=== PATIENT | female | born 1975 | race Two or more races ===

== ENCOUNTER 2024-05-14 11:03 | Emergency (ER) | payer MEDICARE, OTHER, SELFPAY ==
--- NOTE | ~2024-05-14 | XR_ITS ---
EXAMINATION: XR ABDOMEN 1 VIEW (KUB) HISTORY: constipation COMPARISON: Comparison is made with the prior examination dated 08/20/2019. FINDINGS: Two supine views of the abdomen are submitted. The bowel gas pattern is unremarkable, without evidence of mechanical obstruction. There is minimal stool in the colon. No abnormal calcifications are identified. There are numerous surgical clips in the upper abdomen.. There are no abnormal soft tissue masses. The patient is status post fusion of the lumbar spine. XR/XR KUB IMPRESSION: Minimal stool throughout the colon. Electronically signed by: Regino Bonilla MD 05/14/2024 12:08 PM CARY
[2024-05-14 11:36] VITALS: BP 144/81; PULSE 99; RESP 20; TEMP 36.2; O2SAT 100; BMI 17.8
--- NOTE | 2024-05-14 11:36 | ED_ITS ---
HPI - Abdominal Pain General Chief Complaint: Abdominal Pain Stated Complaint: constipated, nausea Time Seen by Provider: 05/14/24 20:47 Source: patient Limitations: no limitations History of Present Illness ED Provider: Tere Waller PA-C HPI narrative: 49-year-old female with a history of iron deficiency anemia, known gastric ulcer, status post gastric bypass, chronic constipation who presents with abdominal pain x5 days. Patient states she thinks she is constipated. Patient states she is having a burning sensation in her epigastric region. Denies coffee-ground hematemesis or melena. Patient is here visiting family, she has pending follow up with her healthcare providers back home. Pt sts she takes several medications to amnage her chronic gastritis. Denies abdominal distention, inability to pass flatus, patient had a bowel movement yesterday. Related Data Previous Rx's ?Medication ?Instructions ?Recorded aluminum-mag hydroxide-simethicone 10 ml PO TID PRN indigestion #300 05/15/24 400 mg-400 mg-40 mg/5 mL oral susp mL (Maalox Maximum Strength) lidocaine HCl 2 % mucosal solution 1 appl mucous membrane TID PRN 05/15/24 (Lidocaine Viscous) indigestion #300 mL Allergies Allergy/AdvReac Type Severity Reaction Status Date / Time Penicillins [PENICILLINS] Allergy Mild RASH Verified 05/14/24 11:39 penicillin V Allergy Unknown rash, Verified 05/14/24 11:39 redness and itching trazodone Allergy Unknown inadequate Verified 05/14/24 11:39 response ibuprofen [From Motrin] Allergy Anaphylaxis Verified 05/14/24 11:39 Lamotrigine Allergy Unknown stomach Uncoded 07/23/19 00:00 upset Pt states no food allergies Allergy Unknown Unknown Uncoded 05/14/24 11:39 seasonal allergies Allergy Unknown Unknown Uncoded 05/14/24 11:39 Review of Systems Review of Systems Yes all other systems are reviewed and are negative Constitutional: Denies fatigue and Denies fever(s) Cardiovascular: Denies chest pain and Denies dyspnea Respiratory: Denies dyspnea Gastrointestinal: Reports abdominal pain, Reports constipation, Reports dyspepsia, Reports heartburn, Reports nausea, Reports vomiting and Denies hematemesis Endocrine: Denies fatigue PMFSH Past Medical History Attestation statement: The following information was validated with the patient. Social History Social History Smoked in Last 30 Days: No Use of substances other than those prescribed or required for medical reasons: No Advance Directives: No Advance Directives Information Provided: Yes Do you have a plan to hurt others: No Plan Physical Exam ED Vital Signs: Vital Signs - 24 hr 05/14/24 11:36 05/14/24 16:41 05/14/24 20:54 Temperature 97.2 F 98.1 F 98.1 F Pulse Rate 99 76 80 Respiratory Rate 20 20 16 Blood Pressure 144/81 H 144/82 H 136/84 Pulse Oximetry 100 100 100 Oxygen Delivery Method Room Air Room Air Room Air 05/15/24 00:38 Temperature 99.1 F Pulse Rate 83 Respiratory Rate 20 Blood Pressure 113/78 Pulse Oximetry 100 Oxygen Delivery Method Room Air BMI result Body Mass Index 17.8 Const Other: Alert Orientation/consciousness: patient oriented x3 Resp Effort & Inspection: normal respiratory effort Cardio Other: Normal peripheral perfusion GI Other: Abdomen is soft, nondistended nontender no guarding Skin Other: Warm dry no rash Neuro General: patient oriented x3, gait normal, no focal motor deficits and CN's II- XI intact bilaterally Psych Other: Cooperative Course Course Course Narrative: This is a Rapid Medical Exam performed in triage by Maryan Pinzon PA-C. Full HPI, ROS and PE to be performed by primary ED provider. 49yo F w/pmhx chronic constipation presenting to the ED c/o constipation x5 days now with nausea & abdominal pain. Admits is passing small stools. Denies vomiting. Admits she had a CT scan in [place] 5 days ago for similar sx & showed constipation. tried multiple OTC meds & enema w/o relief PE: abdomen soft & nontender, no rebound or guarding Plan: Labs, KUB Reevaluation(s) Reevaluation #1: Symptoms improved with Maalox lidocaine we will send her with a this medication while she is here visiting Medical Decision Making Medical Decision Making MDM Narrative: 49-year-old female with a history of known iron deficiency anemia, gastric ulcer, status post gastric bypass, chronic constipation who presents with abdominal pain x5 days. Patient states she thinks she is constipated. Patient states she is having a burning sensation in her epigastric region. Denies coffee-ground hematemesis or melena. Patient is here visiting family, she has pending follow up with her healthcare providers back home. Pt sts she takes several medications to manage her chronic gastritis. Denies abdominal distention, inability to pass flatus, patient had a bowel movement yesterday. Problem: Known gastritis, chronic constipation, gastric bypass patient History: Per patient I have considered the following differential diagnoses: Acute gastritis, chronic epigastric pain, biliary colic, cholecystitis, pancreatitis, poorly controlled GERD, perforated ulcer, active GI bleed Plan: Screening labs and a KUB were obtained from triage. The patient is not currently constipated. Her labs were overall stable, she is anemic. The patient is aware that she is anemic, she is pending follow up this week with her equine pharmacology technician. She is not having symptoms of active GI bleed, upper or lower. Her discomfort is chronic, it is not new. I do not feel she requires advanced imaging. Her abdominal exam was benign, she has no peritoneal signs to suggest a perforated ulcer. And there was no free air noted on KUB. We will give Maalox with lidocaine to see if this helps her symptoms. I have independently reviewed the following tests: Labs: Stable anemia, no leukocytosis, no electrolyte abnormality, creatinine and BUN normal KUB: XR/XR KUB IMPRESSION: Minimal stool throughout the colon. Electronically signed by: Regino Bonilla MD 05/14/2024 12:08 PM [facility] Lab Data 05/14/24 11:49 05/14/24 11:49 Labs: Lab Results 05/14/24 Range/Units 11:49 WBC 5.4 (4.8-10.8) X10*3/uL RBC 4.56 (4.20-5.50) X10*6/uL Hgb 9.5 L (12.0-16.0) g/dl Hct 32.3 L (37.0-47.0) % MCV 70.8 L (80.0-98.0) fL MCH 20.8 L (27.0-33.0) pg MCHC 29.4 L (31.0-35.0) g/dl RDW 21.7 H (11.0-16.0) % Plt Count 347 (160-400) X10*3/uL MPV 8.5 L (9.4-12.3) fL Immature Gran % (Auto) 0.4 (0.0-0.4) % Neut % (Auto) 58.3 (45-73) % Lymph % (Auto) 28.9 (20-40) % [place]cho % (Auto) 8.5 (2-11) % Eos % (Auto) 2.8 (0-4) % Baso % (Auto) 1.1 (0-2) % Lymph # (Auto) 1.6 (1.2-4.9) X10*3/uL [place] # (Auto) 0.5 (0.1-1.2) X10*3/uL Eos # (Auto) 0.2 (0.0-0.4) X10*3/uL Baso # (Auto) 0.1 (0.0-0.2) X10*3/uL Abs Immat Gran (auto) 0.02 (0.00-0.03) X10*3/uL Absolute Neuts (auto) 3.2 (2.0-8.3) x10*3/uL Absolute Nucleated RBC 0.000 (0.0-0.012) X10*3/uL Nucleated RBC % (auto) 0.0 (0.0-0.2) /100WBC Sodium 142 (135-145) mmol/L Potassium 3.4 (3.3-5.1) mmol/L Chloride 110 H (96-108) mmol/L Carbon Dioxide 24 (22-29) mmol/L Anion Gap 11 L (12-20) BUN 8 L (9-16) mg/dL Creatinine 0.74 (0.5-1.4) mg/dL Estim Creat Clear Calc 64.7 Estimated GFR > 60 Random Glucose 100 (60-115) mg/dL Calcium 9.2 (8.4-10.2) mg/dL Magnesium 2.0 (1.6-2.6) mg/dL Total Bilirubin 0.3 (0.0-1.0) mg/dL Direct Bilirubin 0.2 (0.0-0.5) mg/dL AST 24 (5-31) U/L ALT 11 (0-31) U/L Alkaline Phosphatase 92 (39-117) U/L Total Protein 7.8 (6.5-8.0) g/dL Albumin 4.0 (3.5-5.0) g/dL Lipase 20 (8-78) U/L Medications Administered Discontinued Medications Generic Name Dose Route Start Last Admin Trade Name José Miguel PRN Reason Stop Dose Admin Acetaminophen 650 mg 05/14/24 16:41 05/14/24 16:44 Acetaminophen 325 Mg Tablet PO 05/14/24 16:42 650 mg ONCE ONE Administration Al Hydroxide/Mg Hydroxide 30 ml 05/14/24 23:48 05/14/24 23:55 Magnesium Hydrox/Alum Hydrox 30 Ml Oral.Susp PO 05/14/24 23:49 30 ml ONCE ONE Administration Lidocaine HCl 15 ml 05/14/24 23:48 05/14/24 23:55 Lidocaine Hcl Viscous 2 % 15 Ml Solution MUCOUS MEM 05/14/24 23:49 15 ml ONCE ONE Administration Discharge Plan Discharge Clinical Impression: Gastritis Patient Disposition: Home, Self-Care Instructions: Gastritis (ED), Diet for Stomach Ulcers and Gastritis (ED) Additional Instructions: All of your labs were normal, you were noted to be anemic, which you were aware of. Keep your pending appointment with a equine pharmacology technician. In regard for your upper abdominal discomfort, it appears your gastritis is exacerbated. See home care instructions. Use the Maalox lidocaine combination to help alleviate your discomfort. You need to follow up for a repeat endoscopy. Call your healthcare providers when you return home. Prescriptions: New alum-mag hydroxide-simeth [Maalox Maximum Strength] 400-400-40 mg/5 mL suspension 10 ml PO TID PRN (Reason: indigestion) Qty: 300 0RF lidocaine HCl [Lidocaine Viscous] 2 % solution 1 appl mucous membrane TID PRN (Reason: indigestion) Qty: 300 0RF Rx Instructions: use an equal amount with the maalox Print Language: [place]
[2024-05-14 11:56] LABS: MANUAL DIFF FLAG NO
[2024-05-14 12:01] LABS: Basophils Absolute Auto 0.1 X10*3/uL (0.0-0.2); Basophils Percent Auto 1.1 % (0-2); Eosinophils Absolute Auto 0.2 X10*3/uL (0.0-0.4); Eosinophils Percent Auto 2.8 % (0-4); Hematocrit 32.3 % (37.0-47.0); Hemoglobin 9.5 g/dl (12.0-16.0); Imm Gran Abs Auto 0.02 X10*3/uL (0.00-0.03); Imm Gran Pct Auto 0.4 % (0.0-0.4); Lymphocytes Absolute Auto 1.6 X10*3/uL (1.2-4.9); Lymphocytes Percent Auto 28.9 % (20-40); Mean Corpuscular HGB Conc 29.4 g/dl (31.0-35.0); Mean Corpuscular Hemoglobin 20.8 pg (27.0-33.0); Mean Corpuscular Volume 70.8 fL (80.0-98.0); Mean Platelet Volume 8.5 fL (9.4-12.3); Monocytes Absolute Auto 0.5 X10*3/uL (0.1-1.2); Monocytes Percent Auto 8.5 % (2-11); Neutrophils Absolute Auto 3.2 x10*3/uL (2.0-8.3); Neutrophils Percent Auto 58.3 % (45-73); Platelet Count 347 X10*3/uL (160-400); Red Blood Count 4.56 X10*6/uL (4.20-5.50); Red Cell Distribution Width 21.7 % (11.0-16.0); White Blood Count 5.4 X10*3/uL (4.8-10.8)
[2024-05-14 12:15] LABS: Alanine Aminotransferase 11 U/L (0-31); Alkaline Phosphatase 92 U/L (39-117); Anion Gap 11 (12-20); Aspartate Amino Transferase 24 U/L (5-31); Bilirubin Direct 0.2 mg/dL (0.0-0.5); Bilirubin Total 0.3 mg/dL (0.0-1.0); Blood Urea Nitrogen 8 mg/dL (9-16); Calcium 9.2 mg/dL (8.4-10.2); Carbon Dioxide 24 mmol/L (22-29); Chloride 110 mmol/L (96-108); Creatinine Clr Calc Pharmacy 64.7; Estimated Glomerular Filt Rate > 60; Glucose Random 100 mg/dL (60-115); Lipase 20 U/L (8-78); Potassium 3.4 mmol/L (3.3-5.1); Sodium 142 mmol/L (135-145); Total Protein 7.8 g/dL (6.5-8.0)
--- OUTSIDE RECORDS SUMMARY | 2024-05-14 13:42 | XMS_ITS | Encounter Summary ---
Author Organization [facility] Address [address] [place] [id number] Care Team Providers Care Human Resources Coordinator Name Role Phone José Antonio Villaseñor MD Primary Care Provider [phone] Rodríguez Saxena MD Unavailable Eldon Fitch MD Unavailable Reason for Referral * Consultation (Routine) - Authorized Specialty Diagnoses / Procedures Referred By Contac t Referred To Contact Hematology and Oncology Diagnoses Iron deficiency anemia, unspecified iron deficiency anemia type Procedures [place] OFFICE/OUTPATIENT [facility] 60 [place] [address] [place] [address] Phone: tel: fax: Jian Ramírez MD [address] [facility] [address] [place] [id number] Phone: tel: fax: Referral ID Status Reason Start Date Expiration Date Visits Requested Visits Authorized [id number] Authorized Specialty Services Required 05/01/2024 05/01/2025 1 1 Reason for Visit * Reason Comments ER Follow-up Encounter Details Date Type Department Care Team (Late Contact Info) Description 05/01/2024 9:00 AM EST Office Visit [facility] Family Medicine - [facility] [address] [facility], [address] [place] [id number] [place] [address] [place] [address] Constipation, unspecified constipation type (Primary Dx); Iron deficiency anemia, unspecified iron deficiency anemia type; Acute left-sided low back pain without sciatica; History of gastric bypass Social History Tobacco Use Types Packs/Day Years Used Date Smoking Tobacco: Former Cigarettes Smokeless Tobacco: Never PHQ-2 Answer Date Recorded Patient Health Questionnaire-2 Score 2 09/15/2021 Comments No Sex and Gender Information Value Date Recorded Sex Assigned at Female 10/09/2022 1:12 PM EDT Legal Sex Female 12:18 AM EDT Gender Identity Female 10/09/2022 1:12 PM EDT Sexual Orientation Straight 10/09/2022 1: 12 PM EDT documented as of this encounter Last Filed Vital Signs Vital Sign Reading Time Taken Comments Blood Pressure 106/74 05/01/2024 9:09 AM EST Pulse 73 05/01/2024 9:09 AM EST Temperature - - Respiratory Rate - - Oxygen Saturation 97% 05/01/2024 9:09 AM EST Inhaled Oxygen Concentration - - Weight 49.7 kg (109 lb 9.6 oz) 05/01/2024 9:09 A M EST Height 160 cm (5' 2.99 ) 05/01/2024 9:09 AM EST Body Mass Index 19.42 05/01/2024 9:09 AM EST documented in this encounter Progress Notes * José Antonio Villaseñor MD - 05/01/2024 9:00 AM EST Subjective Patient ID: Shayla Brandon is a 49 y.o. female who presents for ER Follow-up. Presents for follow-up after ER visit on 04/30/2024. Reports feeling less pain today. Objective Physical Exam Vitals and nursing note reviewed. Constitutional: Appearance: Normal appearance. Pulmonary: Effort: Pulmonary effort is normal. Abdominal: General: There is no distension. Palpations: Abdomen is soft. Tenderness: There is no abdominal tenderness. Skin: General: Skin is warm and dry. Neurological: General: No focal deficit present. Mental Status: She is alert. Psychiatric: Mood and Affect: Mood normal. Behavior: Behavior normal. Assessment/Plan Diagnoses and all orders for this visit: Plan: Reviewed ER note from 04/30/24. Independently reviewed CT results. Discussed findings of constipation. Reviewed supportive care. Discussed increased fiber. Reviewed CBC results in ER, consistentwith her chronic anemia. Suspect poor iron absorption due to hx fo gastric bypass surgery. Refer to hematology for further evaluation. Constipation, unspecified constipation type Iron deficiency anemia, unspecified iron deficiency anemia type - Ambulatory referral to Hematology / Oncology; Future History of gastric bypass documented in this encounter Plan of Treatment Scheduled Referrals Name Type Priority Associated Diagnoses Orde r Schedule Ambulatory referral to Hematology / Oncology Outpatient Referral Routine Iron deficiency anemia, unspecified iron deficiency anemia type Expected: 05/01/2024 (Approximate), Expires: 05/01/2025 documented as of this encounter Visit Diagnoses Diagnosis Constipation, unspecified constipation type- Primary Iron deficiency anemia, unspecified iron deficiency anemia type Acute left-sided low back pain without sciatica History of gastric bypass documented in this encounter Care Teams Human Resources Coordinator Relationship Specialty Start [place] [address] [place] [address] PCP - General 07/19/21 Rodríguez Saxena MD [address] [facility] [address] [place] [address] Consulting Physician Neurology 01/09/23 Eldon Fitch MD [address] [facility] [address] [place] [id number] Consulting Physician Neurosurgery 05/08/23 documented as of this encounter
--- OUTSIDE RECORDS SUMMARY | 2024-05-14 13:42 | XMS_ITS ---
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 Name Role Phone Ramon Woods Unavailable [phone] Patient, patient Unavailable Unavailable Allergies Allergen (clinical drug ingredient) Drug/Non Drug Allergy documented on EMR Reaction Allergy Type Onset Date Status Penicillins penicillins (uncoded) rash Allergy Active Results Component Value Reference Range Notes Ultrasound guided injection right Reviewed date:08/28/2023 08:02:49 PM Interpretation: Performing Lab: Notes/Report: Ultrasound:DX Capsulitis/Soo nt Pain Rt Ankle Reviewed date:08/28/2023 08:37:08 PM Interpretation: Performing Lab: Notes/Report: REASON FOR VISIT Burning, Tingling and Numbness Bilateral feet, Right foot leg pain Medications Medication SIG (Take, Route, Fr equency, Duration) Notes Start Date End Date Status cyclobenzaprine 5 mg 1 tab(s) orally 3 times a day Active amitriptyline 10 mg 1 tab(s) orally once a day (at bedtime) Active Linzess 145 mcg 1 cap(s) orally once a day Active SUMAtriptan 100 mg 1 tab(s) orally once Active Simponi Active omeprazole 20 mg as directed orally once a day Active DULoxetine 30 mg 1 cap(s) orally 2 times a day Active levocetirizine 5 mg 1 tab(s) orally once a day (in the evening) Active Social History Tobacco Use: Social History Observation Description Date Details (start date - stop date) Current Smoker NA - NA Smoking Question Answer Notes Additional Findings: Tobacco User Light cigarett e smoker ((1-9 cigs/day) Are you a: current smoker How often do you smoke cigarettes? some days, bu t not every day How many cigarettes a day do you smoke? 5 or les s Alcohol Question Answer Notes Did you have a drink contain ing alcohol in the past year? Yes How often did you have six o r more drinks on one occasion in the past year? Never (0 points) How many drinks did you have on a typical day when you were drinking in the past year? 1 or 2 (0 points) How often did you have a dri nk containing alcohol in the past year? 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) Active confirmed Vital Signs Blood pressure systolic 110 mm Hg 08/28/19 24 Blood pressure diastolic 56 mm Hg 024 Heart Rate 54 /min 08/28/2023 Height 63 in 08/28/2023 Weight 106 lbs 08/28/2023 BMI 18.78 08/28/2023 Procedures Procedure Date Ordered Date Performed Result Body Sit e INJ TENDON SHEATH/LIGAMENT 08/28/2023 08/28/2023 RT Encounters Encounter Location Date Provider Diagnosis Ramon Peggy [facility] [address] [id number] 08/28/2023 Ramonlisbet Woods Pain in right ankle and joints of right foot M25.571 ; 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 ; Other specified acquired deformities of right lower leg M21.861 ; Other synovitis and tenosynovitis, right ankle and foot M65.871 and Other instability, right ankle M25.371 Assessments Encounter Date Diagnosis (ICD Code) Assessment Notes Treatment Notes Treatment Clinical Notes Section Notes 08/28/2023 Pain in right ankle and joints of right foot (ICD-10 - M25.571) Discussed with patient to rest the extremity and reduce activity, apply ice for 10 minutes every two hours, maintain the strapping and apply compression dressing over the area and lastly, keep the extremity elevated above heart level with pillows 08/28/2023 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 Use strapping. Follow up 1 week Discussed in detail with the patient the benefit of strapping to support and stabilize strained structures as well as immobilization to facilitate healing, decrease of inflammation and swelling Plan Of Treatment Treatment Notes Assessment Notes Pain in right ankle and join ts of right foot Discussed with patient to rest the extremity and reduce activity, apply ice for 10 minutes every two hours, maintain the strapping and apply compression dressing over the area and lastly, keep the extremity elevated above heart level with pillows Other Therapeutic injectio n given to relief nerve pain and inflammation. Use strapping. Follow up 1 week Next Appt Details Follow Up: 2 Weeks, Reason: Procedure Notes * Category Sub-Category Detail Notes (24364)Foot/Ankle Purpose Strapping of t he foot and ankle consisting of application of non-medicated, adhesive gauze dressings, applied by overlapping wraps of gauze to exert pressure and hold a structure in place for the purpose of providing structural support and to offload bony prominence, support, stabilize and immobilize strained and stressed tissues and help compress additional edema from the area. The strapping is medically reasonable and necessary. Indication Foot Deformity/Insta bility Location Right foot and ankle Type of Strapping Modified Hurt Compr vane, to knee, Surgigrip size: E Patient Instructions Patient instructed to leave strapping intact for 24 hours, then may remove. Patient was advised to remove strapping sooner should become uncomfortable., Upon removal of strapping, patient to continue use of Surgi-stretcher helper Materials Used Tubigrip/Coban Tendon Sheath/Plantar Fascia Injection Right Peroneal Tendon 1cc 0.5% Marcaine Plain 1cc Dexamethasone 4 mg/ml Procedure in detail: A #25 gauge 1.5 needle filled with the solution noted was introduced into the site using a guided ultrasound throughout the procedure to avoid vascular trauma. The painful site was fully infiltrated. Following the injection, pressure was maintained at the site. The patient tolerated the procedure well. Right Extensor Digital Tendon Trigger Point Injection Right Location : Sural.5cc Lidocaine 2%, .5cc Vitamin B12 (14751) Needle Guided Ultrasound Location Right Foot, Area prepped with Alcohol Indications Significant edema ov erlying the tendonous structures Possible obstruction to painful area To more accurately inject the structure with significant pathology Technique After clinical evalu ation and examination and review of focused history directed at the site of chief complaint, it was discussed with patient that in order to properly visualize the area to be infiltrated, needle guided ultrasound was indicated. The area of chief complaint was scanned using a 8.0 mhz probe. Views were taken in both the longitudinal and transverse planes. Impression Use of Needle Guided Ultrasound Demonstrates: Inflammation Soft Tissue Edema surrounding the structure Tendonitis of the structure (91084) Limited Extremity Ultrasound Location , Right Area prepped with Alcohol Indications Pain or dysfunction Technique After clinical evalu ation and examination and review of focused history directed at the site of chief complaint, it was discussed with patient that in order to properly visualize the area, ultrasound was indicated. The area of chief complaint was scanned using a 8.0 mhz probe. Views were taken in both the longitudinal and transverse planes., Permanently recorded images saved and available upon request Progress Notes * Shayla TILLEYDOB:[birth year] (48 yo F)Acc No.[id number]:08/28/2023 Patient:?Shayla TILLEY Provider:?Ramon Woods DPM :1975???Age:48 Y???Sex:Female D ate:08/28/2023 Address:[address] [place], [place] [id number] Subjective: * Chief Complaints: * ???Burning, Tingling and Num bness Bilateral feetRight foot leg pain * HPI: ???Left foot:?Duration?3 years.?Symptoms?for?more than 6 months?numbness, burning sensation, tingling sensation, sharp pain, shooting pain,?that radiates to the toes,?instability, Aggravated by: any physical activity.?ConservativeTreatment?Denies prior treatment.?weakness?throughout the foot, noticed when walking.?pain?for?more than 6 months?dorsal forefoot, plantar forefoot, Onset: gradual with acute worsening, Severity: that is worsening, Nature:?numbness,?burning sensation,?tingling sensation, sharp pain, shooting pain,?that radiates to the toes,?instability,?, Aggravated: walking, prolonged standing, any physical activity?, Relieved: nothing at this time.?numbness?on the top of the foot, on the bottom of the foot.?pain scale?.07/10.?parasthesia scale?,08/09.?Patient comes to office for continuation of b12 injections.Patient states she still is having constant pain as in burning/numbness and notes that tingling sensation comes and goes.Patient states she has seen little improvement but still has major pain. ???Right foot:?Duration?3 years.?Symptoms?for?more than 6 months?numbness, burning sensation, tingling sensation, sharp pain, shooting pain,?that radiates to the toes, aches, instability, Onset: gradual with acute worsening, Nature: pressure sensation, Nature: gnawing, Nature: shooting, Aggravated by: any physical activity.?Conservative Treatment?Denies prior treatment.?weakness?throughout the foot, noticed when walking.?numbness?for?more than 6 months?throughout the foot.?pain?for?less than 6 months?dorsal forefoot, plantar forefoot, dorsal midfoot, plantar midfoot,??Onset: gradual with acute worsening, Severity: that is worsening, Nature:?numbness,?burning sensation,?tingling sensation, sharp pain, shooting pain,?that radiates to the toes,?instability,?Aggravated: walking, prolonged standing, any physical activity?, Relieved: nothing at this time?.?pain scale?.09/09.?parasthesia scale?08/09.?Bilateral feet:?pain?at rest, on both sides, on the bottom, on the top, Onset: gradual with acute worsening, Nature: shooting.?swelling?for?less than 6 months that is constant, that worsens in the evening, Onset: gradual with acute worsening, Nature: cramping, pressure sensation, Aggravated by: any physical activity.?weakness?with walking, with climbing stairs, with getting up from sitting.?Symptoms?numbness, tingling sensation, burning sensation, sharp pain, shooting pain, instability,?that radiates to the toes, Onset: gradual with acute worsening, , cramping, coolness, aches, that radiates to the toes, that radiates up the leg.?instability?feeling of giving way when walking, feeling of giving way with side to side movement.?cramps?during ambulation , during ambulation, at night time.?Prior Treatment?Denies prior treatment.?Bilateral Leg:?pain?during ambulation, at rest, Onset: gradual with acute worsening, Nature: shooting.?swelling?that is constant, that worsens in the evening, Onset: insidious, Nature: cramping, pressure sensation, Aggravated by: any physical activity, Relieved by: lying down.?weakness?with walking, with climbing stairs, with getting up from sitting. Symptoms?tingling sensation, numbness, that radiates up the leg, Onset: gradual with acute worsening , cramping, aches, coolness, that radiates to the toes.?instability?feeling of giving way when walking, feeling of giving way with side to side movement.?cramps?during ambulation , during ambulation, at night time.? * ROS:?Neurology:?Headache?yes.?Tingling/numbness/burning?yes.? * Medical History:? * Surgical History:?Lower back fusion 2021Upper neck fusion 2020 * Family History:?Mother: alexa dove 72 yrs, diagnosed with Hypertension.?Father: alive 76 yrs.?Siblings: alive.?Child: alive.?1 sister(s) . 3 son(s) , 1 daughter(s) - healthy. .? * Social History:?General:?Alcohol?Did you have a drink containing alcohol in the past year??Yes,?How often did you have six or more drinks on one occasion in the past year??Never (0 points),?How many drinks did you have on a typical day when you were drinking in the past year??1 or 2 (0 points),?How often did you have a drink containing alcohol in the past year??Two to three times per week (3 points),?Points?3,?Interpretation?Positive.?Caffeine: 9 cups a day. Smoking?Additional Findings: Tobacco User?Light cigarette smoker ((1-9 cigs/day),?Are you a:?current smoker,?Packs per day:?.25,?# of years has been smoking?9,?How often do you smoke cigarettes??some days, but not every day,?How many cigarettes a day do you smoke??5 or less.?Exercise: NONE. Recreational drug use: NONE. HIV/AIDS: NEGATIVE. * Medications:?TakingLinzess 1 45 mcg capsule 1 cap(s) orally once a day SUMAtriptan 100 mg tablet 1 tab(s) orally once cyclobenzaprine 5 mg tablet 1 tab(s) orally 3 times a day amitriptyline 10 mg tablet 1 tab(s) orally once a day (at bedtime) DULoxetine 30 mg delayed release capsule 1 cap(s) orally 2 times a day levocetirizine 5 mg tablet 1 tab(s) orally once a day (in the evening) omeprazole 20 mg tablet, disintegrating, delayed release as directed orally once a day Simponi Medication List reviewed and reconciled with the patientTaking Linzess 145 mcg capsule 1 cap(s) orally once a day Taking SUMAtriptan 100 mg tablet 1 tab(s) orally once Taking cyclobenzaprine 5 mg tablet 1 tab(s) orally 3 times a day Taking amitriptyline 10 mg tablet 1 tab(s) orally once a day (at bedtime) Taking DULoxetine 30 mg delayed release capsule 1 cap(s) orally 2 times a day Taking levocetirizine 5 mg tablet 1 tab(s) orally once a day (in the evening) Taking omeprazole 20 mg tablet, disintegrating, delayed release as directed orally once a day Taking Simponi Medication List reviewed and reconciled with the patient * Allergies:?penicillins: rash - Criticality Unknownno[Allergies Verified] Objective: * Vitals:?Height:63, Weight:10 6, BMI:18.78, Blood Pressure:110/56, Heart Rate:54, Pain Scale:6, Shoe Size: 7.5-8. * Examination: ???Vascular: ?Posterior Tibial Pulse?Bilateral Posterior Tibial palpable 1/4.?Dorsalis Pedis Pulse?Bilateral Dorsalis Pedis palpable 1/4.?Capillary Refill?Bilateral Delayed < 3 seconds digits 1-5.?Temperature Gradient?Bilateral Foot/Ankle Cool to warm distal to proximal.?Edema?Bilateral Foot pitting mild.?Inspection?Bilateral Foot Ankle negative cyanosis palor on elevation rubor upon dependency ecchymosis positive telangectasias- hair growth absent.?Cramping?Bilateral Patient complains of cramping in foot during ambulation Intermittant.?Neurologic: ?General?Bilateral gross epicritic sensations diminished Lesser toes(S1 nerve root) Great toe(L5 nerve root) Medial and lateral aspect calves(L4,L5 nerve roots) .?Sharp sensation?Bilateral diminished dorsal medial and lateral midfootL4, L5 nerve roots) plantar medial and lateral midfoot(L5,S1 nerve roots) digits(L5,S1 nerve roots).?Vibratory?Bilateral great toe lesser digits.?Proprioception?Bilateral: diminished.?[place] 5.07 Monofilament?Bilateral hallux lesser digits medial arch lateral arch negative.?Tinel's Sign?Bilateral positive common peroneal nerve medial dorsal cutaneous nerve posterior tibial nerve.?Parasthesia?Bilateral foot numbness foot ankle leg tingling.?Dermatologic: ?Skin?Bilateral Foot Ankle poor turgor thin shiny dry diffuse hyperpigmentary changes No breakdown or ulceration noted , Bilateral ankle lateral 5mm area diffuse hyperpigmentary changes atrophic skin shiny mottled and splotchy appearance indurated.?Interdigital Maceration?Bilateral: absent interspace 1-4.?Erythema?Bilateral: foot absent.?Orthopedic: ?Foot Type?Bilateral neutral.?Ankle Joint ROM?Bilateral equinus.?STJ ROM?Bilateral normal.?Calcaneal Stance Position?Bilateral, Neutral.?Lisfranc's Joint ROM?Bilateral, Normal.?Forefoot Position? Bilateral Valgus.?Hammertoes?Bilateral contracted digital syndrome hammertoe digits 2-5.?Pain on Palpation MPJ's/Digits?Bilateral 2nd 3rd 4th 5th mtpj dorsal plantar Painful interspace 1st intermetatarsal space 2nd intermetatarsal space 3rd intermetatarsal space 4th intermetatarsal space.?Pain on Palpation Foot?Bilateral pain along the course of the posterior tibial tendon , EDL tendon , Lisfranc joint and medial subtalar joint.?Pain on Palpation Ankle?Right pain on palpation to tib fib joint syndesmosis peroneals.?Gait?Bilateral: Antalgic.? Therapeutic Interventions: Assessment: * Assessment: 1.?Idiopathic progressive ne uropathy - G60.3 (Primary)?2.?Pain in right ankle and joints of right foot - M25.571?3.?Other specified acquired deformities of right lower leg - M21.861?4.?Other synovitis and tenosynovitis, right ankle and foot - M65.871?5.?Other instability, right ankle - M25.371? Plan: * Treatment: Notes: Discussed with patient to rest the extremity and reduce activity, apply ice for 10 minutes every two hours, maintain the strapping and apply compression dressing over the area and lastly, keepthe extremity elevated above heart level with pillows??2.?Other synovitis and tenosynovitis, right ankle and foot?Imaging: Ultrasound guided injection right (Performed Date - 08/28/2023) ?Procedure: INJ TENDON SHEATH/LIGAMENT (Performed Date 08/28/2023)?RT 3.?Others? Notes: Therapeutic injection given to relief nerve pain and inflammation. Use strapping. Follow up 1 week?? Clinical Notes:Discussed in detail with the patient the benefit of strapping to support and stabilize strained structures as well as immobilization to facilitate healing, decrease of inflammation andswelling?? * Procedures:?(34061) Needle Guided Ultrasound:?Location?Right Foot, .?Area prepped with?Alcohol.?Indications?Significant edema overlying the tendonous structures Possible obstruction to painful area To more accurately inject the structure with significant pathology.?Technique After clinical evaluation and examination and review of focused history directed at the site of chief complaint, it was discussed with patient that in order to properly visualize the area to be infiltrated, needle guided ultrasound was indicated. The area of chief complaint was scanned using a 8.0 mhz probe. Views were taken in both the longitudinal and transverse planes. .?Impression?Use of Needle Guided Ultrasound Demonstrates: Inflammation Soft Tissue Edema surrounding the structure Tendonitis of the structure.?(89187) Limited Extremity Ultrasound:?Location?, Right.?Area prepped with?Alcohol.?Indications?Pain or dysfunction.?Technique?After clinical evaluation and examination and review of focused history directed at the site of chief complaint, it was discussed with patient that in order to properly visualize the area, ultrasound was indicated. The area of chief complaint was scanned using a 8.0 mhz probe. Views were taken in both the longitudinal and transverse planes.,Permanently recorded images saved and available upon request.?Trigger Point Injection:?Right?Location:?Sural.5cc Lidocaine 2%, .5cc Vitamin B12.?Tendon Sheath/Plantar Fascia Injection:?Right Peroneal Tendon?1cc 0.5% Marcaine Plain?1cc Dexamethasone 4 mg/ml?Procedure in detail: A #25 gauge 1.5 needle filled with the solution noted was introduced into the site using a guided ultrasound throughout the procedure to avoid vascular trauma. The painful site was fully infiltrated. Following the injection, pressure was maintained at the site. The patient tolerated the procedure well..?Right Extensor Digital Tendon?.?(70900)Foot/Ankle:?Purpose?Strapping of the foot and ankle consisting of application of non-medicated, adhesive gauze dressings, applied by overlapping wraps of gauze to exert pressure and hold a structure in place for the purpose of providing structural support and to offload bony prominence, support, stabilize and immobilize strained and stressed tissues and help compress additional edema from the area. The strapping is medically reasonable and necessary..?Materials Used?Tubigrip/Coban.?Indication?Foot Deformity/Instability .?Location?Right foot and ankle.?Type of Strapping???Modified Hurt Compression, to knee, Surgigrip size: E.?Patient Instructions?Patient instructed to leave strapping intact for 24 hours, then may remove. Patient was advised to remove strapping sooner should become uncomfortable., Upon removal of strapping, patient to continue use of Surgi-stretcher helper .? * Procedure Codes:?61690 US XT R NON-VASC LMTD, Modifiers: 59 38519 STRAPPING OF ANKLE AND/OR FT, [place]: [place] 81909 INJ TENDON SHEATH/LIGAMENT, Mod[place]: [place] 58565 ULTRASOUND GUIDANCE FOR NEEDLE PLACEMENT, Modifiers: 59 J1100 INJ DEXAMETHOSONE SODIM PHOSHATE 1 MG * Preventive Medicine:? ??Counseling:?Smoking cessation recommended?Patient counselled on the dangers of tobacco use and urged to quit.?05/29/2023,?Counseled the Patient on tobacco use, cessation provided?05/29/2023.?Alcohol Screening?MODERATION OF ETOH CONSUMPTION RECOMMENDATION:?Alcohol abuse prevention education.? Injury prevention: Trip and fall precautions reviewed?Screening:?No falls in the past year.?Proper footwear?Advise Athletic shoe.? ??PQRS:?PAIN ASSESSMENT WAS PERFORMED UTILIZED THE NUMERIC RATING SCALE ?Follow- up Plan documented:?Yes.?The patient was advised to call the office as needed with any questions or concerns prior to next appointment. * Follow Up:?2 Weeks * * Sign off status: Completed true * Provider:?Ramon Woods DPM Date:?08/28/2023 Generated for Vj lindsay/Nickolas/eTransmitting on:?05/14/2024 01:42 PM EST History and Physical Notes * HPI (History of Present Illness) Category Sub-Category Detail Notes Category Not es Bilateral feet swelling that is constant , that worsens in the evening, Onset: gradual with acute worsening, Nature: cramping, pressure sensation, Aggravated by: any physical activity Symptoms numbness, tingling s ensation, burning sensation, sharp pain, shooting pain, instability, that radiates to the toes, Onset: gradual with acute worsening, , cramping, coolness, aches, that radiates to the toes, that radiates up the leg instability feeling of giving wa y when walking, feeling of giving way with side to side movement pain at rest, on both rolando es, on the bottom, on the top, Onset: gradual with acute worsening, Nature: shooting weakness with walking, with c limbing stairs, with getting up from sitting cramps during ambulation , during ambulation, at night time Prior Treatment Denies prior treatme nt Left foot Symptoms numbness, burnin g sensation, tingling sensation, sharp pain, shooting pain, that radiates to the toes, instability, Aggravated by: any physical activity Patient comes to office for continuation of b12 injections.Patient states she still is having constant pain as in burning/numbness and notes that tingling sensation comes and goes.Patient states she has seen little improvement but still has major pain. weakness throughout the foot, noticed when walking numbness on the top of the fo ot, on the bottom of the foot pain dorsal forefoot, armando ntar forefoot, Onset: gradual with acute worsening, Severity: that is worsening, Nature: numbness, burning sensation, tingling sensation, sharp pain, shooting pain, that radiates to the toes, instability, , Aggravated: walking, prolonged standing, any physical activity , Relieved: nothing at this time pain scale . 4/10 parasthesia scale , 5/10 ConservativeTreatment Denies prior treat ment Duration 3 years Bilateral Leg swelling that is constant , that worsens in the evening, Onset: insidious, Nature: cramping, pressure sensation, Aggravated by: any physical activity, Relieved by: lying down Symptoms tingling sensation, numbness, that radiates up the leg, Onset: gradual with acute worsening , cramping, aches, coolness, that radiates to the toes instability feeling of giving wa y when walking, feeling of giving way with side to side movement pain during ambulation, a t rest, Onset: gradual with acute worsening, Nature: shooting weakness with walking, with c limbing stairs, with getting up from sitting cramps during ambulation , during ambulation, at night time Right foot Symptoms numbness, burnin g sensation, tingling sensation, sharp pain, shooting pain, that radiates to the toes, aches, instability, Onset: gradual with acute worsening, Nature: pressure sensation, Nature: gnawing, Nature: shooting, Aggravated by: any physical activity weakness throughout the foot, noticed when walking numbness throughout the foot pain dorsal forefoot, armando ntar forefoot, dorsal midfoot, plantar midfoot, Onset: gradual with acute worsening, Severity: that is worsening, Nature: numbness, burning sensation, tingling sensation, sharp pain, shooting pain, that radiates to the toes, instability, Aggravated: walking, prolonged standing, any physical activity , Relieved: nothing at this time pain scale . 6/10 parasthesia scale 5/10 Conservative Treatment Denies prior alvaro tment Duration 3 years Examination Category Sub-Category Detail Notes Category Not es Vascular Dorsalis Pedis Pulse Bilateral Dorsalis P dickson palpable 1/4 Posterior Tibial Pulse Bilateral Posteri or Tibial palpable 1/4 Capillary Refill Bilateral Delayed < 3 seconds digits 1-5 Temperature Gradient Bilateral Foot/Ankl e Cool to warm distal to proximal Inspection Bilateral Foot Ankle negative cyanosis palor on elevation rubor upon dependency ecchymosis positive telangectasias- hair growth absent Edema Bilateral Foot pitti ng mild Cramping Bilateral Patient co mplains of cramping in foot during ambulation Intermittant Neurologic Deep Tendon Reflex Muscle Power Babinski Reflex Tinel's Sign Bilateral positive c ommon peroneal nerve medial dorsal cutaneous nerve posterior tibial nerve Vibratory Bilateral great toe lesser digits [place] 5.07 Monofilament Bilat eral hallux lesser digits medial arch lateral arch negative Sharp sensation Bilateral diminished dorsal medial and lateral midfootL4, L5 nerve roots) plantar medial and lateral midfoot(L5,S1 nerve roots) digits(L5,S1 nerve roots) Parasthesia Bilateral foot numbn ess foot ankle leg tingling General Bilateral gross epic ritic sensations diminished Lesser toes(S1 nerve root) Great toe(L5 nerve root) Medial and lateral aspect calves(L4,L5 nerve roots) Proprioception Bilateral: diminishe d NCV/EMG Indications Dermatologic Skin Bilateral Foot A nkle poor turgor thin shiny dry diffuse hyperpigmentary changes No breakdown or ulceration noted , Bilateral ankle lateral 5mm area diffuse hyperpigmentary changes atrophic skin shiny mottled and splotchy appearance indurated Interdigital Maceration Bilateral: absen t interspace 1-4 Erythema Bilateral: foot abse nt Orthopedic Foot Type Bilateral neutral Ankle Joint ROM Bilateral equinus STJ ROM Bilateral normal Lisfranc's Joint ROM Bilateral, Normal Calcaneal Stance Position Bilateral, Opal tral Forefoot Position Bilateral Valgus Hammertoes Bilateral contracted digital syndrome hammertoe digits 2-5 Gait Bilateral: Antalgic Pain on Palpation MPJ's/Digits Bilateral 2nd 3rd 4th 5th mtpj dorsal plantar Painful interspace 1st intermetatarsal space 2nd intermetatarsal space 3rd intermetatarsal space 4th intermetatarsal space Pain on Palpation Foot Bilateral pain al lisette the course of the posterior tibial tendon , EDL tendon , Lisfranc joint and medial subtalar joint Pain on Palpation Ankle Right pain on pa lpation to tib fib joint syndesmosis peroneals
--- OUTSIDE RECORDS SUMMARY | 2024-05-14 13:42 | XMS_ITS | Encounter Summary ---
Author Organization [facility] Syste Address [address] [place] [address] Care Team Providers Care Computer Systems Technology Instructor Name Role Phone José Antonio Villaseñor MD Primary Care Provider [phone] Rodríguez Saxena MD Unavailable Eldon Fitch MD Unavailable Encounter Details Date Type Department Care Team (Latest Contact Info) Description 04/30/2024 Travel Social History Tobacco Use Types Packs/Day Years [...] PM EDT documented as of this encounter Plan of Treatment Not on file documented as of this encounter Visit Diagnoses Not on filedocumented in this encounter Care Teams Computer Systems Technology Instructor Relationship Specialty Start Date [place] [address] [place] [address] PCP - General 07/19/21 Rodríguez Saxena MD [address] [id number] Consulting Physician Neurology 01/09/23 Eldon Fitch MD [address] [facility] [address] [place] [address] Consulting Physician Neurosurgery 05/08/23 documented as of this encounter
--- OUTSIDE RECORDS SUMMARY | 2024-05-14 13:42 | XMS_ITS | Encounter Summary ---
Author Organization [facility] Syste m Address [address] [place] [address] Care Team Providers Care Aquarium Specialist Name Role Phone José Antonio Villaseñor MD Primary Care Provider [phone] Rodríguez Saxena MD Unavailable [phone] Eldon Fitch MD Unavailable Encounter Details Date Type Department Care Team (Late st Contact Info) Description 05/01/2024 Telephone [facility] Family Medicine - [facility] [address] [facility], 2nd [address] [place], [place] [phone] [place] [address] [place], [place] [id number] Social History Tobacco Use Types Packs/Day Years [...] on filedocumented in this encounter Care Teams Aquarium Specialist Relationship Specialty Start Date [place] [address] [place], [place] [id number] PCP - General 07/19/21 Rodríguez Saxena MD [address] [facility] [address] [place] [address] Consulting Physician Neurology 01/09/23 Eldon Fitch MD [address] [facility] [address] [place] [address] Consulting Physician Neurosurgery 05/08/23 documented as of this encounter
--- OUTSIDE RECORDS SUMMARY | 2024-05-14 13:42 | XMS_ITS | Encounter Summary ---
Author Organization [facility] Syste m Address [address] [place] [address] Care Team Providers Care Group Director Name Role Phone José Antonio Villaseñor MD Primary Care Provider [phone] Rodríguez Saxena MD Unavailable Eldon Fitch MD Unavailable Reason for Visit * Reason Onset Date Comments Referral 05/01/2024 Encounter Details Date Type Department Care Team (Late st Contact Info) Description 05/01/2024 Telephone [facility] Family Medicine - [facility] [address] [facility], [address] [place] [address] [place] [address] [place] [address] Referral Social History Tobacco Use Types Packs/Day Years Used Date Smoking Tobacco: Former Cigarettes Smokeless Tobacco: Never PHQ-2 Answer Date Recorded Patient Health Questionnaire-2 Score 2 09/15/2021 Comments No Sex and Gender Information Value Date Recorded Sex Assigned at Female 10/09/2022 1:12 PM EDT Legal Sex Female 12:18 AM EDT Gender Identity Female 10/09/2022 1:12 PM EDT Sexual Orientation Straight 10/09/2022 1 :12 PM EDT documented as of this encounter Miscellaneous Notes * Telephone Encounter - Silvana Perez MA - 05/01/2024 12:10 PM EST Order placed * Telephone Encounter - Rosario Estevez - 05/01/2024 11:03 AM EST Who is calling: (first, last name) MYLA FLOWERS What is the reason for the call: asking for a referral for oncology Does the pt. need a call back & why?no Best Contact Number:[phone] Details to clarify the request: requesting referral for oncology Live Transfer (Y/N) no documented in this encounter Plan of Treatment Not on file documented as of this encounter Visit Diagnoses Not on filedocumented in this encounter Care Teams Group Director Relationship Specialty Start [place] [address] [place] [address] PCP - General 07/19/21 Rodríguez Saxena MD [address] [facility] [address] [place] [address] Consulting Physician Neurology 01/09/23 Eldon Fitch MD [address] [facility] [address] [place] [address] Consulting Physician Neurosurgery 05/08/23 documented as of this encounter
--- OUTSIDE RECORDS SUMMARY | 2024-05-14 13:42 | XMS_ITS | Patient Health Record ---
Author Organization [facility] Address [address] [place] [address] Care Team Providers Care Drywaller Name Role Phone José Antonio Villaseñor M.D. Primary Care Provider Bo Werner Unavailable ALLERGIES Allergen (clinical drug ingredient) Drug/Non Drug Allergy documented on EMR Reaction Allergy Type Onset Date Status Penicillin Unknown Drug Allergy Active REASON FOR REFERRAL No Information MEDICATIONS Medication SIG (Take, Route, Frequency, Duration) Notes Start Date End Date Status Famotidine 40 MG 1 tablet Orally ever y 12 hour for 90 days 03/22/2022 Unknown Omeprazole 20 MG 1 capsule Orally kacie ry 12 hours for 90 days 03/22/2022 Unknown Flovent HFA 110 MCG/ACT 2 puffs Inhalati on Twice a day Unknown Albuterol Sulfate HFA 108 (90 Base) MCG/ACT 1 puff as needed Inhalation every 4 hrs Unknown Ondansetron HCl 4 MG 1 tablet Orally Onc e a day for 30 days 12/16/2021 Unknown Simponi 50 MG/0.5ML as directed Subcutaneous Unknown Sucralfate 1 GM/10ML TAKE 10 MLS ON AN E MPTY STOMACH EVERY 6 HOURS Unknown Cyclobenzaprine HCl 5 MG 1 tablet at bed time as needed Orally Once a day Unknown SOCIAL HISTORY Tobacco Use: Social History Observation Description Date Details (start date - stop date) Never Smoker NA - NA Sex Assigned At : Social History Observation Description Sex Assigned At Female Tobacco Use/Smoking Question Answer Notes Tobacco use: nonsmoker Alcohol Screen (Audit-C) Question Answer Notes Did you have a drink contain ing alcohol in the past year? Yes How often did you have a dri nk containing alcohol in the past year? Monthly or less (1 point) Points 1 Interpretation Negative PROBLEMS Problem Type ICD Code Onset Dates Problem Status W/U Status Risk SNOMED Code Notes Problem Nausea (R11.0) Active confirmed Nausea (160474850) 12/16/2021 Will start on antiemetics. She will need an EGD in the near future. Will do the same day as the colonoscopy 01/31/2022 She is off PPi No nausea or dyspepsia at this time 06/19/2022 Improving slowly Will follow up clinically 08/22/2022 Resolve at this point Problem SCREENING FOR COLON CANCER (Z12.11) Active confirmed Screening for colon cancer (030854303) 01/31/2022 Patient will brin in results of her last colonoscopy to asses when does she need to repeat one Problem REFLUX (K21.9) Active confirmed Gastroe sophageal reflux disease (106749906) Problem CONSTIPATION (K59.09) Active confirmed Constipation (91784555) 12/16/2021 Stop Amitiza Start Linzess 72mcg samples given Will follow up clinically 01/31/2022 Will increase Linzess to 145mcg daily Samples given Will follow up clinically in 1 month to asses response 03/03/2022 Continue on Linzess 145mcg daily in AM 06/19/2022 Continue on Linzess 145mcg. This is working for her Problem GASTRIC ULCER (K25.9) Active confirmed Gastric ulcer (309907928) 03/22/2022 This ulcer seems to be chronic in nature as per patient DC pantoprazole and start on omeprazole Will follow up clinically in 3 month Hubert consider repeating EGD to asses for healing 06/19/2022 Will schedule her for EGD on the next appointment 08/22/2022 Will move forward with EGD to asses for healing of the PUD Continue on PPi bid and sucralfate. Problem CHANGE IN BOWEL HABIT (R19.8) Active confirmed Change in bowel habit (85493297) 12/16/2021 She will need a colonoscopy in the near future. She recently had a back Sx. Will wait several weeks for her to recuperate from this prior to scheduling for the colonoscopy Problem DYSPEPSIA (K30) Active confirmed Dyspepsia (520659869) 12/16/2021 Will increase PPI to bid. Results of recent CAT scan and ER visit revise and discuss with patient 03/03/2022 Continue on PPi bid Will add sucralfate qid Will do EGD to asses for PUD gastritis 03/22/2022 Will add H2 blockers Continue on sucralfate tid as well as PPi Will DC pantoprazole and start on omeprazole 06/19/2022 Continue on current anti relfux protocol. She seems to be improving slowly Will follow up clinically 08/22/2022 Symptoms resolve. Continue on PPi bid and sucralfate She has had to use H2 blockers sparingly Problem MILD CHRONIC GASTRITIS (K29.50) Active confirmed Atrophic gastritis (94313537) PLAN OF TREATMENT Pending Test Test Name Order Date *Upper GI Endoscopy/EDG 08/22/2022 Future Test Test Name Order Date ESOPHAGUS ENDOSCOPY 03/03/2022 Insurance Providers Payer Name Payer Address Payer Phone Subscriber Number Group Number Insured Name Patient Relationship to Insured Coverage Start Date Coverage End Date Medicare [address] [address] [place] [address] [phone] [id number] Shayla Sumner Self - patient is the insured [employer] [address] [place] [address] [phone] [id number] Shayla Sumner Self - patient is the insured MEDICAL (GENERAL) HISTORY Medical History History ICD Code Asthma Nephrolithiasis Rheumatoid Arthritis Surgical History Surgery Date(Month/Year) Back Sx CT scan abd/pelvis: 2 CONCLUSION: 1. No acute intra-abdominal findings 2. No bowel obstruction, perforation or intra-abdominal inflammatory change 3. Bilateral 3 mm nonobstructing renal calculi Gastric bypass Lap band Lap band removal Tubal ligation CT scan: Gastric bypass neph rolithiasis no acute abnormalities Fluid-filled loops of large and small bowel without wall thickening or obstruction. changes in the cervical spine 12/12/2021 Gastric bypass Colonoscopy:Diverticuulosis colon polyp-TA colo call back3 years random colon biopsies negative 09/16/2019 Back Sx egd:gastic by pass gastritis duodenitis irregular z line gastric ulcer 03/15/2022
--- OUTSIDE RECORDS SUMMARY | 2024-05-14 13:42 | XMS_ITS | Data Portability ---
Author Organization [facility] , [employer] Address [address] [place] [address] Care Team Providers Care Group Burner Machine Name Role Phone CALEB ROSARIO Neurosurgeon TONY GARCES Primary Care Provider Assessment Encounter Date Assessment Date Assessment LastModified by Organization Details LastModified Time 05/30/2022 05/30/2022 The patient is a very pleasant 47-year-old female with a history of chronic right shoulder pain and intermittent arm pain. MRI lumbar spine with and without contrast 09/27/2020? p ostop changes at L4-L5. No canal or foraminal narrowing. Edema throughout in addition to a thin fluid collection extending from L4 and L5 interspinous soft tissues and superficially extending into the subcutaneous soft tissues. May represent a postoperative seroma, however infectious process cannot be excluded confidently. No well-circumscribe d measurable abscess. L3-L4 mild concentric disc bulge coupled with ligamentous hypertrophy resulting in mild canal and bilateral foraminal narrowing. At L5-S1 mild concentric disc bulge with mild facet arthropathy and ligamentous hypertrophy resulting in mild bilateral foraminal narrowing without canal stenosis. CT abdomen and pelvis with contrast 08/15/2021? n o acute intra-abdominal findings. No bowel obstruction, perforation or inflammatory change. Bilateral 3 mm nonobstructing renal calculi. X-ray lumbosacral spine 01/12/2022? p ostop changes with no acute findings. Dorsal right fusion from L2-S1 and iliac bones. X-ray cervical spine 09/08/2021? s tatus post anterior fusion C3-C7. As a result of surgery cervical vertebra well aligned. X-ray cervical spine 08/10/2021? f ixation hardware from C3-C7 unchanged in appearance. X-ray cervical spine 05/16/2021? r evision of posterior fusion and discectomy, now including C3-C4 with good overall anatomic alignment. [email or web address] Not available 05/30/2022 16:30:13 06/27/2022 06/27/2022 The patient is a very pleasant 47-year-old female with a history of chronic right shoulder pain and intermittent arm pain. MRI lumbar spine with and without contrast 09/27/2020? p ostop changes at L4-L5. No canal or foraminal narrowing. Edema throughout in addition to a thin fluid collection extending from L4 and L5 interspinous soft tissues and superficially extending into the subcutaneous soft tissues. May represent a postoperative seroma, however infectious process cannot be excluded confidently. No well-circumscribe d measurable abscess. L3-L4 mild concentric disc bulge coupled with ligamentous hypertrophy resulting in mild canal and bilateral foraminal narrowing. At L5-S1 mild concentric disc bulge with mild facet arthropathy and ligamentous hypertrophy resulting in mild bilateral foraminal narrowing without canal stenosis. CT abdomen and pelvis with contrast 08/15/2021? n o acute intra-abdominal findings. No bowel obstruction, perforation or inflammatory change. Bilateral 3 mm nonobstructing renal calculi. X-ray lumbosacral spine 01/12/2022? p ostop changes with no acute findings. Dorsal right fusion from L2-S1 and iliac bones. X-ray cervical spine 09/08/2021? s tatus post anterior fusion C3-C7. As a result of surgery cervical vertebra well aligned. X-ray cervical spine 08/10/2021? f ixation hardware from C3-C7 unchanged in appearance. X-ray cervical spine 05/16/2021? r evision of posterior fusion and discectomy, now including C3-C4 with good overall anatomic alignment. MRI right shoulder joint without contrast 06/23/2022? c uff tendinopathy and peritendinitis. Interstitial and articular surface partial-thickness tearing involves the distal 1.5 cm of supraspinatus. Region of tearing measures 1.5 x 1 cm and occupies 25% of the depth. No labral tear or biceps tear. No fracture, AVN or mass. Prominent red marrow is a variant. This can be seen with smoking, obesity and anemias. Patient is aware to address with PCP. [email or web address] Not available 06/27/2022 08:45:01 07/14/2022 07/14/2022 The patient is a very pleasant 47-year-old female with a history of chronic right shoulder pain and intermittent arm pain. MRI lumbar spine with and without contrast 09/27/2020? p ostop changes at L4-L5. No canal or foraminal narrowing. Edema throughout in addition to a thin fluid collection extending from L4 and L5 interspinous soft tissues and superficially extending into the subcutaneous soft tissues. May represent a postoperative seroma, however infectious process cannot be excluded confidently. No well-circumscribe d measurable abscess. L3-L4 mild concentric disc bulge coupled with ligamentous hypertrophy resulting in mild canal and bilateral foraminal narrowing. At L5-S1 mild concentric disc bulge with mild facet arthropathy and ligamentous hypertrophy resulting in mild bilateral foraminal narrowing without canal stenosis. CT abdomen and pelvis with contrast 08/15/2021? n o acute intra-abdominal findings. No bowel obstruction, perforation or inflammatory change. Bilateral 3 mm nonobstructing renal calculi. X-ray lumbosacral spine 01/12/2022? p ostop changes with no acute findings. Dorsal right fusion from L2-S1 and iliac bones. X-ray cervical spine 09/08/2021? s tatus post anterior fusion C3-C7. As a result of surgery cervical vertebra well aligned. X-ray cervical spine 08/10/2021? f ixation hardware from C3-C7 unchanged in appearance. X-ray cervical spine 05/16/2021? r evision of posterior fusion and discectomy, now including C3-C4 with good overall anatomic alignment. MRI right shoulder joint without contrast 06/23/2022? c uff tendinopathy and peritendinitis. Interstitial and articular surface partial-thickness tearing involves the distal 1.5 cm of supraspinatus. Region of tearing measures 1.5 x 1 cm and occupies 25% of the depth. No labral tear or biceps tear. No fracture, AVN or mass. Prominent red marrow is a variant. This can be seen with smoking, obesity and anemias. Patient is aware to address with PCP. MRI cervical spine w/wo contrast 07/08/22 - status post anterior fusion from C3-C7 with no extrinsic compression of the thecal sac at these levels. Cervical spondylosis without evidence of cervical disc herniation or cervical spinal stenosis or cervical cord compression. Normal cervical cord and craniocervical junction. MRI lumbar spine w/wo contrast 07/08/22 - interval surgical revision now with bilateral pedicle screws at L2, L3, L4, L5 and S1 and interbody fusions from L4-S1. There are shallow broad based disc bulges and facet hypertrophy at L3-4, L4-5 and L5-S1 levels with abutment of bilateral exiting L3, L4 and L5 nerves. [email or web address] Not available 07/16/2022 16:47:43 Plan of Treatment Reminders Order Date Submit Date Provider Last Modified By Organization Details Last Modified Time Details Appointments None recorded. Lab None recorded. Referral None recorded. Procedures None recorded. Surgeries None recorded. Imaging MRI, shoulder, w/o contrast 2022 023 [place] [facility], [address], [place], [address], 3 16:01:13 MRI, lumbar spine, w/wo contrast 2022 023 [place] [facility], [address], [place], [address], 3 13:53:56 MRI, cervical spine, w/wo contrast 2022 023 [email or web address] [facility], [address] , [address], [place], [address], 3 11:00:47 Medication Orders duloxetin e 20 mg capsule,d elayed release 2022 023 [email or web address] [facility] #[id number], [address], [id number], 3 10:09:51 duloxetin e 30 mg capsule,d elayed release 2022 023 [facility] #[id number], [address] [place], [place], [id number], 3 17:23:43 duloxetin e 30 mg capsule,d elayed release 2022 023 [place] [email or web address], [address] [place], [address], 3 10:11:03 compounde d medicatio n 2022 023 [place] [facility], [address] [place] [address], [address], 3 10:22:32 Patient TargetsNo targets recorded. Patient InstructionsNo instructions recorded. Reason for Referral None Reported. Results Created Date Observation Date Name Description Value Unit Range Abnormal Flag Note LastModifiedBy Organization Detail LastModifiedTime 05/10/1909/24/2020 CT, abdom en + pelvi s, w/o contr ast No observ ation record ed. [email or web address] [facility] [place] [address] [place], [address], 05/10/2022 13:23:18 05/11/19 23 01/12/2022 XR, lumbo sacra l spine , 2 or 3 view No observ ation record ed. [email or web address] [facility] (Admin) [address], [place], [address], 05/12/2022 09:57:39 06/03/1901/26/2022 MRI, cervi robel spine , w/o contr ast No observ ation record ed. [email or web address] [facility] - Medical Records [address], [place], [address], 06/02/2022 12:03:31 06/03/19 23 09/02/2021 MRI, cervi robel spine , w/o contr ast No observ ation record ed. [email or web address] [facility] - Medical Records [address], [place], [address], 06/02/2022 12:04:12 06/03/19 23 09/03/2021 MRI, thora cic spine , w/o contr ast No observ ation record ed. [email or web address] [facility] - Medical Records [address], [place], [address], 06/02/2022 12:05:00 06/03/19 23 06/05/2021 MRI, lumba r spine , w/o contr ast No observ ation record ed. [email or web address] [facility] - Medical Records [address], [place], [address], 06/02/2022 12:05:27 06/25/19 23 06/24/2022 MRI, shoul patrick, w/o contr ast null null [place] [id number] Patien t Name: SHAYLA TURCIOS 48 Exam Date: 2022 Patien t : 1974 Referr ing Physic benito: Alfredo becerra MD HISTOR Y: Right should er pain TECHNI ROBEL FACTOR S: Long- and short- axis fat- and water- weight ed images were perfor med. COMPAR RONALD: None. FINDIN GS: Long head biceps is intact . No fractu re. No mass. Cuff tendin opathy and perite ndinit is. Inters titial and articu lar surfac e partia l-thic kness tearin g distal supras pinatu s involv es the distal 1.5 cm. Region tearin g measur es approx imatel y 1.5 x 1 cm occupi es up to 25% of the depth. No fractu re. No mass. Promin ent red marrow within the annette l diamet aphysi s, glenoi d, clavic le and acromi on. No mass or fractu re. No AVN. No muscle strain . No muscle atroph y. No labral tear. CONCLU HEIDI: 1. Cuff tendin opathy and perite ndinit is. Inters titial and articu lar surfac e partia l-thic kness tearin g involv es the distal 1.5 cm of the supras pinatu s. Region of tearin g measur es 1.5 x 1 cm and occupi es up to 25% of the depth. 2. No labral tear or biceps tear. 3. No fractu re, AVN or mass. Promin ent red marrow as a varian t. This can be seen with smokin g, obesit y, and anemia s. Thank you for the opport unity to provid e your interp retati on. Mihir Greene MD A: 2022 4:01 PM [email or web address] [facility] [address], [place], [address], 06/27/2022 14:15:03 07/09/19 23 07/08/2022 MR cervi robel spine w/wo contr ast null null Momence , [facility] a [id number] Patien t Name: SHAYLA TURCIOS 10 Exam Date: 2022 Patien t : 1974 Referr ing Physic benito: Alfredo becerra MD HISTOR Y: Neck pain TECHNI ROBEL FACTOR S: Long- and short- axis fat- and water- weight ed images were obtain ed before and after contra st admini strati on. Contra st Type: Dotare m 10mL Vial [facility] #[id number] Amt: 8 COMPAR RONALD: None. FINDIN GS: Right mastoi d effusi on. C2-3 level shows degene rative disc diseas e withou t focal disc hernia tion. The neural forami na patent . C3-4, C4-5, C5-6 and C6-7 levels show prior anteri or fusion . No extrin sic compre ssion of thecal sac. The neural forami na patent . C7-T1, T1-2 and T2-3 levels show no eviden ce of disc hernia tion or spinal stenos is. The neural forami na patent . Cervic al cord and cranio cervic al juncti on are normal . Parave rtebra l soft tissue s are normal No fractu re disloc ation identi fied. CONCLU HEIDI: 1. Status post anteri or fusion at the C3-4, C4-5, C5-6 and C6-7 levels with no extrin sic compre ssion of thecal sac at these levels . 2. Cervic al spondy losis withou t eviden ce of cervic al disc hernia tion or cervic al spinal stenos is or cervic al cord compre ssion. 3. Normal cervic al cord and cranio cervic al juncti on. Thank you for the opport unity to provid e your interp retati on. Harmony smith MD A: GD 2022 5:27 PM [email or web address] [facility] [address], [place], [address], 07/14/2022 12:07:32 07/12/19 23 07/11/2022 MRI, lumba r spine , w/wo contr ast null null [place] [id number] Patien t Name: SHAYLA TURCIOS 19 Exam Date: 2022 Patien t : 1974 Referr ing Physic benito: Alfredo becerra MD HISTOR Y: Lumbar pain over the last 2 years with a histor y of 3 prior surger ies. TECHNI ROBEL FACTOR S: Long- and short- axis fat- and water- weight ed images were obtain ed before and after contra st admini strati on. Contra st Type: Dotare m 10mL Vial [facility] #[id number] Amt: 0.8. COMPAR RONALD: Direct compar ronald is made with the most recent radiog raphs of the lumbar spine from 2020 as well as a prior MRI of the lumbar spine from 2020. FINDIN GS: There has been interv al surgic al revisi on now with museum exhibit designer ior hardwa re includ ing bilate ral pedicl es at L2, L3, L4, L5 and S1 with interb savanna fusion s at the L3-4, L4-5, and L5-S1 levels . The verteb ral body height s are well mainta ined withou t domina nt anteri or wedgin g or compre ssion. Conus medull ceci is normal in appear ance termin ates behind the L1 level. T11-12 : Retrol isthes is, shallo w broad- based disc bulge withou t nerve root compre ssion. T12-L1 , L1-2, L2-3: No disc protru heidi or hernia tion is identi fied. L3-4, L4-5: Retrol isthes is, shallo w broad- based disc bulge and facet hypert rophy with abutme nt of bilate ral exitin g L3 and L4 nerves . L5-S1: Arnaud listhe sis, shallo w broad- based disc bulge and facet hypert rophy with abutme nt of bilate ral exitin g L5 nerves . CONCLU HEIDI: Interv al surgic al revisi on now with bilate ral pedicl e screws at L2, L3, L4, L5, and S1 and interb savanna fusion s at the L3-4, L4-5, and L5-S1 levels . There are shallo w broad- based disc bulges and facet hypert rophy at the L3-4, L4-5, and L5-S1 levels with abutme nt of bilate ral exitin g L3, L4, and L5 nerves . Thank you for the opport unity to provid e your interp retati on. Varun rawls MD A: ZITA/love 2022 1:53 PM T: LOVE 2022 12:55 PM [email or web address] [facility] [address], [place], [address], 07/14/2022 12:08:23 Result Notes None recorded. Procedures Surgical History Date Name Laterality Status Provider Name and Address Organization Details Recorded Time 11/01/19 22 lumbar spinal fusion completed Yuridia Munoz [facility] 05/23/2022 11:37:23 04/13/19 22 primary anterior decompression of cervical spinal cord and fusion completed Yuridia Munoz [place] - [facility] 05/23/2022 11:36:44 04/02/19 21 primary posterior interbody fusion of joint of lumbar spine completed Yuridia Munoz [facility] 05/23/2022 11:37:33 04/02/19 20 primary anterior decompression of cervical spinal cord and fusion completed Yuridia Munoz [facility] 05/23/2022 11:37:09 04/02/19 20 hemilaminectomy completed Yuridiahenrietta Munoz [facility] 05/23/2022 11:37:54 ligation of fallopian tube completed Yuridia Munoz [facility] 05/23/2022 11:38:01 Imaging Results Imaging Date Name Status LastModified by Organiz ation Details LastModified Time 09/24/2020 CT, abdomen + pelvis, w/o contrast completed [email or web address] [facility] [address] [place], [address], 05/10/2022 13:23:18 01/12/2022 XR, lumbosacral spine, 2 or 3 view completed [email or web address] [facility] (Admin) [address] [place] [address], [address], 05/12/2022 09:57:39 01/26/2022 MRI, cervical spine, w/o contrast completed [email or web address] [facility] - Medical Records [facility] [address] [place] [address], [address], 06/02/2022 12:03:31 09/02/2021 MRI, cervical spine, w/o contrast completed [email or web address] [facility] - Medical Records [facility] [address] [place] [address], [address], 06/02/2022 12:04:12 09/03/2021 MRI, thoracic spine, w/o contrast completed [email or web address] [facility] - Medical Records [facility] [address], [place], [address], 06/02/2022 12:05:00 06/05/2021 MRI, lumbar spine, w/o contrast completed [email or web address] [facility] - Medical Records [address], [place], [address], 06/02/2022 12:05:27 06/24/2022 MRI, shoulder, w/o contrast completed [email or web address] [facility] [address], [place], [address], 06/27/2022 14:15:03 07/08/2022 MR cervical spine w/wo contrast completed [email or web address] [facility] [address], [place], [address], 07/14/2022 12:07:32 07/11/2022 MRI, lumbar spine, w/wo contrast completed [email or web address] [facility] [address], [place], [address], 07/14/2022 12:08:23 Procedure Notes None recorded. Medical Equipment None Reported. Allergies Allergen ID Allergen Name Allergen Category Reaction Reaction Severity Criticality Documentation Date Start Date Code Code System Note Provider Name and Address Organization Details Recorded Time 7235 Product containin g penicilli n and antibioti c (product) medicatio n rash Not available Not available 05/23/2022 [id number] [place] [facility] 3 11:34:55 Medications Name Sig Start Date Stop Date Status Note LastModified by Organization Details LastModified Time compounded medication Apply 1-2gm to affected areas BID 2022 active Not Available Not Available Not Avai lable Carafate 1 gram tablet Take 1 tablet 6 times a day by oral route. active Not Available Not Available No t Available famotidine 40 mg tablet Take 1 tablet every day by oral route. active Not Available Not Available No t Available omeprazole 20 mg capsule,del ayed release Take 1 capsule every day by oral route. active Not Available Not Available No t Available methylpredn isolone 4 mg tablets in a dose pack FOLLOW PACKAGE DIRECTION S 05/30 completed Not Available Not Available Not Available cyclobenzap rine 5 mg tablet TAKE 1 TABLET BY MOUTH THREE TIMES DAILY active Not Available Not Available No t Available duloxetine 20 mg capsule,del ayed release TAKE 1 CAPSULE BY MOUTH ONCE DAILY FOR 2 WEEKS, THEN TAKE 1 CAPSULE TWICE DAILY 07/14 completed Not Available Not Available Not Available duloxetine 30 mg capsule,del ayed release TAKE 1 CAPSULE BY MOUTH TWICE DAILY active Not Available Not Available No t Available Simponi 50 mg/0.5 mL subcutaneou s pen injector Inject 0.5 mL every month by subcutane ous route. active Not Available Not Available No t Available Linzess 145 mcg capsule Take 1 capsule every day by oral route. active Not Available Not Available No t Available Vitals Date Recorded Respiratory rate Body temperature Body height Body mass index (BMI) Body weight Oxygen saturation Oxygen saturation in Arterial blood by Pulse oximetry Heart rate Systolic blood pressure Diastolic blood pressure Provider Name and Address Organization Details Last Updated DateTime 3 16 /min 97.7 [degF] 160.02 cm 19 kg/m2 81302.3 8 g 99 % 99 % 80 /min 100 mm[Hg] 65 mm[Hg] Tish Muir [place] - [facility] 3 07:44:33 Date Recorded Body height Body mass index (BMI) Body weight Heart rate Respiratory rate Systolic blood pressure Diastolic blood pressure Provider Name and Address Organization Details Last Updated DateTime 3 160.02 cm 19 kg/m2 19652.3 8 g 105 /min 16 /min 130 mm[Hg] 82 mm[Hg] Catalina Breyfogle [place] - [facility] 3 08:06:35 Date Recorded Body height Body mass index (BMI) Body weight Provider Name and Address Organization Details Last Updated DateTime 07/14/2022 160.02 cm 19 kg/m2 73929.38 g Catalina Breyfogle [place] - [facility] 07/14/2022 09:55:00 Social History Question Answer Notes LastModified by Organizat ion Details LastModified Time Tobacco Smoking Status Current Some Day Smoker DEV Carnes [facility] 05/30/2022 07:53:56 Do You Have An Advance Directive? No [email or web address] Information not available 05/30/2022 What Is Your Level Of Alcohol Consumption? Moderate [email or web address] Information not available 05/23/2022 Are You Blind Or Do You Have Difficulty Seeing? Yes [email or web address] Information not available 05/30/2022 What Is Your Level Of Caffeine Consumption? Heavy [email or web address] Information not available 05/30/2022 In The 14 Days Before Symptom Onset, Have You Had Close Contact With A Laboratory-confir med COVID-19 While That Case Was Ill? No [email or web address] Information not available 05/30/2022 In The 14 Days Before Symptom Onset, Have You Had Close Contact With A Person Who Is Under Investigation For COVID-19 While That Person Was Ill? No [email or web address] Information not available 05/30/2022 Have You Been To An Area Known To Be High Risk For COVID-19? No [email or web address] Information not available 05/30/2022 Are You Currently Employed? No Retired [email or web address] Information not available 05/23/2022 Are You Deaf Or Do You Have Serious Difficulty Hearing? No Information not available 05/30/2022 What Type Of Diet Are You Following? REGULAR [email or web address] Information not available 05/30/2022 Have You Processed Blood Or Body Fluids From An Ebola Virus Disease Patient Without Appropriate PPE? No [email or web address] Information not available 05/30/2022 Do You Reside In Or Have You Traveled To An Area Where Ebola Virus Transmission Is Active? No [email or web address] Information not available 05/30/2022 Are There Any Guns Present In Your Home? No [email or web address] Information not available 05/30/2022 Which Of Your Hands Is Dominant? Right Information not available 05/30/2022 What Was The Date Of Your Most Recent Tobacco Screening? 05/30/2022 [email or web address] Information not available 05/30/2022 Do You Use Your Seat Belt Or Car Seat Routinely? Yes [email or web address] Information not available 05/30/2022 Do You Have Smoke And Carbon Monoxide Detectors In Your Home? Yes [email or web address] Information not available 05/30/2022 At What Age Did You Start Smoking Tobacco? 38 [email or web address] Information not available 05/30/2022 How Much Tobacco Do You Smoke? No [email or web address] Information not available 05/30/2022 Do You Feel Stressed (tense, Restless, Nervous, Or Anxious, Or Unable To Sleep At Night)? [id number] [email or web address] Information not available 05/30/2022 Do You Use Any Illicit Or Recreational Drugs? No [email or web address] Information not available 05/23/2022 Do You Use Sunscreen Routinely? No [email or web address] Information not available 05/30/2022 Has Tobacco Cessation Counseling Been Provided? Yes [email or web address] Information not available 05/30/2022 On What Date Was Tobacco Cessation Counseling Provided? 05/30/2022 [email or web address] Information not available 05/30/2022 How Many Years Have You Smoked Tobacco? 8 [email or web address] Information not available 05/30/2022 Do You Or Have You Ever Used Any Other Forms Of Tobacco Or Nicotine? No [email or web address] Information not available 05/30/2022 Sex: Unknown Functional Status Question Answer Note LastModified by Organizat ion Details LastModified Time Do you have difficulty walking or climbing stairs? Yes [email or web address] Information not available 05/30/2022 Are you able to walk? YESWOREST [email or web address] Information not available 05/30/2022 Do you have difficulty doing errands alone? Yes [email or web address] Information not available 05/30/2022 Do you have difficulty dressing or bathing? Yes [email or web address] Information not available 05/30/2022 What is your exercise level? Occasional [email or web address] Information not available 05/30/2022 Mental Status Question Answer Note LastModified by Organization D etails LastModified Time Do you have difficulty concentrating, remembering or making decisions? No [email or web address] Information no t available 05/30/2022 Family History Relationship Description Onset Age of this Age Resolved Age Notes LastModified by Organization Details LastModified Time Mother Hypertensive disorder [email or web address] Not available 11:39:30 Unspecified Relation Diabetes mellitus [email or web address] Not available 11:39:27 Medical History Condition Response Coronary Artery Disease N Gout N Hernia N Head Trauma/Injury N Thyroid Problems Y Depression Y COPD N Anemia N Heart Attack (AK) N Ulcers N Diabetes N Anxiety Disorder Y Bleeding Disorder N Arthritis Y Tuberculosis N AIDS/HIV N Acid Reflux (GERD) Y Cancer N Stroke N Asthma Y Substance Abuse N Back Injury N High Cholesterol N Hepatitis N Liver Disease N Heart Disease N Headaches N Fibromyalgia N Hypertension N Osteoporosis N Kidney Disease Y Gynecological HistoryNo gynecological history recorded. Obstetrics History GPAL:G 0 P 0 0 0 0 Past Encounters Encounter ID Performer Location Encounter Start Date Encounter Closed Date Diagnosis/Indication Diagnosis SNOMED-CT Code Diagnosis ICD10 Code Diagnosis Note [id number] Alfredo Lopez MD Main Office [address] [facility] [address] [place] [address] 05/30/2022 07:30:35 05/30/2022 08:17:45 Pain of right shoulder joint [id number] M25.511 MRI Right Shoulder without contrast ordered. Patient has a history of right shoulder pathology. No recent imaging work-up of her right shoulder pain complaints . She has no limited range of motion of the right shoulder. Cervical radiculopathy 85521606 M54.12 Recommend duloxetine 20 mg p.o. daily. If well-kennedy ated may uptitrate to twice daily after 2 weeks. Patient notes recent MRI of the cervical spine was performed. Unclear if this was performed with and without contrast. Medical record request for MRI. If imaging was performed without contrast, would consider scan with and without contrast given her surgical history. The patient was counseled on the alarm signs that should prompt escalation of care to the ER setting. Patient verbalized clear understand ing. I recommend the patient continue to optimize conservati ve measures, home exercise regimen, stretching , heat/ice, and physical therapy as tolerated. Lumbar radiculopathy 128 758640 M54.16 Patient notes her lumbar symptoms have alleviated . Unclear if there has been any subsequent work-up of her low back pain since her previous MRI of the lumbar spine with and without contrast with evidence of a fluid collection . Abscess could not be ruled out. Recommend MRI of the lumbar spine with and without contrast if not performed to rule out any residual fluid collection . Medical record request submitted for prior pain management records and imaging from [facility]. [id number] Alfredo Lopez MD Main Office [facility] [facility] [address] [place] [address] 06/27/2022 08:02:50 06/27/2022 08:15:37 Pain of right shoulder joint [id number] M25.511 MRI Right Shoulder without contrast Reviewed with patient. We discussed considerat ion for orthopedic consultati on verus injection therapies. Patient wishes to hold off and continue home PT. She accepts associated risks. Patient has a history of right shoulder pathology. No recent imaging work-up of her right shoulder pain complaints . She has no limited range of motion of the right shoulder. Cervical radiculopathy [id number] M54.12 Patient notes she has confirmed she has not previously had an MRI of the cervical spine with and without contrast. She has minimal to MRI of the cervical spine with and without contrast. Medical record requests have been submitted, patient notes no prior records available. Given importance of pursuing imaging and potential prior infectious concerns, recommend MRI of the cervical spine with and without contrast.. If imaging was performed without contrast, would consider scan with and without contrast given her surgical history. The patient was counseled on the alarm signs that should prompt escalation of care to the ER setting. Patient verbalized clear understand ing. I recommend the patient continue to optimize conservati ve measures, home exercise regimen, stretching , heat/ice, and physical therapy as tolerated. Lumbar radiculopathy 128 031263 M54.16 MRI Lumbar W & WO contrast ordered, Evaluate fluid collection , rule out infectious process. Increase to Duloxetine 30mg BID daily. Patient notes her lumbar symptoms have alleviated . Unclear if there has been any subsequent work-up of her low back pain since her previous MRI of the lumbar spine with and without contrast with evidence of a fluid collection . Abscess could not be ruled out. Recommend MRI of the lumbar spine with and without contrast if not performed to rule out any residual fluid collection . Medical record request submitted for prior pain management records and imaging from [facility]. [id number] Alfredo Lopez MD Main Office [address] [facility] [address] [place] [address] 07/14/2022 09:33:28 07/14/2022 10:20:16 Pain of right shoulder joint [id number] M25.511 MRI Right Shoulder without contrast Reviewed with patient. We discussed considerat ion for orthopedic consultati on versus injection therapies. Patient wishes to hold off and continue home PT. She accepts associated risks. Patient has a history of right shoulder pathology. No recent imaging work-up of her right shoulder pain complaints . She has no limited range of motion of the right shoulder. Cervical radiculopathy [id number] M54.12 Reviewed and discussed with patient her MRI cervical spine w/wo contrast in detail using 3D model. Medical record requests have been submitted, patient notes no prior records available. Given importance of pursuing imaging and potential prior infectious concerns, recommend MRI of the cervical spine with and without contrast.. The patient was counseled on the alarm signs that should prompt escalation of care to the ER setting. Patient verbalized clear understand ing. I recommend the patient continue to optimize conservati ve measures, home exercise regimen, stretching , heat/ice, and physical therapy as tolerated. Lumbar radiculopathy 128 255412 M54.16 Reviewed and discussed with patient her MRI lumbar spine w/wo contrast in detail using 3D model. Continue duloxetine 30mg BID daily. May consider future uptitratio n if needed. She will trial topical compound cream. May consider future addition of ketamine. Patient notes her lumbar symptoms have alleviated . Unclear if there has been any subsequent work-up of her low back pain since her previous MRI of the lumbar spine with and without contrast with evidence of a fluid collection . Abscess could not be ruled out. Recommend MRI of the lumbar spine with and without contrast if not performed to rule out any residual fluid collection . Medical record request submitted for prior pain management records and imaging from [facility]. Health Concerns Section Related Observation LastModified by Organization Detai ls LastModified Time None Recorded Concern Status LastModified by Organization Details LastModified Time None Recorded Advance Directives Directive N: Payers Encounter Date Sequence Insurance Name Policy Number Policy Ngo Covered Member ID Ngo Member ID Guarantor Name 05/30/2022 1 [place] Shaylashannan Turcios [id number] Shayla Turcios 05/30/2022 2 [employer] - [employer] (MEDICARE SUPPLEMENT) Cameron Boyer [id number] Shayla Turcios 06/27/2022 1 [place] Shaylashannan Turcios [id number] Shayla Turcios 06/27/2022 2 [employer] - FOR LIFE (MEDICARE SUPPLEMENT) Cameron Boyer [id number] Shayla Turcios 07/14/2022 1 [place] Shayla Turcios [id number] Shayla Turcios 07/14/2022 2 [employer] - FOR LIFE (MEDICARE SUPPLEMENT) Cameron Boyer [id number] Shayla Turcios Notes Date Note Type Note Provider Name and Address Organization Details Recorded Time 05/30/2022 text/html ShoulderReported bypatient.Hand Dominance:right Location:right Quality:throbbing; sharp; constant Severity:pain level 3/10; worst pain /10 Duration:date of onset: (October 2021 (after injection in lumbar, felt right arm go numb)) Timing:recurrent Context:cannot identify Alleviating Factors:heat; ice; rest; stretching Aggravating Factors:sitting; lying down; lifting Associated Symptoms:no weakness; no tingling; no swelling;numbness Previous Surgery:none Prior Imaging:x ray Previous Injections:none Previous PT:none Work Related:no Working:no 05/30/22The patient is a very pleasant 47-year-old female with a history of chronic right shoulder pain. She notes that she has a long history of chronic neck and low back pain. She notes that she was being treated with an epidural steroid injection when she noted sudden onset pain down her right arm. She notes that she underwent work-up, which ruled out any acute pathologies. She notes that she recently had an MRI of the cervical spine completed, but is not available for review at this time. Medical records will be requested. Patient notes she would like to hold off from injection therapies given her shoulder and arm pain beginning after previous pain management injection. She does note that the injection completely alleviated her back and leg symptoms. No neuro changes. She has reported feeling of subjective numbness, involving the right arm, but denies any berta sensorimotor deficits. No weakness, numbness, bowel or bladder changes or saddle anesthesia. Alfredo Lopez MD [address] [facility] [address], [place], [address], [facility] 05/30/2022 16:37:28 06/27/2022 text/html ShoulderReported bypatient.Hand Dominance:right Location:right Quality:throbbing; sharp; constant Severity:pain level 3/10; worst pain 6-7/10 Duration:date of onset: (October 2021 (after injection in lumbar, felt right arm go numb)) Timing:recurrent Context:cannot identify Alleviating Factors:heat; ice; rest; stretching Aggravating Factors:sitting; lying down; lifting Associated Symptoms:no weakness; no tingling; no swelling;numbness Previous Surgery:none Prior Imaging:x ray Previous Injections:none Previous PT:none Work Related:no Working:no 05/30/22The patient is a very pleasant 47-year-old female with a history of chronic right shoulder pain. She notes that she has a long history of chronic neck and low back pain. She notes that she was being treated with an epidural steroid injection when she noted sudden onset pain down her right arm. She notes that she underwent work-up, which ruled out any acute pathologies. She notes that she recently had an MRI of the cervical spine completed, but is not available for review at this time. Medical records will be requested. Patient notes she would like to hold off from injection therapies given her shoulder and arm pain beginning after previous pain management injection. She does note that the injection completely alleviated her back and leg symptoms. No neuro changes. She has reported feeling of subjective numbness, involving the right arm, but denies any berta sensorimotor deficits. No weakness, numbness, bowel or bladder changes or saddle anesthesia. 06/27/22Patient presents for follow-up visit. She notes duloxetine has been effective and well-tolerated. She would like to pursue up titration. She notes that her symptoms are improving and she does not feel the need for consideration for further injection therapies at this time. She notes that upon further investigation an MRI of the lumbar spine with and without contrast has not been previously performed. Alfredo Lopez MD [address] [facility] [address], [place], [address], [facility] 06/27/2022 08:45:14 07/14/2022 text/html ShoulderReported bypatient.Hand Dominance:right Location:right Quality:throbbing; sharp; constant Severity:pain level 4/10; worst pain 6-7/10 Duration:date of onset: (October 2021 (after injection in lumbar, felt right arm go numb)) Timing:recurrent Context:cannot identify Alleviating Factors:heat; ice; rest; stretching Aggravating Factors:sitting; lying down; lifting Associated Symptoms:no weakness; no tingling; no swelling;numbness Previous Surgery:none Prior Imaging:x ray Previous Injections:none Previous PT:none Work Related:no Working:no 05/30/22The patient is a very pleasant 47-year-old female with a history of chronic right shoulder pain. She notes that she has a long history of chronic neck and low back pain. She notes that she was being treated with an epidural steroid injection when she noted sudden onset pain down her right arm. She notes that she underwent work-up, which ruled out any acute pathologies. She notes that she recently had an MRI of the cervical spine completed, but is not available for review at this time. Medical records will be requested. Patient notes she would like to hold off from injection therapies given her shoulder and arm pain beginning after previous pain management injection. She does note that the injection completely alleviated her back and leg symptoms. No neuro changes. She has reported feeling of subjective numbness, involving the right arm, but denies any berta sensorimotor deficits. No weakness, numbness, bowel or bladder changes or saddle anesthesia. 06/27/22Patient presents for follow-up visit. She notes duloxetine has been effective and well-tolerated. She would like to pursue up titration. She notes that her symptoms are improving and she does not feel the need for consideration for further injection therapies at this time. She notes that upon further investigation an MRI of the lumbar spine with and without contrast has not been previously performed. 07/14/2022The patient presents in follow up for imaging review. She describes persistent neck pain with radiation of pain and numbness to her right UE, as well as pain across her low back with radiation of pain and numbness to her right LE. She recently increased duloxetine to 60mg QD which she says has been helpful and is well tolerated. Alfredo Lopez MD [address] [facility] [address], [place], [address], [facility] 07/17/2022 22:13:04 OBGyn Episode No OBEpisode recorded.
--- OUTSIDE RECORDS SUMMARY | 2024-05-14 13:42 | XMS_ITS | Encounter Summary ---
Author Organization [facility] Address [address] [place] [address] Care Team Providers Care Negative Developer Name Role Phone José Antonio Villaseñor MD Primary Care Provider [phone] Rodríguez Saxena MD Unavailable Eldon Fitch MD Unavailable Encounter Details Date Type Department Care Team (Late st Contact Info) Description 10/23/2022 Orders Only [facility] Family [facility] - [facility] [address] [facility] [place] [address] [place] [address] [place], [place] [id number] Social History Tobacco Use Types Packs/Day Years [...] on filedocumented in this encounter Care Teams Negative Developer Relationship Specialty Start Date [place] [address] [place], [place] [id number] PCP - General 07/19/21 Rodríguez Saxena MD [address] [facility] [address] [place] [address] Consulting Physician Neurology 01/09/23 Eldon Fitch MD [address] [facility] [address] [place] [address] Consulting Physician Neurosurgery 05/08/23 documented as of this encounter
--- OUTSIDE RECORDS SUMMARY | 2024-05-14 13:42 | XMS_ITS | Encounter Summary ---
Author Organization [facility] Sy[facility] m Address [address] [place] [address] Care Team Providers Care Anatomy And Physiology Instructor Name Role Phone José Antonio Villaseñor MD Primary Care Provider [phone] Rodríguez Saxena MD Unavailable Eldon Fitch MD Unavailable Reason for Visit * Reason Comments Flank Pain Encounter Details Date Type Department Care Team (Late st Contact Info) Description 04/30/2024 10:33 AM EST - 04/30/2024 2:27 PM EST Emergency [facility] Emergency [address] [place] [address] Rodríguez Pack, DO [address] [place] [address] Constipation, unspecified constipation type (Primary Dx); Iron deficiency anemia, unspecified iron deficiency anemia type Discharge Disposition: Home or Self Care Social History Tobacco Use Types Packs/Day Years [...] Sign Reading Time Taken Comments Blood Pressure 100/65 04/30/2024 1:32 PM EST Pulse 68 04/30/2024 1:32 PM EST Temperature 36.7 ??C (98.1 ??F) 04/30/2024 1 0:34 AM EST Respiratory Rate 16 04/30/2024 1:32 PM EST Oxygen Saturation 100% 04/30/2024 1:32 PM EST Inhaled Oxygen Concentration - - Weight 50.7 kg (111 lb 12.4 oz) 025 10:34 AM EST Height - - Body Mass Index 19.8 09/04/2023 12:22 AM EDT documented in this encounter Discharge Instructions * Discharge Instructions* Rodríguez Pack DO - 04/30/2024 1:25 PM EST Please call your primary care doctor's office and schedule an appointment to follow-up about today's ER visit. If you were prescribed medications, please get them filled at the pharmacy as soon as possible and begin taking as instructed. If you notice any worsening of your symptoms, or if you develop any new symptoms you are concerned about please return to the ER for further evaluation. Please take miralax as prescribed. If your symptoms worsen or change, please return to the ED for repeat evaluation. Please take your medications as prescribed and follow up with your primary care physician for reevaluation of your noted anemia in the ED. * Attachments The following attachments cannot be sent through Care Everywhere. * Constipation Adult [id number] (Citizen [place]) * Iron Deficiency Anemia Adult (Citizen [place]) documented in this encounter Medications at Time of Discharge albuterol 90 mcg/actuation inhaler every 4 (four) hours. 12/16/2019 cyclobenzaprine (Flexeril) 5 mg tablet Take 1 tablet (5 mg) by mouth in the morning, at noon, and at bedtime. diphenhydrAMINE 25 mg tablet Take 1 tablet (25 mg) by mouth every 6 (six) hours for 5 days. 20 tablet 09/04/2023 EPINEPHrine (EpiPen 2-Bethel) 0.3 mg/0.3 mL injection syringe Inject 0.3 mL (0.3 mg) as directed 1 (one) time if needed for anaphylaxis for up to 1 dose. Inject into upper leg. Call 911 after use. 1 each 09/04/2023 famotidine (Pepcid) 40 mg tablet Take 1 tablet (40 mg) by mouth if needed each day for heartburn. ferrous sulfate 325 (65 Fe) MG tablet Take 1 tablet (325 mg) by mouth 1 (one) time each day. 30 tablet 04/30/2024 5 fluticasone (Flovent HFA) 110 mcg/actuation inhaler every 12 (twelve) hours. golimumab (SIMPONI ARIA IV) 08/17/2022 levocetirizine (Xyzal) 5 mg tablet Take 1 tablet (5 mg) by mouth 1 (one) time each day. 11/30/2022 linaCLOtide (Linzess) 145 mcg capsule Take 1 capsule (145 mcg) by mouth before breakfast. Do not crush or chew. methylPREDNISolo ne (Medrol) 4 mg tablet TAKE 1 TABLET BY MOUTH EVERY DAY WITH FOOD NEEDED FOR PAIN 02/27/2024 polyethylene glycol (Glycolax) 17 gram packet Take 17 g by mouth 1 (one) time each day. 3 packet 04/30/2024 5 DULoxetine (Cymbalta) [address] capsule Take 1 capsule (30 mg) by mouth in the morning and at bedtime. Do not crush or chew. 180 capsule 05/08/2023 5 omeprazole (PriLOSEC) [address] capsule Take 1 capsule (20 mg) by mouth before breakfast. Do not crush or chew. 5 documented as of this encounter ED Notes * Sam Lang RN - 04/30/2024 10:35 AM EST Flank pains Left side 7/10 pain scale * Rodríguez Pack DO - 04/30/2024 10:01 AM EST Images from the original note were not included. Chief Complaint Patient presents with Flank Pain HPI History provided by: Patient medical technologist chief used: No Patient is a 49 year old female with a past medical history significant for depression, kidney stones, asthma, presents due to complaints of a 2 day history of left sided flank pain. Patient describes the pain as sharp and intermittent consistent with her prior kidney stones. Denies any associated n/v, urinary symptoms, fevers, or any other complaints at this time. Review of Systems Review of Systems Patient History Past Medical History: Diagnosis Date Arthritis Asthma Depression GERD (gastroesophageal reflux disease) Hypotension Insomnia Lumbar radiculopathy Postoperative wound infection Past Surgical History: Procedure Laterality Date ABDOMINAL SURGERY tummy tuck BACK SURGERY GASTRIC BYPASS NECK SURGERY TUBAL LIGATION Family History Problem Relation Name Age of Onset Hypertension Mother Diabetes type II Other Grandmother Social History Tobacco Use Smoking status: Former Types: Cigarettes Smokeless tobacco: Never Vaping Use Vaping status: Never Used I reviewed the HPI, ROS and PFSH documentation recorded by others in the medical record and supplemented my note as needed. Physical Exam ED Triage Vitals Temp Heart Rate Resp BP 04/30/24 1034 04/30/24 1034 04/30/24 1034 04/30/24 1034 36.7 ??C (98.1 ??F) 87 16 103/72 SpO2 Temp Source Heart Rate Source Patient Position 04/30/24 1034 04/30/24 1034 04/30/24 1034 -- 100 % Temporal Monitor BP Location FiO2 (%) -- -- Physical Exam Vitals and nursing note reviewed. Constitutional: General: She is not in acute distress. Appearance: Normal appearance. She is well-developed. HENT: Head: Normocephalic. Eyes: Extraocular Movements: Extraocular movements intact. Pupils: Pupils are equal, round, and reactive to light. Cardiovascular: Rate and Rhythm: Normal rate and regular rhythm. Pulmonary: Effort: Pulmonary effort is normal. No respiratory distress. Abdominal: Tenderness: There is no abdominal tenderness. There is no right CVA tenderness, left CVA tenderness, guarding or rebound. Musculoskeletal: Right lower leg: No edema. Left lower leg: No edema. Skin: General: Skin is warm and dry. Neurological: General: No focal deficit present. Mental Status: She is alert and oriented to person, place, and time. Mental status is at baseline. PROCEDURES Procedures ED Course & MDM Labs Results Procedure Component Value Units Date/Time Urinalysis with reflex to culture [[id number]] Collected: 04/30/24 1115 Lab Status: Final result Specimen: Urine, Clean Catch Updated: 04/30/24 1301 Narrative: The following orders were created for panel order Urinalysis with reflex to culture. Procedure Abnormality Status --------- ------ Urinalysis with reflex to...[[id number]] Final result Extra Urine Container[[id number]] Final result Please view results for these tests on the individual orders. Extra Urine Container [[id number]] Collected: 04/30/241114 Lab Status: Final result Specimen: Urine, Clean Catch Updated: 04/30/24 1301 Hepatic function panel [[id number]] (Normal) Collected: 04/30/241114 Lab Status: Final result Specimen: Blood, Venous Updated: 04/30/24 1140 Albumin 3.4 g/dL Total Bilirubin 0.70 mg/dL Bilirubin, Direct 0.16 mg/dL Alkaline Phosphatase 101 U/L AST 16 U/L ALT (SGPT) 16 U/L Total Protein 7.6 g/dL Basic metabolic panel [[id number]] Collected: 04/30/241114 Lab Status: Final result Specimen: Blood, Venous Updated: 04/30/24 1138 Sodium 138 mmol/L Potassium 3.5 mmol/L Chloride 105 mmol/L CO2 28 mmol/L BUN 9 mg/dL Creatinine 0.75 mg/dL Glucose 87 mg/dL Calcium 9.00 mg/dL Anion Gap 5 mmol/L eGFR >60.0 mL/min/1.73m*2 Lipase [[id number]] (Normal) Collected: 04/30/241114 Lab Status: Final result Specimen: Blood, Venous Updated: 04/30/24 1138 Lipase 25 U/L PT/PTT [[id number]] (Normal) Collected: 04/30/241114 Lab Status: Final result Specimen: Blood, Venous Updated: 04/30/24 1134 PTT 26.0 seconds INR 1.0 Protime 13.1 seconds CBC auto differential [[id number]] (Abnormal) Collected: 04/30/241114 Lab Status: Final result Specimen: Blood, Venous Updated: 04/30/24 1121 Auto WBC 7.1 10??3/uL RBC 4.35 10??6/uL Hemoglobin 9.1 g/dL Hematocrit 30.5 % MCV 70.1 fL MCH 20.9 pg MCHC 30 g/dL RDW 20.2 % Platelets 338 10??3/uL MPV 8.3 fL Neutrophils Relative 66.1 % Lymphocytes Relative 24.2 % Monocytes Relative 7.3 % Eosinophils Relative 1.3 % Basophils Relative 0.7 % Immature Granulocyte % 0.4 % Neutrophils Absolute 4.69 10??3/uL Lymphocytes Absolute 1.72 10??3/uL Monocytes Absolute 0.52 10??3/uL Eosinophils Absolute 0.09 10??3/uL Basophils Absolute 0.05 10??3/uL Immature Granulocyte Absolute 0.03 10??3/uL Urinalysis with reflex to culture [[id number]] Collected: 04/30/24 1115 Lab Status: Final result Specimen: Urine, Clean Catch Updated: 04/30/24 1120 Color, Urine Yellow Clarity, Urine Clear Specific Frederic, Urine 1.015 pH, Urine 6.0 pH Leukocytes Esterase Negative Nitrite, Urine Negative Protein, Urine Negative Glucose, Urine Negative Ketones, Urine Negative Urobilinogen, Urine 1.0 mg/dL Bilirubin, Urine Negative Blood, Urine Negative Imaging CT abdomen pelvis w IV contrast Final Result by Wicho Hurt MD (04/30 1314) HISTORY: F, 49 y/o . Left flank pain RADIATION DOSAGE (If Supplied By Facility):DLP = ( Radiation Dosage: 271.00 ) mGycm TECHNICAL FACTORS: Standard CT technique was utilized after contrast administration. Contrast Type: OMNIPAQUE 350 mg/mL [facility] [id number] Contrast Amt: 75.00 CC/mL COMPARISON: None 03/21/2022 FINDINGS: LIVER: Fatty infiltration. Portal vein is patent. No free fluid. No intrahepatic biliary ductal dilatation. GALLBLADDER/BILIARY: Status post cholecystectomy. No evidence of intra/extrahepatic biliary ductal dilatation. SPLEEN: Spleen is normal in size, contour, and attenuation. PANCREAS: Pancreas is normal in size, attenuation, and contour without pancreatic ductal dilatation. No evidence of acute/chronic pancreatitis. ADRENAL: No adrenal masses. RENAL: Kidneys are normal in size with renal cortex well maintained and anatomically. No evidence of nephrolithiasis. No evidence of hydronephrosis. No solid renal mass. Visualized renal veins are normal. Perinephric space is normal. GASTROINTESTINAL: No bowel obstruction, pneumoperitoneum, pneumatosis, or ascites. Moderate colonic stool burden without impaction/stercoral colitis. Status post gastric bypass. No free or loculated fluid collections within the abdomen or pelvis. RETROPERITONEUM: Abdominal aorta and arborizing branches are normal in course and caliber. No aneurysm. IVC is normal. PELVIS: Dilated veins bilateral adnexa representing pelvic venous engorgement syndrome. No inguinal, pelvic sidewall, mesenteric, retroperitoneal lymphadenopathy. URINARY BLADDER: No wall thickening. No stones. MUSCULOSKELETAL:Thoracolumbar spondylosis deformans. Status post lumbar fixation.. No focal lytic or blastic lesion. No acute fracture. PULMONARY: Limited evaluation of the lung bases. Heart is normal in size without pericardial effusion. CONCLUSION: 1. Moderate colonic stool burden without obstruction, perforation or stercoral colitis 2. Bilateral pelvic venous engorgement syndrome 3. No evidence of nephrolithiasis/hydronephrosis Thank you for the opportunity to provide your interpretation. Wicho Hurt MD A: JGabriel 04/30/2024 1:14 PM EST EKG ECG Results None Medications Medications morphine injection 4 mg (4 mg intravenous Given 04/30/24 1154) ondansetron (Zofran) injection 4 mg (4 mg intravenous Given 04/30/24 1154) iohexol (OMNIPaque) 350 mg iodine/mL injection 75 mL (75 mL intravenous Given 04/30/24 1302) Blood Orders None Medical Decision Making Scoring Tools I saw and evaluated this patient in the ED. I personally ordered and reviewed all aspects of the above Medical Course and Medical Decision Making (MDM) including (but not limited to) procedures, lab tests, radiology imaging, EKGs, medications, and scoring tools. Please see ED Course for further medical decision making. Patient is a 49 year old female who presents with complaints of left sided flank pain Ddx includes: kidney stone, acute cystitis, pyelo, SBO, gastroenteritis Pertinent labs/imaging reviewed below Given history and presentation will obtain Tylenol as well as a CT scan for evaluation. CT scan was concerning for constipation after Is noted. Resting comfortably on my repeat evaluation. Labs are concerning for hemoglobin of 9.1. Patient does have a history of anemia and was previouslyon iron supplementation both p.o. and IV. Patient denies any vaginal bleeding or melena or hematochezia. Hemodynamically stable. Restart patient's oral iron encourage patient follow-up with primary care physician for further outpatient management due to concerns for anemia that is likely iron deficiency given MCV of 70. Discussed return precautions with patient. She voiced understanding. All questions were answered. Disposition discharge. Consults Consult Orders None MIPS MIPS Last ED Vitals BP: 100/65 Temp: 98.1 F Pulse: 68 Resp: 16 SpO2: 100% ED Course as of 05/01/24 1624 SunApr 30, 2024 1131 Auto WBC: 7.1 [CB] 1131 Hemoglobin(!): 9.1 Denies any melena, hematochezia, or vaginal bleeding. [CB] 1131 Hematocrit(!): 30.5 [CB] 1131 Platelets: 338 [CB] 1142 Urinalysis with reflex to culture No signs of infection [CB] 1320 CT unremarkable. [CB] ED Course User Index [CB] Rodríguez Pack DO Diagnoses as of 05/01/24 1624 Constipation, unspecified constipation type Iron deficiency anemia, unspecified iron deficiency anemia type DISPOSITION DISCHARGE CONDITION Stable DISCHARGE INFORMATION ED Prescriptions Medication Sig Dispense Start Date End Date Auth. Provider polyethylene glycol (Glycolax) 17 gram packet Take 17 g by mouth 1 (one) time each day. 3 packet 04/30/2024 05/30/2024 Rodríguez Pack DO ferrous sulfate 325 (65 Fe) MG tablet Take 1 tablet (325 mg) by mouth 1 (one) time each day. 30 tablet 04/30/2024 05/30/2024 Rodríguez Pack DO FOLLOW- UP [facility] Emergency [address] [address] Go to As needed, If symptoms [place] [address] [address] Schedule an appointment as soon as possible for a visit in 1 day Re evaluation and hospital follow up Discharge Instructions Please call your primary care doctor's office and schedule an appointment to follow-up about today's ER visit. If you were prescribed medications, please get them filled at the pharmacy as soon as possible and begin taking as instructed. If you notice any worsening of your symptoms, or if you develop any new symptoms you are concerned about please return to the ER for further evaluation. Please take miralax as prescribed. If your symptoms worsen or change, please return to the ED for repeat evaluation. Please take your medications as prescribed and follow up with your primary care physician for reevaluation of your noted anemia in the ED. Rodríguez Pack DO 05/01/24 1624 documented in this encounter Plan of Treatment Not on file documented as of this encounter Procedures Procedure Name Priority Date/Time Associated Diagnosis Comments CT ABDOMEN PELVIS W IV CONTRAST STAT 04/30/2024 1:01 PM EST EXTRA UA CULTURE CONTAINER STAT 04/30/2024 11:15 AM EST URINALYSIS W/ REFLEX CULTURE PANEL WITH EXTRA URINE STAT 04/30/2024 11:15 AM EST URINALYSIS W/ REFLEX CULTURE STAT 04/30/2024 11:15 AM EST PROTIME & PTT STAT 04/30/2024 11:15 AM EST CBC WITH AUTO DIFFERENTIAL STAT 04/30/2024 11:15 AM EST LIPASE STAT 04/30/2024 11:15 AM EST HEPATIC FUNCTION PANEL STAT 04/30/2024 11:15 AM EST BASIC METABOLIC PANEL STAT 04/30/2024 11:15 AM EST documented in this encounter Results * CT abdomen pelvis w IV contrast (04/30/2024 1:01 PM EST) Anatomical Region Laterality Modality Body, Pelvis, Abdomen Computed T omography 04/30/2024 1:14 PM EST 04/30/2024 1:04 PM EST Narrative 04/30/2024 1:14 PM EST HISTORY: F, 49 y/o . Left flank pain RADIATION DOSAGE (If Supplied By Facility):DLP = ( Radiation Dosage: 271.00 ) mGycm TECHNICAL FACTORS: Standard CT technique was utilized after contrast administration. ??Contrast Type: OMNIPAQUE ??350 mg/mL [facility] [id number] ??Contrast Amt: 75.00 ??CC/mL COMPARISON: None 03/21/2022 FINDINGS: LIVER: Fatty infiltration. ??Portal vein is patent. ??No free fluid. ??No intrahepatic biliary ductal dilatation. GALLBLADDER/BILIARY: Status post cholecystectomy. ??No evidence of intra/extrahepatic biliary ductal dilatation. SPLEEN: Spleen is normal in size, contour, and attenuation. PANCREAS: Pancreas is normal in size, attenuation, and contour without pancreatic ductal dilatation. ??No evidence of acute/chronic pancreatitis. ADRENAL: No adrenal masses. RENAL: Kidneys are normal in size with renal cortex well maintained and anatomically. ??No evidence of nephrolithiasis. ??No evidence of hydronephrosis. ??No solid renal mass. ??Visualized renal veins are normal. ??Perinephric space is normal. GASTROINTESTINAL: No bowel obstruction, pneumoperitoneum, pneumatosis, or ascites. ??Moderate colonic stool burden without impaction/stercoral colitis. ??Status post gastric bypass. ??No free or loculated fluid collections within the abdomen or pelvis. RETROPERITONEUM: Abdominal aorta and arborizing branches are normal in course and caliber. ??No aneurysm. ??IVC is normal. PELVIS: Dilated veins bilateral adnexa representing pelvic venous engorgement syndrome. ??No inguinal, pelvic sidewall, mesenteric, retroperitoneal lymphadenopathy. URINARY BLADDER: No wall thickening. ??No stones. MUSCULOSKELETAL:Thoracolumbar spondylosis deformans. ??Status post lumbar fixation.. ??No focal lytic or blastic lesion. ??No acute fracture. PULMONARY: Limited evaluation of the lung bases. Heart is normal in size without pericardial effusion. CONCLUSION: 1. ??Moderate colonic stool burden without obstruction, perforation or stercoral colitis 2. ??Bilateral pelvic venous engorgement syndrome 3. ??No evidence of nephrolithiasis/hydronephrosis Thank you for the opportunity to provide your interpretation. Wicho ??MD Blu A: SANTANA 04/30/2024 1:14 PM EST Procedure Note Wicho Hurt MD - 04/30/2024 HISTORY: F, 49 y/o . Left flank pain RADIATION DOSAGE (If Supplied By Facility):DLP = ( Radiation Dosage:271.00 ) mGycm TECHNICAL FACTORS: Standard CT technique was utilized after contrastadministration. Contrast Type: OMNIPAQUE 350 mg/mL [facility] [id number] Amt: 75.00 CC/mL COMPARISON: None 03/21/2022 FINDINGS: LIVER: Fatty infiltration. Portal vein is patent. No freefluid. No intrahepatic biliary ductal dilatation. GALLBLADDER/BILIARY: Status post cholecystectomy. No evidence ofintra/extrahepatic biliary ductal dilatation. SPLEEN: Spleen is normal in size, contour, and attenuation. PANCREAS: Pancreas is normal in size, attenuation, and contour withoutpancreatic ductal dilatation. No evidence of acute/chronicpancreatitis. ADRENAL: No adrenal masses. RENAL: Kidneys are normal in size with renal cortex well maintained andanatomically. No evidence of nephrolithiasis. No evidence ofhydronephrosis. No solid renal mass. Visualized renal veins are normal.Perinephric space is normal. GASTROINTESTINAL: No bowel obstruction, pneumoperitoneum, pneumatosis, orascites. Moderate colonic stool burden without impaction/stercoralcolitis. Status post gastric bypass. No free or loculated fluidcollections within the abdomen or pelvis. RETROPERITONEUM: Abdominal aorta and arborizing branches are normal incourse and caliber. No aneurysm. IVC is normal. PELVIS: Dilated veins bilateral adnexa representing pelvic venousengorgement syndrome. No inguinal, pelvic sidewall, mesenteric,retroperitoneal lymphadenopathy. URINARY BLADDER: No wall thickening. No stones. MUSCULOSKELETAL:Thoracolumbar spondylosis deformans. Status post lumbarfixation.. No focal lytic or blastic lesion. No acute fracture. PULMONARY: Limited evaluation of the lung bases. Heart is normal in sizewithout pericardial effusion. CONCLUSION: 1. Moderate colonic stool burden without obstruction, perforation orstercoral colitis 2. Bilateral pelvic venous engorgement syndrome 3. No evidence of nephrolithiasis/hydronephrosis Thank you for the opportunity to provide your interpretation. Wicho Hurt MD A: SANTANA 04/30/2024 1:14 PM EST us Rodríguez Pack DO IMG CT PROCEDURES Final Re sult * Extra Urine Container (04/30/2024 11:15 AM EST) Urine Urine specimen obtained by clean catch procedure / Unknown Non-blood Collection / Unknown 04/30/2024 11:15 AM EST 04/30/2024 11:17 AM EST us Rodríguez Pack DO LAB URINE ORDERABLES Final Result [facility] [address] [place] [address], * Urinalysis with reflex to culture (04/30/2024 11:15 AM EST) Color, Urine Yellow Yellow LAB URINALYSIS - DIPSTICK METHOD 04/30/2024 11:20 AM EST [facility] Clarity, Urine Clear LAB URINALYSIS - DIPSTICK METHOD 04/30/2024 11:20 AM EST [facility] Specific Frederic, Urine 1.015 1.005 - 1.030 LAB URINALYSIS - DIPSTICK METHOD 04/30/2024 11:20 AM EST [facility] pH, Urine 6.0 5.0 - 8.0 pH LAB URINALYSIS - DIPSTICK METHOD 04/30/2024 11:20 AM EST [facility] Leukocytes Esterase Negative Negative LAB URINALYSIS - DIPSTICK METHOD 04/30/2024 11:20 AM EST [facility] Nitrite, Urine Negative Negative LAB URINALYSIS - DIPSTICK METHOD 04/30/2024 11:20 AM EST [facility] Protein, Urine Negative Negative LAB URINALYSIS - DIPSTICK METHOD 04/30/2024 11:20 AM EST [facility] Glucose, Urine Negative Negative LAB URINALYSIS - DIPSTICK METHOD 04/30/2024 11:20 AM EST [facility] Ketones, Urine Negative Negative LAB URINALYSIS - DIPSTICK METHOD 04/30/2024 11:20 AM EST [facility] Urobilinogen, Urine 1.0 0.2, 1.0 mg/dL LAB URINALYSIS - DIPSTICK METHOD 04/30/2024 11:20 AM EST [facility] Bilirubin, Urine Negative Negative LAB URINALYSIS - DIPSTICK METHOD 04/30/2024 11:20 AM EST [facility] Blood, Urine Negative LAB URINALYSIS - DIPSTICK METHOD 04/30/2024 11:20 AM [facility] Urine Urine specimen obtained by clean catch procedure / Unknown Non-blood Collection / Unknown 04/30/2024 11:15 AM EST 04/30/2024 11:17 AM EST [facility] URINE ORDERABLES Final Result Performing Organization Address [facility] Co de Phone Number [facility] [address] [place] [address], * Lipase (04/30/2024 11:15 AM EST) Lipase 25 13 - 75 U/L 04/30/2024 11:38 AM EST ED [facility] Blood Venous blood specimen / Unknown Venipuncture / Unknown 04/30/2024 11:15 AM EST 04/30/2024 11:17 AM EST [facility] BLOOD ORDERABLES Final Result Performing Organization Address [facility] Phone Number [facility] [address] [place] [address], * Hepatic function panel (04/30/2024 11:15 AM EST) Albumin 3.4 3.4 - 5 g/dL 04/30/2024 11:40 AM EST [facility] Total Bilirubin 0.70 0.20 - 1.00 mg/dL 04/30/2024 11:40 AM EST [facility] Bilirubin, Direct 0.16 0 - 0.2 mg/dL 04/30/2024 11:40 AM EST [facility] Alkaline Phosphatase 101 45 - 117 U/L 04/30/2024 11:40 AM EST [facility] AST 16 15 - 37 U/L 04/30/2024 11:40 AM EST [facility] ALT (SGPT) 16 13 - 61 U/L 04/30/2024 11:40 AM EST [facility] Total Protein 7.6 6.4 - 8.2 g/dL 04/30/2024 11:40 AM EST [facility] Blood Venous blood specimen / Unknown Venipuncture / Unknown 04/30/2024 11:15 AM EST 04/30/2024 11:17 AM EST us Rodríguez Pack DO LAB BLOOD ORDERABLES Final Result [facility] [address] [place] [address], [place] [phone] * Basic metabolic panel (04/30/2024 11:15 AM EST) Sodium 138 136 - 145 mmol/L 04/30/2024 11:38 AM EST [facility] Potassium 3.5 3.5 - 5.1 mmol/L 04/30/2024 11:38 AM EST [facility] Chloride 105 98 - 107 mmol/L 04/30/2024 11:38 AM EST ED [facility] CO2 28 21 - 32 mmol/L 04/30/2024 11:38 AM EST [facility] BUN 9 7 - 18 mg/dL 04/30/2024 11:38 AM EST [facility] Creatinine 0.75 0.60 - 1.30 mg/dL 04/30/2024 11:38 AM EST [facility] Glucose 87 70 - 99 mg/dL 04/30/2024 11:38 AM EST [facility] Calcium 9.00 8.50 - 10.10 mg/dL 04/30/2024 11:38 AM EST [facility] Anion Gap 5 5 - 15 mmol/L 04/30/2024 11:38 AM EST [facility] eGFR >60.0 mL/min/1.7 3m*2 04/30/2024 11:38 AM EST [facility] Comment: Result interpretation of the CKD-EPI equation for eGFR can be broken down into 6 categories/stages based on level of severity of CKD. ?? The severity of chronic kidney disease (CKD) is described by 6 stages, the most severe three are defined by the category value, and first three also depend on whether there is other evidence of kidney disease (e.g. proteinuria): Interpretation of GFR categories: G1*: Normal kidney function - GFR above 90 mL/min/1.73m2 and no proteinuria G2*: Mildly decreased -- GFR of 60 to 89 mL/min/1.73m2 with evidence of kidney damage G3a: Mildly to moderately decreased -- GFR of 45 to 59 mL/min/1.73m2 G3b: Moderately to severely decreased -- GFR of 30 to 44 mL/min/1.73m2 G4: Severely decreased -- GFR of 15 to 29 mL/min/1.73m2 G5: Kidney failure (dialysis or kidney transplant needed) - GFR less than 15 mL/min/1.73m2 *In the absence of evidence of kidney damage, neither G1 nor G2 fulfill criteria for CKD. The estimated GFR has not been validated for use in acute renal failure, , oedematous states, muscle wasting disorders, amputees and malnourished people. CKD-EPI eGFR calculation and interpretation from the [employer]. Note: eGFR results will not be calculated for patients <18 years old. Blood Venous blood specimen / Unknown Venipuncture / Unknown 04/30/2024 11:15 AM EST 04/30/2024 11:17 AM EST Rodríguez Pack DO LAB BLOOD ORDERABLES Final Result Performing Organization Address City/State/[facility] Co de Phone Number [facility] [id number] [facility] [place] [address], * PT/PTT (04/30/2024 11:15 AM EST) PTT 26.0 23.7 - 35.4 seconds 04/30/2024 11:34 AM EST ED [facility] INR 1.0 0.8 - 1.2 04/30/2024 11:34 AM EST ED [facility] Comment: International Normalized Ratio Reference Indications: ? 0.8 - 1.2 ? ....... ??Normal Non-Therapeutic 2.0 - 3.0 ? ....... ??Standard Therapeutic 3.0 - 4.3 ? ....... ??High Level Therapeutic Protime 13.1 11.5 - 14.6 seconds 04/30/2024 11:34 AM EST ED [facility] Blood Venous blood specimen / Unknown Venipuncture / Unknown 04/30/2024 11:15 AM EST 04/30/2024 11:17 AM EST Rodríguez Pack DO LAB BLOOD ORDERABLES Final Result [facility] [address] [place] [address], [place] [phone] * (ABNORMAL) CBC auto differential (04/30/2024 11:15 AM EST) Auto WBC 7.1 4.2 - 10.8 10? 3 /uL LAB HEMATOLOGY METHOD 04/30/2024 11:21 AM EST [facility] RBC 4.35 3.70 - 4.90 10? 6 /uL LAB HEMATOLOGY METHOD 04/30/2024 11:21 AM EST [facility] Hemoglobin 9.1(L) 12.0 - 16.0 g/dL LAB HEMATOLOGY METHOD 04/30/2024 11:21 AM EST [facility] Hematocrit 30.5(L) 37.0 - 47.0 % LAB HEMATOLOGY METHOD 04/30/2024 11:21 AM EST [facility] MCV 70.1(L) 80.0 - 100.0 fL LAB HEMATOLOGY METHOD 04/30/2024 11:21 AM EST [facility] MCH 20.9(L) 25.4 - 34.6 pg LAB HEMATOLOGY METHOD 04/30/2024 11:21 AM EST [facility] MCHC 30(L) 31 - 37 g/dL LAB HEMATOLOGY METHOD 04/30/2024 11:21 AM EST [facility] RDW 20.2(H) 11.5 - 14.5 % LAB HEMATOLOGY METHOD 04/30/2024 11:21 AM EST [facility] Platelets 338 130 - 450 10? 3 /uL LAB HEMATOLOGY METHOD 04/30/2024 11:21 AM EST [facility] MPV 8.3 7.0 - 14.0 fL LAB HEMATOLOGY METHOD 04/30/2024 11:21 AM EST [facility] Neutrophils Relative 66.1 41.0 - 77.0 % LAB HEMATOLOGY METHOD 04/30/2024 11:21 AM EST [facility] Lymphocytes Relative 24.2 24.0 - 44.0 % LAB HEMATOLOGY METHOD 04/30/2024 11:21 AM EST [facility] Monocytes Relative 7.3 0.0 - 15.0 % LAB HEMATOLOGY METHOD 04/30/2024 11:21 AM EST ED [facility] Eosinophils Relative 1.3 0.0 - 5.0 % LAB HEMATOLOGY METHOD 04/30/2024 11:21 AM EST [facility] Basophils Relative 0.7 0.0 - 3.0 % LAB HEMATOLOGY METHOD 04/30/2024 11:21 AM EST [facility] Immature Granulocyte % 0.4 0.0 - 0.4 % LAB HEMATOLOGY METHOD 04/30/2024 11:21 AM EST [facility] Neutrophils Absolute 4.69 1.80 - 7.00 10? 3 /uL LAB HEMATOLOGY METHOD 04/30/2024 11:21 AM EST ED [facility] Lymphocytes Absolute 1.72 1.00 - 4.80 10? 3 /uL LAB HEMATOLOGY METHOD 04/30/2024 11:21 AM EST [facility] Monocytes Absolute 0.52 Not Established 10? 3 /uL LAB HEMATOLOGY METHOD 04/30/2024 11:21 AM EST ED [facility] Eosinophils Absolute 0.09 0.05 - 0.35 10? 3 /uL LAB HEMATOLOGY METHOD 04/30/2024 11:21 AM EST ED [facility] Basophils Absolute 0.05 Not Established 10? 3 /uL LAB HEMATOLOGY METHOD 04/30/2024 11:21 AM EST ED [facility] Immature Granulocyte Absolute 0.03 Not Established 10? 3 /uL LAB HEMATOLOGY METHOD 04/30/2024 11:21 AM EST [facility] Blood Venous blood specimen / Unknown Venipuncture / Unknown 04/30/2024 11:15 AM EST 04/30/2024 11:17 AM EST us Rodríguez Pack DO LAB BLOOD ORDERABLES Final Result [facility] [address] [facility] [place] [address], documented in this encounter Visit Diagnoses Diagnosis Constipation, unspecified constipation type- Primary Iron deficiency anemia, unspecified iron deficiency anemia type documented in this encounter Administered Medications Inactive Administered Medications - up to 3 most recent administrations Medication Order MAR Action Action Date Dose Rate Site iohexol (OMNIPaque) 350 mg iodine/mL injection 75 mL 75 mL, intravenous, Once in imaging, Starting on Sun04/30/24 at 1302, For 1 dose Given 04/30/2024 1:02 PM EST 75 mL morphine injection 4 mg 4 mg, intravenous, Once, On Sun04/30/24 at 1120, For 1 dose Given 04/30/2024 11:54 AM EST 4 mg ondansetron (Zofran) injection 4 mg 4 mg, intravenous, Once, On Sun04/30/24 at 1120, For 1 dose Given 04/30/2024 11:54 AM EST 4 mg documented in this encounter Active and Recently Administered Medications Times are shown in EST. Scheduled Medication Order 04/28/2024 04/29/2024 04/30/2024 iohexol (OMNIPaque) 350 mg iodine/mL injection 75 mL (COMPLETED) 75 mL, intravenous, Once in imaging, Starting on Sun04/30/24 at 1302, For 1 dose 1302 (Given - Provid er: Arron Cedillo RT) morphine injection 4 mg (COMPLETED) 4 mg, intravenous, Once, On Sun04/30/24 at 1120, For 1 dose 1154 (Given - Provid er: Silvana Hernandez RN) ondansetron (Zofran) injection 4 mg (COMPLETED) 4 mg, intravenous, Once, On Sun04/30/24 at 1120, For 1 dose 1154 (Given - Provid er: Silvana Hernandez RN) documented in this encounter Care Teams Anatomy And Physiology Instructor Relationship Specialty Start Date [place] [address] [place] [address] PCP - General 07/19/21 Rodríguez Saxena MD [address] [facility] [address] [place] [address] Consulting Physician Neurology 01/09/23 Eldon Fitch MD [address] [facility] [address] [place] [address] Consulting Physician Neurosurgery 2/6/24 documented as of this encounter
--- OUTSIDE RECORDS SUMMARY | 2024-05-14 13:42 | XMS_ITS | Clinical Summary ---
Author Organization [facility] m Address [address] [place] [address] Care Team Providers Care Ground Crew Supervisor Name Role Phone José Antonio Villaseñor MD Primary Care Provider [phone] Rodríguez Saxena MD Unavailable Eldon Fitch MD Unavailable Allergies Active Allergy Reactions Criticality Noted Date Comments Ibuprofen Anaphylaxis High 09/05/2023 Penicillin Rash Medium 09/09/2021 patient has tolerated several doses of cefepime Medications albuterol 90 mcg/actuation inhaler every 4 (four) hours. 12/16/19 20 Active fluticasone (Flovent HFA) 110 mcg/actuation inhaler every 12 (twelve) hours. Active cyclobenzapri ne (Flexeril) 5 mg tablet Take 1 tablet (5 mg) by mouth in the morning, at noon, and at bedtime. Active famotidine (Pepcid) 40 mg tablet Take 1 tablet (40 mg) by mouth if needed each day for heartburn. Active linaCLOtide (Linzess) 145 mcg capsule Take 1 capsule (145 mcg) by mouth before breakfast. Do not crush or chew. Active golimumab (SIMPONI ARIA IV) 08/18/19 23 Active levocetirizin e (Xyzal) 5 mg tablet Take 1 tablet (5 mg) by mouth 1 (one) time each day. 12/01/19 23 Active diphenhydrAMI NE 25 mg tablet Take 1 tablet (25 mg) by mouth every 6 (six) hours for 5 days. 20 tablet 09/04/19 24 Active EPINEPHrine (EpiPen 2-Bethel) 0.3 mg/0.3 mL injection syringe Inject 0.3 mL (0.3 mg) as directed 1 (one) time if needed for anaphylaxis for up to 1 dose. Inject into upper leg. Call 911 after use. 1 each 09/04/19 24 Active polyethylene glycol (Glycolax) 17 gram packet Take 17 g by mouth 1 (one) time each day. 3 packet 04/30/19 25 025 Active ferrous sulfate 325 (65 Fe) MG tablet Take 1 tablet (325 mg) by mouth 1 (one) time each day. 30 tablet 04/30/19 25 025 Active methylPREDNIS olone (Medrol) 4 mg tablet TAKE 1 TABLET BY MOUTH EVERY DAY WITH FOOD NEEDED FOR PAIN 02/27/20 24 Active omeprazole (PriLOSEC) [address] capsule Take 1 capsule (20 mg) by mouth before breakfast. Do not crush or chew. 025 Discontinued(Ny d List Cleanup) DULoxetine (Cymbalta) [address] capsule Take 1 capsule (30 mg) by mouth in the morning and at bedtime. Do not crush or chew. 180 capsule 05/08/19 24 025 Discontinued Active Problems Problem Noted Date Diagnosed Date Iron deficiency anemia 05/01/2024 Neuropathy 05/08/2023 Rheumatoid arthritis 09/15/2021 Polyp of colon 09/15/2021 Major depressive disorder, single episode, moder ate 09/15/2021 Lumbar radiculopathy 09/15/2021 Insomnia 09/15/2021 Hypotension 09/15/2021 Gastroesophageal reflux disease 09/15/2021 Anastomotic ulcer 09/15/2021 Thyroid cyst 09/15/2021 Cyst of ovary 10/26/2020 Asthma 10/26/2020 Encounters Date Type Department Care Team Description 05/01/2024 9:00 AM EST Office Visit [place] [address] [address], [address] [place] [address] José Antonio Villaseñor MD Constipation, unspecified constipation type (Primary Dx); Iron deficiency anemia, unspecified iron deficiency anemia type; Acute left-sided low back pain without sciatica; History of gastric bypass 05/01/2024 Telephone [place] [address], [address] [place] [address], [place] [address] José Antonio Villaseñor MD Referral 05/01/2024 Telephone [facility] Family [facility] - [facility] [address], [address] [place] [address] José Antonio Villaseñor MD 04/30/2024 10:33 AM EST - 04/30/2024 2:27 PM EST Emergency [facility] Emergency [address] [place] [address] Rodríguez Pack DO Constipation, unspecified constipation type (Primary Dx); Iron deficiency anemia, unspecified iron deficiency anemia type Discharge Disposition: Home or Self Care 04/30/2024 Travel from Last 3 Months Immunizations Immunization Administration Dates Next Due Pfizer SARS-CoV-2 Vaccination Booster 03/31/2021 ,09/14/2020 Pneumococcal Polysaccharide PPSV23 09/26/2020 Family History Medical History Relation Name Comments Hypertension Mother Diabetes type II Other Grandmother Relation Name Status Comments Mother Other Grandmother Social History Tobacco Use Types Packs/Day Years Used Date Smoking Tobacco: Former Cigarettes Smokeless Tobacco: Never Tobacco Cessation:Counseling Given: Not Answered PHQ-2 Answer Date Recorded Patient Health Questionnaire-2 Score 2 09/15/2021 Comments No Sex and Gender Information Value Date Recorded Sex Assigned at Female 10/09/2022 1:12 PM EDT Legal Sex Female 12:18 AM EDT Gender Identity Female 10/09/2022 1:12 PM EDT Sexual Orientation Straight 10/09/2022 1: 12 PM EDT Last Filed Vital Signs Vital Sign Reading Time Taken Comments Blood Pressure 106/74 05/01/2024 9:09 AM EST Pulse 73 05/01/2024 9:09 AM EST Temperature 36.7 ??C (98.1 ??F) 04/30/2024 10:[address] Respiratory Rate 16 04/30/2024 1:32 PM EST Oxygen Saturation 97% 05/01/2024 9:09 AM EST Inhaled Oxygen Concentration - - Weight 49.7 kg (109 lb 9.6 oz) 05/01/2024 9:09 A M EST Height 160 cm (5' 2.99 ) 05/01/2024 9:09 AM EST Body Mass Index 19.42 05/01/2024 9:09 AM EST Plan of Treatment Health Maintenance Due Date Last Done Comments CT Colonography 1973 Diabetes: Hemoglobin A1C 1973 FIT-DNA 1973 FIT 1973 FOBT 1973 Sigmoidoscopy 1973 MMR Vaccines (1 of 1 - Standard series) 1974 Diabetes: Retinopathy Screening 1983 Hepatitis C Screening 1991 Hepatitis B Vaccines (1 of 3 - 19+ 3-dose series) 02/16/1992 Zoster Vaccines (1 of 2) 02/16/1992 DTaP/Tdap/Td Vaccines (1 - Tdap) 1993 HPV/Cotest 2003 Pneumococcal Vaccine: Pediatrics (0 to 5 Years) and At-Risk Patients (6 to 64 Years) (2 of 2 - PCV) 09/26/2021 09/26/2020 Mammogram 11/24/2022 11/24/2020 Cervical Cancer Screening 11/18/2023 Pap Smear 11/18/2023 11/17/2020, 11/17/2020 COVID-19 Vaccine (4 - 2023-2 5 season) 2023 03/31/2021, 09/14/2020, 08/23/2020 Influenza Vaccine (#1) 2023 Colonoscopy 08/31/2029 09/01/2019 Colorectal Cancer Screening 08/31/2029 HIB Vaccines Aged Out No longer eligi ble based on patient's age to complete this topic HPV Vaccines Aged Out No longer eligi ble based on patient's age to complete this topic Hepatitis A Vaccines Aged Out No long er eligible based on patient's age to complete this topic IPV Vaccines Aged Out No longer eligi ble based on patient's age to complete this topic Meningococcal Vaccine Aged Out No yazmin shira eligible based on patient's age to complete this topic Rotavirus Vaccines Aged Out No longer eligible based on patient's age to complete this topic Procedures Procedure Name Priority Date/Time Associated Diagnosis Comments CT ABDOMEN PELVIS W IV CONTRAST STAT 04/30/2024 1:01 PM EST EXTRA UA CULTURE CONTAINER STAT 04/30/2024 11:15 AM EST URINALYSIS W/ REFLEX CULTURE PANEL WITH EXTRA URINE STAT 04/30/2024 11:15 AM EST LIPASE STAT 04/30/2024 11:15 AM EST URINALYSIS W/ REFLEX CULTURE STAT 04/30/2024 11:15 AM EST HEPATIC FUNCTION PANEL STAT 04/30/2024 11:15 AM EST BASIC METABOLIC PANEL STAT 04/30/2024 11:15 AM EST PROTIME & PTT STAT 04/30/2024 11:15 AM EST CBC WITH AUTO DIFFERENTIAL STAT 04/30/2024 11:15 AM EST from Last 3 Months Results * CT abdomen pelvis w IV [...] contrast administration. ??Contrast Type: OMNIPAQUE ??350 mg/mL [facility] [id number] ??Contrast Amt: 75.00 ??CC/mL COMPARISON: None 03/21/2022 [...] after contrastadministration. Contrast Type: OMNIPAQUE 350 mg/mL [facility] [id number] Amt: 75.00 CC/mL COMPARISON: None 03/21/2022 FINDINGS: [...] MD A: SANTANA 04/30/2024 1:14 PM EST Rodríguez Pack DO IMG CT PROCEDURES Final Re sult * Extra Urine Container (04/30/2024 11:15 AM EST) Urine Urine specimen obtained by clean catch procedure / Unknown Non-blood Collection / Unknown 04/30/2024 11:15 AM EST 04/30/2024 11:17 AM EST Rodríguez Pack DO LAB URINE ORDERABLES Final Result [facility] [address] [place] [address], * Urinalysis with reflex to culture (04/30/2024 11:15 AM EST) Color, Urine Yellow Yellow LAB URINALYSIS - DIPSTICK METHOD 04/30/2024 11:20 AM EST [facility] Clarity, Urine Clear LAB URINALYSIS - DIPSTICK METHOD 04/30/2024 11:20 AM EST [facility] Specific Wallace, Urine 1.015 1.005 - 1.030 LAB URINALYSIS - DIPSTICK METHOD 04/30/2024 11:20 AM [facility] pH, Urine 6.0 5.0 - 8.0 pH LAB URINALYSIS - DIPSTICK METHOD 04/30/2024 11:20 AM [facility] Leukocytes Esterase Negative Negative LAB URINALYSIS - DIPSTICK METHOD 04/30/2024 11:20 AM EST [facility] Nitrite, Urine Negative Negative LAB URINALYSIS - DIPSTICK METHOD 04/30/2024 11:20 AM [facility] Protein, Urine Negative Negative LAB URINALYSIS - DIPSTICK METHOD 04/30/2024 11:20 AM [facility] Glucose, Urine Negative Negative LAB URINALYSIS - DIPSTICK METHOD 04/30/2024 11:20 AM [facility] Ketones, Urine Negative Negative LAB URINALYSIS - DIPSTICK METHOD 04/30/2024 11:20 AM [facility] Urobilinogen, Urine 1.0 0.2, 1.0 mg/dL LAB URINALYSIS - DIPSTICK METHOD 04/30/2024 11:20 AM [facility] Bilirubin, Urine Negative Negative LAB URINALYSIS - DIPSTICK METHOD 04/30/2024 11:20 AM [facility] Blood, Urine Negative LAB URINALYSIS - DIPSTICK METHOD 04/30/2024 11:20 AM [facility] Urine Urine specimen obtained by clean catch procedure / Unknown Non-blood Collection / Unknown 04/30/2024 11:15 AM EST 04/30/2024 11:17 AM EST us Rodríguez Pack DO LAB URINE ORDERABLES Final Result [facility] [address] [place] [address], * PT/PTT (04/30/2024 11:15 AM EST) PTT 26.0 23.7 - 35.4 seconds 04/30/2024 11:34 AM [facility] INR 1.0 0.8 - 1.2 04/30/2024 11:34 AM EST [facility] Comment: International Normalized Ratio Reference Indications: ? 0.8 - 1.2 ? ....... ??Normal Non-Therapeutic 2.0 - 3.0 ? ....... ??Standard Therapeutic 3.0 - 4.3 ? ....... ??High Level Therapeutic Protime 13.1 11.5 - 14.6 seconds 04/30/2024 11:34 AM EST [facility] Blood Venous blood specimen / Unknown Venipuncture / Unknown 04/30/2024 11:15 AM EST 04/30/2024 11:17 AM EST Rodríguez Pack DO LAB BLOOD ORDERABLES Final Result Performing Organization Address City/State/[facility] Co de Phone Number [facility] [address] [place] [address], * (ABNORMAL) CBC auto differential (04/30/2024 11:15 AM EST) Auto WBC 7.1 4.2 - 10.8 10? 3 /uL LAB HEMATOLOGY METHOD 04/30/2024 11:21 AM EST [facility] RBC 4.35 3.70 - 4.90 10? 6 /uL LAB HEMATOLOGY METHOD 04/30/2024 11:21 AM EST [facility] Hemoglobin 9.1(L) 12.0 - 16.0 g/dL LAB HEMATOLOGY METHOD 04/30/2024 11:21 AM EST [facility] Hematocrit 30.5(L) 37.0 - 47.0 % LAB HEMATOLOGY METHOD 04/30/2024 11:21 AM EST [facility] MCV 70.1(L) 80.0 - 100.0 fL LAB HEMATOLOGY METHOD 04/30/2024 11:21 AM EST [facility] MCH 20.9(L) 25.4 - 34.6 pg LAB HEMATOLOGY METHOD 04/30/2024 11:21 AM EST [facility] MCHC 30(L) 31 - 37 g/dL LAB HEMATOLOGY METHOD 04/30/2024 11:21 AM EST [facility] RDW 20.2(H) 11.5 - 14.5 % LAB HEMATOLOGY METHOD 04/30/2024 11:21 AM EST [facility] Platelets 338 130 - 450 10? 3 /uL LAB HEMATOLOGY METHOD 04/30/2024 11:21 AM EST [facility] MPV 8.3 7.0 - 14.0 fL LAB HEMATOLOGY METHOD 04/30/2024 11:21 AM EST [facility] Neutrophils Relative 66.1 41.0 - 77.0 % LAB HEMATOLOGY METHOD 04/30/2024 11:21 AM EST [facility] Lymphocytes Relative 24.2 24.0 - 44.0 % LAB HEMATOLOGY METHOD 04/30/2024 11:21 AM EST [facility] Monocytes Relative 7.3 0.0 - 15.0 % LAB HEMATOLOGY METHOD 04/30/2024 11:21 AM EST [facility] Eosinophils Relative 1.3 0.0 - 5.0 % LAB HEMATOLOGY METHOD 04/30/2024 11:21 AM EST [facility] Basophils Relative 0.7 0.0 - 3.0 % LAB HEMATOLOGY METHOD 04/30/2024 11:21 AM [facility] Immature Granulocyte % 0.4 0.0 - 0.4 % LAB HEMATOLOGY METHOD 04/30/2024 11:21 AM EST [facility] Neutrophils Absolute 4.69 1.80 - 7.00 10? 3 /uL LAB HEMATOLOGY METHOD 04/30/2024 11:21 AM [facility] Lymphocytes Absolute 1.72 1.00 - 4.80 10? 3 /uL LAB HEMATOLOGY METHOD 04/30/2024 11:21 AM EST [facility] Monocytes Absolute 0.52 Not Established 10? 3 /uL LAB HEMATOLOGY METHOD 04/30/2024 11:21 AM EST [facility] Eosinophils Absolute 0.09 0.05 - 0.35 10? 3 /uL LAB HEMATOLOGY METHOD 04/30/2024 11:21 AM EST [facility] Basophils Absolute 0.05 Not Established 10? 3 /uL LAB HEMATOLOGY METHOD 04/30/2024 11:21 AM EST [facility] Immature Granulocyte Absolute 0.03 Not Established 10? 3 /uL LAB HEMATOLOGY METHOD 04/30/2024 11:21 AM EST [facility] Blood Venous blood specimen / Unknown Venipuncture / Unknown 04/30/2024 11:15 AM EST 04/30/2024 11:17 AM EST [facility] BLOOD ORDERABLES Final Result Performing Organization Address [facility]/ZIP Co de Phone Number [facility] [address] [place] [address], * Lipase (04/30/2024 11:15 AM EST) Lipase 25 13 - 75 U/L 04/30/2024 11:38 AM EST [facility] Blood Venous blood specimen / Unknown Venipuncture / Unknown 04/30/2024 11:15 AM EST 04/30/2024 11:17 AM EST [facility] BLOOD ORDERABLES Final Result Performing Organization Address [facility] de Phone Number [facility] [address] [place] [address], * Hepatic function panel (04/30/2024 11:15 AM EST) Albumin 3.4 3.4 - 5 g/dL 04/30/2024 11:40 AM EST [facility] Total Bilirubin 0.70 0.20 - 1.00 mg/dL 04/30/2024 11:40 AM EST [facility] Bilirubin, Direct 0.16 0 - 0.2 mg/dL 04/30/2024 11:40 AM EST [facility] Alkaline Phosphatase 101 45 - 117 U/L 04/30/2024 11:40 AM EST [facility] AST 16 15 - 37 U/L 04/30/2024 11:40 AM EST [facility] ALT (SGPT) 16 13 - 61 U/L 04/30/2024 11:40 AM EST [facility] Total Protein 7.6 6.4 - 8.2 g/dL 04/30/2024 11:40 AM EST [facility] Blood Venous blood specimen / Unknown Venipuncture / Unknown 04/30/2024 11:15 AM EST 04/30/2024 11:17 AM EST Rodríguez Pack DO LAB BLOOD ORDERABLES Final Result [facility] [address] [address], * Basic metabolic panel (04/30/2024 11:15 AM EST) Sodium 138 136 - 145 mmol/L 04/30/2024 11:38 AM EST ED [facility] Potassium 3.5 3.5 - 5.1 mmol/L 04/30/2024 11:38 AM EST [facility] Chloride 105 98 - 107 mmol/L 04/30/2024 11:38 AM EST ED [facility] CO2 28 21 - 32 mmol/L 04/30/2024 11:38 AM EST [facility] BUN 9 7 - 18 mg/dL 04/30/2024 11:38 AM EST [facility] Creatinine 0.75 0.60 - 1.30 mg/dL 04/30/2024 11:38 AM EST [facility] Glucose 87 70 - 99 mg/dL 04/30/2024 11:38 AM EST [facility] Calcium 9.00 8.50 - 10.10 mg/dL 04/30/2024 11:38 AM EST [facility] Anion Gap 5 5 - 15 mmol/L 04/30/2024 11:38 AM EST [facility] eGFR >60.0 mL/min/1.7 3m*2 04/30/2024 11:38 AM EST [facility] Comment: Result interpretation of the [...] Pack DO LAB BLOOD ORDERABLES Final Result ED [facility] [address] [facility] [place] [place] [address], from Last 3 Months Insurance MEDICARE [facility] Care Teams Ground Crew Supervisor Relationship Specialty Start [place] [address] [place] [address] PCP - General 07/19/21 Rodríguez Saxena MD [address] [facility] [address] [place] [address] Consulting Physician Neurology 01/09/23 Eldon Fitch MD [address] [facility] [address] [place] [address] Consulting Physician Neurosurgery 05/08/23
--- OUTSIDE RECORDS SUMMARY | 2024-05-14 13:43 | XMS_ITS ---
Author Organization [facility] Address [address] [place] [id number] Care Team Providers Care Silk Weaver Name Role Phone José Antonio Villaseñor Iii, MD Primary Care Provider Samaraalida molly EasleybinEdwin yoderheidi May [phone] Allergies Allergen (clinical drug ingredient) Drug/Non Drug Allergy documented on EMR Reaction Allergy Type Onset Date Status Penicillin Unknown Drug Allergy Active REASON FOR VISIT Gastritis Medications Medication SIG (Take, Route, Frequency, Duration) Notes Start Date End Date Status Simponi 50 MG/0.5ML as directed Subcutaneous Active Ondansetron HCl 4 MG 1 tablet Orally Onc e a day for 30 days prn 12/16/2021 Active Voquezna 10 MG 1 tablet Orally Once a day for 90 days 03/18/2024 06/16/2024 Active Dicyclomine HCl 10 mg TAKE 1 CAPSULE SONI RY 12 HOURS Active Sucralfate 1 GM/10ML 10 mL 1 hour before meals and at bedtime on an empty stomach Orally Four times a day for 90 days 04/15/2024 Active Flovent HFA 110 MCG/ACT 2 puffs Inhalati on Twice a day Active Omeprazole 20 mg TAKE 1 CAPSULE EVERY 12 HOURS prn Active Famotidine 40 mg TAKE 1 TABLET EVERY 12 HOURS Active Albuterol Sulfate HFA 108 (90 Base) MCG/ACT 1 puff as needed Inhalation every 4 hrs prn Active Social History Sex Assigned At : Social History Observation Description Sex Assigned At Female Section Notes: Occasional alcohol use No illicit drug use Problems Problem Type SNOMED Code ICD Code Onset Dates Problem Status W/U Status Risk Notes Problem 51267850 Heartburn (R12) Active confirmed 12/17/2024Pat ient still with some heartburn symptoms despite omeprazole famotidine and sucralfate.Sh e was told to stop omeprazole and will replace it Voquezna 10mg. Will follow clinically. Vital Signs Height 63 in 03/18/2024 Weight 101 lbs 03/18/2024 BMI 17.89 kg/m2 03/18/2024 Weight-kg 45.81 kg 03/18/2024 Encounters Encounter Location Date Provider Diagnosis [facility] Office [address] [place] [address] 03/18/2024 Bo Paula Heartburn R12 and Constipation K59.09 Assessments Encounter Date Diagnosis (ICD Code) Assessment Notes Treatment Notes Treatment Clinical Notes Section Notes 03/18/2024 Heartburn (ICD-10 - R12) 4Patie nt still with some heartburn symptoms despite omeprazole famotidine and sucralfate.She was told to stop omeprazole and will replace it Voquezna 10mg. Will follow clinically. 03/18/2024 Constipation (ICD-10 - K59.09) 12/16/2021 Stop Amitiza Start Linzess 72mcg samples given Will follow up clinically 01/31/2022 Will increase Linzess to 145mcg daily Samples given Will follow up clinically in 1 month to asses response 03/03/2022 Continue on Linzess 145mcg daily in AM 06/19/2022 Continue on Linzess 145mcg. This is working for her 3Contin ue on Linzess 145 mcg. This strategy is working for her. 07/17/2023 Will provide Linzess refill This dose is working for her 09/03/2023 Continues on Linzess with adequate control. Oriented to high fiber diet and adequate hydration 4Conti nue on Linzess 145 mcg for the time being. This seems to be working for her. Plan Of Treatment Medication Medication Name Sig Start Date Stop Date Notes Voquezna 10 MG 1 tablet Orally Once a day for 90 days 03/0206/16/2024 Next Appt Details Follow Up: 2 Months, Reason: Progress Notes * Garry SUMNER:[birth year] (49 yo F)Acc No.[id number]:03/18/2024 Progress Notes Patient:?Shayla SUMNER Provider:?Bo Rucker M.D. :1975???Age:49 Y???Sex:Female D ate:03/18/2024 Address:[address] [place] [address] Pcp:José Antonio Villaseñor Iii, MD Subjective: * Chief Complaints: * ???Gastritis * HPI: ???Today's Visit::? Case of a 48-year-old female patient that comes in today for follow-up of heartbunr dyspepsia. For symptom management she is on??PPI bid and Sucralfate qid as well as? famotidine.??Her constipation symptoms are under control with Linzess 145 mcg daily.??She comes in today for follow up.She refers she continues with some epigastric pain and heartburn symptoms. She did try to Voquenza and this medication seem to work better for her.She denies nausea vomiting. She denies melena hemaotchezia heartburn dyspepsia hematemesis coffee-ground emesis. * ROS:?General/Constitutional:?Denies?Fever.?Denies?Weight gain.?Denies?Weight loss (dieting).?Gastrointestinal:?Denies?Urinary Incontinence.?Denies?Fecal incontinence.?Respiratory:?Denies?Chronic cough.?Denies?Shortness of breath.?Denies?Wheezing or asthma symptoms.?Cardiovascular:?Denies?Chest pain.?Denies?Heart racing/skipping.?Denies?High blood pressure.? * Medical History:? * Surgical History:?Back Sx CT scan abd/pelvis: 08/15/2021 CONCLUSION: 1. No acute intra-abdominal findings 2. No bowel obstruction, perforation or intra-abdominal inflammatory change 3. Bilateral 3 mm nonobstructing renal calculi Gastric bypass Lap band Lap band removal Tubal ligation CT scan: Gastric bypass nephrolithiasis no acute abnormalities Fluid-filled loops of large and small bowel without wall thickening or obstruction. changes in the cervical spine 12/12/2021Gastric bypass Colonoscopy:Diverticuulosis colon polyp-TA colo call back3 years random colon biopsies negative 09/16/2019Back Sx egd:gastic by pass gastritis duodenitis irregular z line gastric ulcer 03/15/2022EGD Gastric bypass anastomosis ulcer gastritis irregular z line normal jejunum 08/15/2023EGD: gastritis gastric ulcer normal jejunum 11/14/2023 * Hospitalization/Major Diagno stic Procedure:? * Family History:?Migrated Fam faye History: diagnosed with Diabetes.? Paternal uncle2 with colon cancer. * Social History:?Migrated Social History:?Drugs/Alcohol: (Alcohol Screen (Audit-C)):Did you have a drink containing alcohol in the past year?: Yes, How often did you have a drink containing alcohol in the past year?: Monthly or less (1 point), Points: 1, Interpretation: Negative. ?Tobacco Use: (Tobacco Use/Smoking):Tobacco use:: nonsmoker. ???Alcohol:?Alcohol?Current or past use of alcohol:?Current (some days) / Algunos lobato ???Occasional alcohol use No illicit drug use. * Medications:?TakingOmeprazol e 20 mg Capsule Delayed Release TAKE 1 CAPSULE EVERY 12 HOURS , Notes to Pharmacist: prnFamotidine 40 mg Tablet TAKE 1 TABLET EVERY 12 HOURS Albuterol Sulfate HFA 108 (90 Base) MCG/ACT Aerosol Solution 1 puff as needed Inhalation every 4 hrs , Notes to Pharmacist: prnFlovent HFA 110 MCG/ACT Aerosol 2 puffs Inhalation Twice a day Simponi 50 MG/0.5ML Solution Auto-injector as directed Subcutaneous Ondansetron HCl 4 MG Tablet 1 tablet Orally Once a day , Notes to Pharmacist: prnDicyclomine HCl 10 mg Capsule TAKE 1 CAPSULE EVERY 12 HOURS Sucralfate 1 GM/10ML Suspension 10 mL 1 hour before meals and at bedtime on an empty stomach Orally Four times a day , stop date 04/15/2024Medication List reviewed and reconciled with the patientTaking Omeprazole 20 mg Capsule Delayed Release TAKE 1 CAPSULE EVERY 12 HOURS , Notes to Pharmacist: prnTaking Famotidine 40 mg Tablet TAKE 1 TABLET EVERY 12 HOURS Taking Albuterol Sulfate HFA 108 (90 Base) MCG/ACT Aerosol Solution 1 puff as needed Inhalation every 4 hrs , Notes to Pharmacist: prnTaking Flovent HFA 110 MCG/ACT Aerosol 2 puffs Inhalation Twice a day Taking Simponi 50 MG/0.5ML Solution Auto-injector as directed Subcutaneous Taking Ondansetron HCl 4 MG Tablet 1 tablet Orally Once a day , Notes to Pharmacist: prnTaking Dicyclomine HCl 10 mg Capsule TAKE 1 CAPSULE EVERY 12 HOURS Taking Sucralfate 1 GM/10ML Suspension 10 mL 1 hour before meals and at bedtime on an empty stomach Orally Four times a day , stop date 04/15/2024Medication List reviewed and reconciled with the patient * Allergies:?Penicillinno[Ben rgies Verified] Objective: * Vitals:?Ht: 63 in, Wt: 101 l bs, BMI:17.89Index, Wt-k.81 kg. Past Vitals:* 12/11/2023 Ht: 63 in, Wt: 101 lbs * Examination: ???Physical Exam: ?CONSTITUTIONAL:?well developed, well nourished , in no acute distress , ambulating without difficulty?, normal communication ability?.?EYES:?Conjunctivae and eyelids appear normal, Sclerae : White without injection?.?HENT:?Head, normocephalic, atraumatic,Face, Face within normal limits,Ears, External ears within normal limits,Nose/Nasopharynx, External nose normal appearance, nares patent, no nasal discharge,Mouth and Throat, Oral cavity appearance normal,Lips, Appearance normal.?NECK/THYROID:?normal appearance , without tenderness upon palpation , no deformities , trachea midline , Thyroid normal size , no masses , thyroid nontender.?CHEST:?no lesions, no deformities, no traumatic injuries, no significant scars are present, chest wall non-tender, no masses present,?breathing is unlabored without accessory muscle use,normal breath sounds.?CARDIOVASCULAR:?no edema, no murmurs, regular rate and rhythm.?GASTROINTESTINAL?Abdomen, soft, nontender, nondistended , no guarding or rigidity , no masses palpable , normal bowel sounds ,Liver and Spleen, no hepatomegaly present , no hepatosplenomegaly , liver nontender , spleen not palpable?.?LYMPHATIC:?Neck, no lymphadenopathy?.?MUSCULOSKELETAL:?normal gait and station , no tenderness or deformities present?.?SKIN:?no rashes , no jaundice present , good turgor , no masses , no tenderness on palpation.?NEUROLOGIC:?oriented to person, place and time , normal sensation , short and jail memory intact?.?PSYCH:?normal mood with appropriate affect?.? Assessment: * Assessment: 1.?Heartburn - R12 (Primary) ???Notes :03/18/2024atient still with some heartburn symptoms despite omeprazole famotidine and sucralfate.She was told to stop omeprazole and will replace it Voquezna 10mg.? Will follow clinically.???2.?Constipation - K59.09???Notes :12/16/2021top AmitizaStart Linzess 72mcg samples givenWi follow up /1/2022Will increase Linzess to 145mc[facility]Samples [facility] to asses [id number]/2/2022Continue on Linzess 145mcg daily in AM3Continue on Linzess 145mcg. This is working for her3Continue on Linzess 145 mcg. This strategy is working for her.07/17/2023Will provide Linzess refillThis dose is working for her09/03/2023 Continues on Linzess with adequate control. Oriented to high fiber diet and adequate hydration 4Continue on Linzess 145 mcg for the time being.? This seems to be working for her.??? Plan: * Treatment: * Procedure Codes:? * Follow Up:?2 Months * Images: Billing Information: * Visit Code:? 54441 Office or other outpatient visit for the evaluation and management of an established patient, which requires at least 2 of these 3 duckworth components: a. * Procedure Codes:? * Sign off status: Completed true * Provider:?Bo Rucker M.D. Date:?03/02 Generated for Vj lindsay/Nickolas/Lilaitting on:?05/14/2024 01:42 PM EST History and Physical Notes * HPI (History of Present Illness) Category Sub-Category Detail Notes Category Not es Today's Visit: Case of a 48- year-old female patient that comes in today for follow-up of heartbunr dyspepsia. For symptom management she is on PPI bid and Sucralfate qid as well as famotidine. Her constipation symptoms are under control with Linzess 145 mcg daily. She comes in today for follow up.She refers she continues with some epigastric pain and heartburn symptoms. She did try to Voquenza and this medication seem to work better for her.She denies nausea vomiting. She denies melena hemaotchezia heartburn dyspepsia hematemesis coffee-ground emesis. Examination Category Sub-Category Detail Notes Category Not es Physical Exam CONSTITUTIONAL: well developed, well nourished , in no acute distress , ambulating without difficulty , normal communication ability EYES: Conjunctivae and eye lids appear normal, Sclerae : White without injection HENT: Head, normocephalic, atraumatic, Face, Face within normal limits, Ears, External ears within normal limits, Nose/Nasopharynx, External nose normal appearance, nares patent, no nasal discharge, Mouth and Throat, Oral cavity appearance normal, Lips, Appearance normal NECK/THYROID: normal appearance , without tenderness upon palpation , no deformities , trachea midline , Thyroid normal size , no masses , thyroid nontender CARDIOVASCULAR: no edema, no murmurs , regular rate and rhythm CHEST: no lesions, no defor mities, no traumatic injuries, no significant scars are present, chest wall non-tender, no masses present, breathing is unlabored without accessory muscle use,normal breath sounds GASTROINTESTINAL Abdomen , soft, nont luis, nondistended , no guarding or rigidity , no masses palpable , normal bowel sounds , Liver and Spleen , no hepatomegaly present , no hepatosplenomegaly , liver nontender , spleen not palpable NEUROLOGIC: oriented to person, place and time , normal sensation , short and exterminator helper memory intact SKIN: no rashes , no jaund ice present , good turgor , no masses , no tenderness on palpation MUSCULOSKELETAL: normal gait and stat ion , no tenderness or deformities present LYMPHATIC: Neck , no lymphadeno jayshree PSYCH: normal mood with karl ropriate affect
--- OUTSIDE RECORDS SUMMARY | 2024-05-14 13:43 | XMS_ITS ---
Author Organization [facility] Address [address] [place] [address] Care Team Providers Care Machine Former Name Role Phone Ramon Woods [phone] Patient, patient Unavailable Unavailable REASON FOR VISIT CHECK UP RT//MJ(RT) TO KNEE//B12 RT//DXUS Encounters Encounter Location Date Provider Diagnosis Ramon Woods DPM [place] [id number] [place] [phone] 08/21/2023 Ramon Woods Plan Of Treatment No Information Progress Notes * Shayla TILLEYDOB:[birth year] (49 yo F)Acc No.[id number]:08/21/2023 UNLOCKED PROGRESS NOTE Patient:?FLOWERSHectorTAM Shayla Provider:?Ramon Woods DPM :1975???Age:48 Y???Sex:Female D ate:08/21/2023 Address:[address] [place], [place] [phone] Subjective: * Chief Complaints: * ???1. CHECK UP RT//MJ(RT) TO KNEE//B12 RT//DXUS. * Medical History:? Objective: * Vitals:? Therapeutic Interventions: Assessment: Plan: * Treatment: * Billing Information: * Visit Code:? * Procedure Codes:? * Electronic signature of Guero Woods DPM on 05/14/2024 at 01:43 PM EST Sign off status: Pending * Provider:?Ramon Woods, MED Date:?08/21/2023 Generated for Vj lindsay/Nickolas/Marycruz on:?05/14/2024 01:43 PM EST
--- OUTSIDE RECORDS SUMMARY | 2024-05-14 13:43 | XMS_ITS ---
Author Organization [facility] Address [address] [place] [id number] Care Team Providers Care Sales Appointment Coordinator Name Role Phone José Antonio Villaseñor Iii, MD Primary Care Provider Unav ailable Bo Rucker Unavailable [phone] Medications Medication SIG (Take, Route, Fr equency, Duration) Notes Start Date End Date Status Sucralfate 1 GM/10ML 10 mL 1 hour before meals and at bedtime on an empty stomach Orally Four times a day for 90 days 04/15/2024 Active Social History Sex Assigned At : Social History Observation Description Sex Assigned At Female Encounters Encounter Location Date Provider Diagnosis [facility] Office [address] [place] [address] 01/16/2024 Bo Rucker Dyspepsia K30 Assessments Encounter Date Diagnosis (ICD Code) Assessment Notes Treatment Notes Treatment Clinical Notes Section Notes 01/16/2024 Dyspepsia (ICD-10 - K30) 12/16/2021 Will increase PPI to bid. Results [...] has had to use H2 blockers sparingly 11/01/2022 She is doing well She was told to DC sucralfate and only conitnue on H2 luca and PPi bid. Will attempt to simplify her therapy. Will follow up for clnical control of her symptoms in 2 month. Results of the EGD and biopy findings revise and discuss with patient 11 3Patient symptomatology is controlled with current management protocol. Nevertheless she continues with some breakthrough symptoms. She would like to reduce pill burden as well. Will discontinue omeprazole twice daily and transition her to lansoprazole daily. Pantoprazole twice daily did not improve her symptomatology. 12/11/2023esults of EGD revised discussed with patient.Patient continues with some dyspepsia symptoms although improved. She is on PPI twice daily as well as Carafate. She has not had to use H2 blockers at this point. She feels her symptoms are better. Some breakthrough heartburn symptoms. Will perform therapeutic trial with Voquezna 10 mg daily and follow clinical response. Samples given. Plan Of Treatment Medication Medication Name Sig Start Date Stop Date Notes Sucralfate 1 GM/10ML 10 mL 1 hour before meals and at bedtime on an empty stomach Orally Four times a day for 90 days 04/15/2024 Progress Notes * FLOWERS Shayla TURCIOSDOB:[birth year] (48 yo F)Acc No.[id number]:01/16/2024 Patient:?Lucinda SUMNERbel :1975???Age:48 Y???Sex:Female Address:[address] [address] * Refills? Refill Sucralfate Suspension, 1 GM/10ML, Orally, 3600, 10 mL 1 hour before meals and at bedtime on an empty stomach, Four times a day, 90 days, Refills=0 Subjective: * Chief Complaints: * ??? * Medical History:? * Surgical History:? * Hospitalization/Major Diagno stic Procedure:? * Medications:? Objective: * Vitals:? Past Vitals:* 12/11/2023 Ht: 63 in, Wt: 101 lbs * Physical Examination:? Assessment: * Assessment: 1.?Dyspepsia - K30 (Primary) ???Notes :12/16/2021Will increase PPI to bid. Results of recent CAT scan and ER visit revise and discuss with vohdnnt84/2/2022Continue on PPi bidWill add sucralfate qidWill do EGD to asses for PUD [id number]/21/2022Will add H2 blockersContinue on sucralfate tid as well as PPiWill DC pantoprazole and start on omeprazole06/19/2022ontinue on current anti relfux protocol. She seems to be improving slowlyWill follow up clinically08/22/2022Symptoms resolve. Continue on PPi bid and sucralfateShe has had to use H2 blockers sparingly11/01/2022She is doing wellShe was told to DC sucralfate and only conitnue on H2 luca and PPi bid. Will attempt to simplify her therapy. Will follow up for clnical control of her symptoms in 2 month.Results of the EGD and biopy findings revise and discuss with [email or web address] 06/01/2022atient symptomatology is controlled with current management protocol. Nevertheless she continues with some breakthrough symptoms. She would like to reduce pill burden as well. Will discontinue omeprazole twice daily and transition her to lansoprazole daily. Pantoprazole twice daily did not improve her symptomatology.12/11/2023esults of EGD revised discussed with patient.Patient continues with some dyspepsia symptoms although improved. She is on PPI twice daily as well as Carafate. She has not had to use H2 blockers at this point. She feels her symptoms are better. Some breakthrough heartburn symptoms. Will perform therapeutic trial with Voquezna 10 mg daily and follow clinical response. Samples given.??? Plan: * Treatment: * Procedure Codes:? * true * Date:? Generated for Vj lindsay/Nickolas/Lilaitting on:?05/14/2024 01:43 PM EST
--- OUTSIDE RECORDS SUMMARY | 2024-05-14 13:43 | XMS_ITS | Patient Health Record ---
Author Organization [facility] Address [facility] [place] [address] Care Team Providers Care Director Retail Brand Development Name Role Phone Ayden Link Unavailable [phone] ALLERGIES Allergen (clinical drug ingredient) Drug/Non Drug Allergy documented on EMR Reaction Allergy Type Onset Date Status Penicillin rash Drug Allergy Active REASON FOR REFERRAL No Information MEDICATIONS Medication SIG (Take, Route, Frequency, Duration) Notes Start Date End Date Status Pantoprazole Sodium 40 MG 1 tablet Orall y Once a day Active Midodrine HCl 10 MG 1 tablet Orally Thre e times a day Active ProAir HFA 108 (90 Base) MCG/ACT 1 puff as needed Inhalation every 4 hrs Active Amitiza 8 MCG 1 capsule with food and water Orally Twice a day for 30 day(s) 04/16/2020 Active Fludrocortisone Acetate 0.1 MG 1 tablet Orally Three times a Week Active Celecoxib 200 MG 1 capsule with food Orally Once a day Active Methocarbamol 500 MG 1.5 tablets Orally every 4 hrs Active Carafate 1 GM/10ML 10 ml on an empty stomach before meals Orally four times a day for 14 days 02/20/2020 Active Simponi 50 MG/0.5ML as directed Subcutaneous Active traZODone HCl 100 MG 1 tablet at bedtime Orally Once a day Active SOCIAL HISTORY Tobacco Use: Social History Observation Description Date Details (start date - stop date) Current some da y smoker NA - NA Sex Assigned At : Social History Observation Description Sex Assigned At Unknown Tobacco Use/Smoking Question Answer Notes Are you a current some day smoker PROBLEMS Problem Type ICD Code Onset Dates Problem Status W/U Status Risk SNOMED Code Notes Problem Moderate protein-calorie malnutrition (E44.0) Active confirmed 711930011 Problem Slow transit constipation (K59.01) Active confirmed 57361772 Problem Marginal ulcer (K28.9) Active confirmed 109833490 Problem Chronic gastric ulcer without hemorrhage and without perforation (K25.7) Active confirmed [id number] PLAN OF TREATMENT No Information Insurance Providers Payer Name Payer Address Payer Phone Subscriber Number Group Number Insured Name Patient Relationship to Insured Coverage Start Date Coverage End Date [employer] [place] [address] [address] [place] [address] [id number] Shayla Brandon Self - patient is the insured 0 [facility] [address] [place] [address] [id number] Aleksandr Shayla Self - patient is the insured 0 MEDICAL (GENERAL) HISTORY Medical History History ICD Code asthma: Yes (on meds) hypertension: Yes (on meds) bleeding problems: No blood dyscrasias: No heartburn: Yes hiatal hernia: Yes kidney stones: Yes Blood Products - patient rosalva palacios agrees to use of blood products if necessary - YES Colonoscopy - 05/2019 NORMAL Surgical History Surgery Date(Month/Year) Tube ligation 05/22/2019 Tummy tuck 11/18/2014 Tight lift 09/15/2015 Gallbladder 08/08/2016 Discectomy with laminectomy 01/23/2020 Neck discectomy with infusion 02/10/2020 gastric band - [place] Pre-Op wt. 21 5 01/13/2009 gastric band removal - [place] 201 7 gastric bypass - [place] 2017
--- OUTSIDE RECORDS SUMMARY | 2024-05-14 13:43 | XMS_ITS | Data Portability ---
Author Organization [place] - [facility] [address] Address [address] [place] [address] Assessment No assessment recorded. Plan of Treatment Reminders Order Date Submit Date Provider Last Modified By Organization Details Last Modified Time Details Appointments None recorded. Lab pap, LB + HPV - 2020 021 MATTHEW Not available 09:18:18 Referral None recorded. Procedures None recorded. Surgeries None recorded. Imaging MAMMO, screening, tomosynthes is, bilateral 2020 021 MATTHEW Not available 15:40:44 US, transvagina l 2020 MATTHEW Not available 11:11:01 Medication Orders None recorded. Patient TargetsNo targets recorded. Patient InstructionsNo instructions recorded. Reason for Referral None Reported. Results Created Date Observation Date Name Description Value Unit Range Abnormal Flag Note LastModifiedBy Organization Detail LastModifiedTime 11/18/1911/17/2020 urina lysis , dipst ick Leukocytes (reference range: negative kristofer/? ? ?l) negati ve Not Available In-House Results For Internal Use Only, Do Not Delete/merge, [id number] 11/17/2020 09:28:53 11/18/1911/17/2020 urina lysis , dipst ick Nitrite (reference range: negative mg/dl) negati ve Not Available In-House Results For Internal Use Only, Do Not Delete/merge, [id number] 11/17/2020 09:28:53 11/18/1911/17/2020 urina lysis , dipst ick Urobilinogen (reference range: 0.2 - 1 mg/dl) 0.2 Not Available In-Sun se Results For Internal Use Only, Do Not Delete/merge, 11/17/2020 09:28:53 11/18/19 21 11/17/2020 urina lysis , dipst ick Protein (reference range: negative mg/dl) negati ve Not Available In-House Results For Internal Use Only, Do Not Delete/merge, 11/17/2020 09:28:53 11/18/19 21 11/17/2020 urina lysis , dipst ick pH (reference range: 5 - 7 units) 6.0 Not Available In-Sun se Results For Internal Use Only, Do Not Delete/merge, 11/17/2020 09:28:53 11/18/19 21 11/17/2020 urina lysis , dipst ick Blood (reference range: negative rbc/? ? ?l) negati ve Not Available In-House Results For Internal Use Only, Do Not Delete/merge, 11/17/2020 09:28:53 11/18/19 21 11/17/2020 urina lysis , dipst ick Specific gravity (reference range: 1.005 - 1.030) 1.025 Not Available In-Sun se Results For Internal Use Only, Do Not Delete/merge, 11/17/2020 09:28:53 11/18/1911/17/2020 urina lysis , dipst ick Ketone (reference range: negative mg/dl) negati ve Not Available In-House Results For Internal Use Only, Do Not Delete/merge, 11/17/2020 09:28:53 11/18/19 21 11/17/2020 urina lysis , dipst ick Bilirubin (reference range: negative mg/dl) negati ve Not Available In-House Results For Internal Use Only, Do Not Delete/merge, 11/17/2020 09:28:53 11/18/19 21 11/17/2020 urina lysis , dipst ick Glucose (reference range: negative mg/dl) negati ve Not Available In-House Results For Internal Use Only, Do Not Delete/merge, 11/17/2020 09:28:53 11/18/19 21 11/17/2020 urina lysis , dipst ick Appearance (reference range: clear) slight ly cloudy Not Available In-House Results For Internal Use Only, Do Not Delete/merge, [id number] 11/17/2020 09:28:53 11/18/19 21 11/17/2020 urina lysis , dipst ick Color (reference range: yellow) yellow Not Available In-Sun se Results For Internal Use Only, Do Not Delete/merge, [id number] 11/17/2020 09:28:53 10/27/19 21 09/30/2020 CT, abdom en + pelvi s, w/ contr ast No observ ation record ed. BARCODE Not Available 2020 16:05:48 11/25/19 21 11/24/2020 US, trans vagin al No observ ation record ed. [email or web address] [address] [place] [address], [id number], 12/15/2020 09:30:38 11/25/19 21 11/24/2020 US, trans vagin al No observ ation record ed. [email or web address] [address] [place] [address], [address], 11/24/2020 11:20:37 11/25/19 21 11/24/2020 MAMMO , scree leobardo, tomos ynthe sis, bilat eral No observ ation record ed. [email or web address] [address] [place] [address], [id number], 12/15/2020 08:47:27 01/08/20 21 01/07/2021 US, trans vagin al No observ ation record ed. [email or web address] [address] [place] [address], [address], 01/12/2021 10:34:54 01/08/20 21 01/07/2021 US, trans vagin al No observ ation record ed. [email or web address] [address] [place], [address], 01/12/2021 10:34:55 Result Notes None recorded. Problems Name Problem SNOMED Code Status Onset Date Resolution Date Notes Provider Name and Address Organization Details Recorded Time Asthma 871297853 Active 021 Hue Brandon RN [facility] [address] 10/26/2020 08:13:59 Cyst of ovary 55616320 Active 021 Hue [facility] [address] 10/26/2020 08:14:07 Problem Notes None recorded. Procedures Surgical History Date Name Laterality Status Provider Name and Address Organization Details Recorded Time 04/02/19 20 Date of Last Mammogram completed Angi Scherer [address] 10/26/2020 08:29:56 04/02/19 Date of Last Colonoscopy completed Angi Scherer [address] 10/26/2020 08:31:16 abdominoplasty completed Hue krause RN [facility] [address] 10/26/2020 08:14:30 Gastric bypass for obesity completed Hue Brandon [facility] [address] 10/26/2020 08:14:41 ligation of fallopian tube completed Hue [facility] [address] 10/26/2020 08:14:50 Endometrial Ablation completed Angi Scherer [address] 11/17/2020 08:38:33 Imaging Results Imaging Date Name Status LastModified by Organization Details LastModified Time 09/30/2020 CT, abdomen + pelvis, w/ contrast completed BARCODE Information not available 10/26/2020 16:05:48 11/24/2020 US, transvaginal completed [email or web address] [address] [place], [address], 12/15/2020 09:30:38 11/24/2020 US, transvaginal completed [email or web address] [address] [place], [address], 11/24/2020 11:20:37 11/24/2020 MAMMO, screening, tomosynthesis, bilateral completed [email or web address] [address] [place] [address], [address], 12/15/2020 08:47:27 01/07/2021 US, transvaginal completed [email or web address] [address] [place], [address], 01/12/2021 10:34:54 01/07/2021 US, transvaginal completed [email or web address] [address] [place], [address], 01/12/2021 10:34:55 Procedure Notes None recorded. Medical Equipment None Reported. Allergies Allergen ID Allergen Name Allergen Category Reaction Reaction Severity Criticality Documentation Date Start Date Code Code System Note Provider Name and Address Organization Details Recorded Time 800267 Product containin g penicilli n and antibioti c (product) medicatio n rash Not available Not available 10/26/2020 59028 05 SNOMED Hue Brandon [facility] [address] 08:15:08 Medications Name Sig Start Date Stop Date Status Note LastModified by Organization Details LastModified Time cyclobenzap rine 10 mg tablet TAKE 1 TABLET BY MOUTH EVERY EIGHT HOURS NEEDED FOR SPASMS active Not Available Not Available No t Available methocarbam ol 500 mg tablet TK 1 T PO Q 8 H PRF SPASMS 10/26 completed Not Available Not Available Not Available Carafate 100 mg/mL oral suspension Take 10 mL 4 times a day by oral route. active Not Available Not Available No t Available azithromyci n 250 mg tablet active Not Available Not Available Not Available ibuprofen 800 mg tablet TAKE 1 TABLET BY MOUTH EVERY 6 HOURS NEEDED FOR PAIN active Not Available Not Available No t Available hydrocodone 5 mg-acetamin ophen 325 mg tablet TAKE 1 TO 2 TABLETS BY MOUTH EVERY 4 TO 6 HOURS NEEDED FOR ACUTE PAIN EXCEPTION active Not Available Not Available No t Available famotidine 40 mg tablet active Not Available Not Available Not Available metronidazo le 500 mg tablet TAKE 1 TABLET BY MOUTH TWICE DAILY FOR 7 DAYS active Not Available Not Available No t Available hydrocodone 10 mg-acetamin ophen 325 mg tablet TK 1 TO 2 TS PO Q 6 H PRN P 10/26 completed Not Available Not Available Not Available ondansetron 8 mg disintegrat ing tablet DISSOLVE 1 T IN MOUTH Q 8 H PRF NV 10/26 completed Not Available Not Available Not Available cephalexin 500 mg capsule TAKE 1 CAPSULE BY MOUTH EVERY 8 HOURS active Not Available Not Available No t Available pantoprazol e 40 mg tablet,juan yed release Take 1 tablet every day by oral route. active Not Available Not Available No t Available erythromyci n 5 mg/gram (0.5 %) eye ointment active Not Available Not Available Not Available esomeprazol e magnesium 40 mg capsule,del ayed release TAKE ONE CAPSULE BY MOUTH DAILY active Not Available Not Available No t Available methylpredn isolone 4 mg tablets in a dose pack FOLLOW PACKAGE DIRECTION S 10/26 completed Not Available Not Available Not Available celecoxib 100 mg capsule Take 1 capsule every day by oral route. active Not Available Not Available No t Available ondansetron 4 mg disintegrat ing tablet DISSOLVE 1 TABLET BY MOUTH EVERY 8 HOURS active Not Available Not Available No t Available fludrocorti sone 0.1 mg tablet Take 1 tablet every day by oral route. 11/17 completed Not Available Not Available Not Available neomycin 3.5 mg/g-polymy ricardo B 10,000 unit/g-dexa meth 0.1 % eye oint APPLY A THIN STRIP IN BOTH EYES TWICE DAILY X 14 DAYS active Not Available Not Available No t Available midodrine 10 mg tablet Take 1 tablet 3 times a day by oral route. 11/17 completed Not Available Not Available Not Available cyclobenzap rine 5 mg tablet TAKE 1 TABLET BY MOUTH THREE TIMES DAILY active Not Available Not Available No t Available Flovent HFA 110 mcg/actuati on aerosol inhaler Inhale 1 puff twice a day by inhalatio n route. active Not Available Not Available No t Available Amitiza 24 mcg capsule Take 1 capsule twice a day by oral route. active Not Available Not Available No t Available ProAir HFA 90 mcg/actuati on aerosol inhaler Inhale 2 puffs every 4 hours by inhalatio n route. active Not Available Not Available No t Available Symbicort 160 mcg-4.5 mcg/actuati on HFA aerosol inhaler 2 PUFFS BY MOUTH TWICE DAILY active Not Available Not Available No t Available Simponi 50 mg/0.5 mL subcutaneou s pen injector Inject 0.5 mL every month by subcutane ous route. active Not Available Not Available No t Available Vitals Date Recorded Body weight Respiratory rate Pain severity - 0-10 verbal numeric rating [Score] - Reported Oxygen saturation Oxygen saturation in Arterial blood by Pulse oximetry Body mass index (BMI) Body height Heart rate Provider Name and Address Organization Details Last Updated DateTime 1 20408.1 4 g 16 /min 0 99 % 99 % 21.8 kg/m2 160.02 cm 90 /min Angi Scherer [address] 08:37:13 Date Recorded Body height Body mass index (BMI) Body weight Respiratory rate Heart rate Oxygen saturation Oxygen saturation in Arterial blood by Pulse oximetry Provider Name and Address Organization Details Last Updated DateTime 1 160.02 cm 21.4 kg/m2 89720.6 8 g 16 /min 88 /min 98 % 98 % Angi Scherer [address] 08:41:06 Social History Question 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 Occasional Information not available 10/26/2020 What Is Your Level Of Caffeine Consumption? Moderate Information not available 10/26/2020 Sex: Unknown Functional Status None recorded. Mental Status None recorded. Family History Relationship Description Onset Age of this Age Resolved Age Notes LastModified by Organization Details LastModified Time Paternal Grandmother No current problems or disability breast cancer Not available 10/26/2020 08:27:54 Paternal Aunt Malignant tumor of colon [email or web address] Not available 10/01 09:34:06 Paternal Uncle Malignant tumor of colon [email or web address] Not available 10/01 09:34:09 Sister Polyp of colon [email or web address] Not available 10/01 09:33:53 Medical History Condition Response Anxiety/Depression Y Other Y GERD/Reflux Y Asthma Y Gynecological History Statement/Question Response Date of Last Pap Smear 04/02/2018 Date of Last Mammogram 04/02/2019 Date of Last Colonoscopy 04/02/2019 Date of LMP 07/31/2014 Most Recent Bone Density Menses Monthly N Age at Menarche 10 Current Control Method Tubal Ligat ion History of Abnormal Pap Smear Yes Obstetrics History GPAL:G 4 P 4 0 0 4 Type Value Full Term 4 Living 4 Total 4 Past Encounters Encounter ID Performer Location Encounter Start Date Encounter Closed Date Diagnosis/Indication Diagnosis SNOMED-CT Code Diagnosis ICD10 Code Diagnosis Note [id number] EDWIN BLAND MD [facility] [address] [facility] [place] [address] 10/26/2020 08:01:24 10/26/2020 09:50:24 Cyst of left ovary 0419414968 5982078 N83.202 45-year-ol d postmenopa usal patient presents for this follow-up of left ovarian cyst found on CT scan from evaluation in the emergency department 09/30/2020. That CT scan was done at [facility] ED. I personally reviewed that study and revealed the presence of a 2.5 cm left ovarian cyst. The reason for that was for evaluation of spine abscess status post spinal surgery. She denies any abnormal bleeding, she states she does occasional ly have some is mild intermitte nt and left lower quadrant pain but this has been present for quite a while and has not changed.Re assured patient that most likely this is an incidental finding and does not need any interventi on however transvagin al ultrasound is warranted to completely assess the nature and size of the cyst. We will schedule that study and will follow up In 4 weeks time for annual and discussion of results. Screening mammography 24 486253 Z12.31 Need for screening mammogram will schedule. Family his tory of cancer of colon 835499850 Z80.0 Review of family history is concerning for the possibilit y of genetic cancer syndrome specifical ly question [place] syndrome. Discussed this with the patient and gave her informatio n regarding [email or web address] genetics and website to do the online questionna jackeline to see if she qualifies for testing. I suspect that she does; and reassured her that we could do the testing here if she wishes to pursue it. [id number] EDWIN BLAND MD [facility] [address] [facility] [place] [address] 11/17/2020 08:15:50 11/17/2020 13:26:26 Gynecologic examination 65495002 Z01.419 Patient presents for annual exam. She is doing well without any specific concerns today. Pap smear with HPV done today. Family history reviewed, also individual risk factors discussed in giving recommenda tion as to when breast cancer screening should be started. Mammogram ordered. Encouraged self breast awareness and to call with any concerns regarding persistent breast pain (more than 2 weeks duration) and or any breast mass or abnormal appearance of the breast and/or nipple. recommend healthy diet, moderate regular exercise, and also discussed possible need for vitamin D supplement ation. All questions that she had today regarding general women's wellness were addressed. Recommend yearly annual follow-up. Cyst of left ovary 69215 80153 [id number] N83.202 No adnexal mass felt today; has not yet had ultrasound . Will re-order and call pt with results Health Concerns Section Related Observation LastModified by Organization Detai ls LastModified Time None Recorded Concern Status LastModified by Organization Details LastModified Time None Recorded Advance Directives Directive None Recorded Payers Encounter Date Sequence Insurance Name Policy Number Policy Ngo Covered Member ID Ngo Member ID Guarantor Name 10/26/2020 1 [place] Shayla Boyerpenelope Brandon [id number] Shayla Boyerpergrisel 10/26/2020 2 FOR LIFE Cameron Anyez [id number] Shayla Aypenelopeperez 11/17/2020 1 [place] Shayla Rosalind Brandon [id number] Shayla Ayalaperez 11/17/2020 2 [employer] LIFE Cameron Ayalaperez [id number] Shayla Aypenelopeperez Notes Date Note Type Note Provider Name and Address Organization Details Recorded Time 10/26/2020 text/html 45-year-old postmenopausal patient presents for this follow-up of left ovarian cyst found on CT scan from evaluation in the emergency department 09/30/2020. That CT scan was done at [facility] ED. I personally reviewed that study and revealed the presence of a 2.5 cm left ovarian cyst. The reason for that was for evaluation of spine abscess status post spinal surgery. She denies any abnormal bleeding, she states she does occasionally have some is mild intermittent and left lower quadrant pain but this has been present for quite a while and has not changed. She went through menopause approximately a 6 years ago has never been on hormonal placement therapy. EDWIN BLAND MD [address] [place], [address], [facility] [place] 10/26/2020 09:41:17 11/17/2020 text/html Annual GYNReport ed bypatient.History:no gynecologic complaints Menstrual cycle:no menses; S/P ablation Urinary symptoms:No hematuria; No incontinence Vulva:No genital lesion Vagina:Normal vaginal discharge Breast:No breast pain; No breast lump; No nipple discharge Current Contraception:Satisf ied with current contraception; Tubal ligation Sexual complaints:No sexual complaints; No pain during intercourse; Normal libido; occasional dryness with intercourse; uses lube Menopausal Symptoms:No menopausal symptoms;Inadequacy of lubrication of vaginal mucosa Psychological symptoms:No depression; No anxiety; No PMDD EDWIN BLAND MD [address] [place], [address], [facility] [place] 11/17/2020 09:07:17 OBGyn Episode No OBEpisode recorded.
--- OUTSIDE RECORDS SUMMARY | 2024-05-14 13:44 | XMS_ITS | Patient Health Record ---
Author Organization [facility] Address [address] [place] [address] Care Team Providers Care Associate Professor Of Sociology Name Role Phone Ramon Woods Unavailable [phone] Patient, patient Unavailable Unavailable Allergies Allergen (clinical drug ingredient) Drug/Non Drug Allergy documented on EMR Reaction Allergy Type Onset Date Status Penicillins penicillins (uncoded) rash Allergy Active Results Component Value Reference Range Notes Ultrasound guided injection right Reviewed date:08/28/2023 08:02:49 PM Interpretation: Performing Lab: Notes/Report: Ultrasound:DX Capsulitis/Soo nt Pain Rt Ankle Reviewed date:08/28/2023 08:37:08 PM Interpretation: Performing Lab: Notes/Report: Ultrasound:DX Foot, right Reviewed date:06/30/2023 11:10:26 AM Interpretation: Performing Lab: Notes/Report: Ultrasound:DX Foot, left Reviewed date:06/30/2023 11:10:35 AM Interpretation: Performing Lab: Notes/Report: X-ray: Foot, right 3v OBTAIN ED TODAY Reviewed date:06/30/2023 11:12:34 AM Interpretation: Performing Lab: Notes/Report: Image Accessible YES X-ray: Foot, left 3v OBTAINE D TODAY Reviewed date:06/30/2023 11:12:44 AM Interpretation: Performing Lab: Notes/Report: Image Accessible YES Ultrasound guided injection right Reviewed date:09/07/2023 11:12:01 AM Interpretation: Performing Lab: Notes/Report: Ultrasound guided injection right Reviewed date:07/17/2023 03:47:26 PM Interpretation: Performing Lab: Notes/Report: Ultrasound:DX Foot, right Reviewed date:08/11/2023 01:58:28 PM Interpretation: Performing Lab: Notes/Report: Ultrasound guided injection right Reviewed date:08/10/2023 02:53:34 PM Interpretation: Performing Lab: Notes/Report: Ultrasound guided injection right Reviewed date:08/05/2023 02:28:55 PM Interpretation: Performing Lab: Notes/Report: Ultrasound:DX Foot, right Reviewed date:08/28/2023 08:37:18 PM Interpretation: Performing Lab: Notes/Report: Reason For Referral No Information Medications Medication SIG (Take, Route, Fr equency, Duration) Notes Start Date End Date Status cyclobenzaprine 5 mg 1 tab(s) orally 3 times a day Active SUMAtriptan 100 mg 1 tab(s) orally once Active Linzess 145 mcg 1 cap(s) orally once a day Active Simponi Active omeprazole 20 mg as directed orally once a day Active levocetirizine 5 mg 1 tab(s) orally once a day (in the evening) Active DULoxetine 30 mg 1 cap(s) orally 2 times a day Active amitriptyline 10 mg 1 tab(s) orally once a day (at bedtime) Active Social History Tobacco Use: Social History [...] Problem Status W/U Status Risk Notes Problem Arthralgia of the ankle and/or foot (096031807) Pain in right ankle and joints of right foot (M25.571) Active confirmed Problem Instability of joint of left foot (finding) (30698702563515519 ) Other instability, left foot (M25.375) Active confirmed Problem Instability of joint of right foot (finding) (92849747696090427 ) Other instability, right foot (M25.374) Active confirmed Problem Arthralgia of the ankle and/or foot (013204213) Pain in left ankle and joints of left foot (M25.572) Active confirmed Problem Synovitis and/or tenosynovitis - ankle and/or foot (434562966) synovitis and tenosynovitis, right ankle and foot (M65.871) Active confirmed Problem Atherosclerosis of [place] arteries of the extremities (484738909848559) Unspecified atherosclerosis of [place] arteries of extremities, bilateral legs (I70.203) Active confirmed Problem Polyneuropathy due to type 2 diabetes mellitus (656277803) Type 2 diabetes mellitus with diabetic polyneuropathy (E11.42) Active confirmed Problem Peripheral venous insufficiency (20590721) Venous insufficiency (chronic) (peripheral) (I87.2) Active confirmed Problem Hereditary disorder of nervous system (768011627) 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) Active confirmed Problem 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) Active confirmed Problem 641133017 Other specified acquired deformities of right lower leg (M21.861) Active confirmed Problem Intermittent claudication of bilateral lower limbs co-occurrent and due to atherosclerosis (finding) (44377430165344620 ) Atherosclerosis of both lower extremities with intermittent claudication (I70.213) Active confirmed Problem Acquired polyneuropathy (87933018) Acquired polyneuropathy (G62.9) Active confirmed Vital Signs Heart Rate 81 /min 09/07/2023 Oximetry 99 09/07/2023 Blood pressure diastolic 63 mm Hg 09/07/2023 Height 63 in 09/07/2023 Blood pressure systolic 97 mm Hg 09/07/2023 Weight 106 lbs 09/07/2023 BMI 18.78 09/07/2023 Procedures Procedure Date Ordered Date Performed Result Body Sit e Injection Joint/Bursa W/US, Small 07/17/2023 07/17/2023 RT INJ TENDON SHEATH/LIGAMENT 07/31/2023 07/31/2023 RT Injection Joint/Bursa W/US, Small 08/10/2023 08/10/2023 RT INJ TENDON SHEATH/LIGAMENT 08/28/2023 08/28/2023 RT Injection Joint/Bursa W/US, Small 09/07/2023 09/07/2023 RT Encounters Encounter Location Date Provider Diagnosis Ramon Woods [facility] [address] [id number] 05/29/2023 Ramon Barbnicais 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, including hip D23.71 ; 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 ; Other benign neoplasm of skin of left lower limb, including hip D23.72 ; Other synovitis and tenosynovitis, right ankle and foot M65.871 and Other synovitis and tenosynovitis, left ankle and foot M65.872 Ramon Brodyis [facility] [address] [id number] 06/05/2023 Ramon Barbounis 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 ; Pain in right ankle and joints of right foot M25.571 ; Pain in left ankle and joints of left foot M25.572 ; Stiffness of right foot, not elsewhere classified M25.674 ; Stiffness of left foot, not elsewhere classified M25.675 ; Metatarsalgia, right foot M77.41 and Metatarsalgia, left foot M77.42 Ramon Barbounis [facility] [address] [id number] 07/17/2023 Ramon Barbounis Pain in right ankle and joints of right foot M25.571 ; 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 ; Other synovitis and tenosynovitis, right ankle and foot M65.871 ; Other enthesopathy of right foot and ankle M77.51 and Other instability, right ankle M25.371 Carson Barbounis [facility] [address] [facility] [address] [place], [place] [id number] 07/31/2023 Carson Barbounis Pain in right ankle and joints of right foot M25.571 ; 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 ; Metatarsalgia, right foot M77.41 ; Other synovitis and tenosynovitis, right ankle and foot M65.871 and Other instability, right ankle M25.371 Ramon Barbounis [facility] [address] [facility] [address] [place], [place] [id number] 08/10/2023 Carson Barbounis 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 ; Other synovitis and tenosynovitis, right ankle and foot M65.871 ; Other enthesopathy of right foot and ankle M77.51 and Other instability, right ankle M25.371 [facility] [facility] [address] [place], [place] [id number] 08/28/2023 Carson Barbounis Pain in right ankle and joints of right foot M25.571 ; 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 ; Other specified acquired deformities of right lower leg M21.861 ; Other synovitis and tenosynovitis, right ankle and foot M65.871 and Other instability, right ankle M25.371 Ramon Barbounis D[facility] [address] [facility] [address] [place], [place] [id number] 09/07/2023 Carson Barbounis 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 ; Other synovitis and tenosynovitis, right ankle and foot M65.871 ; Other enthesopathy of right foot and ankle M77.51 and Other instability, right ankle M25.371 Assessments Encounter Date Diagnosis (ICD Code) Assessment Notes Treatment Notes Treatment Clinical Notes Section Notes 05/29/2023 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 Treatment will consist of obtaining a vascular analysis test to evaluate the circulation to the lower extremities. A nerve conductive study to evaluate the severity, if any, damage to the nerves. Injections will be used to provide relief of painful symptoms followed by compression bandages to the feet, ankles and legs. A Nerve Biopsy may be performed to evaluate the epidermal nerve fiber density which could also be a causing factoe in the patients symptoms. Oral medication may be prescribed depending on the severity of the ailment. 06/05/2023 Pain in right ankle and joints of right foot (ICD-10 - M25.571) Discussed with patient to rest the extremity and reduce activity, apply ice for 10 minutes every two hours, maintain the strapping and apply compression dressing over the area and lastly, keep the extremity elevated above heart level with pillows 07/17/2023 Pain in right ankle and joints of right foot (ICD-10 - M25.571) Discussed with patient to rest the extremity and reduce activity, apply ice for 10 minutes every two hours, maintain the strapping and apply compression dressing over the area and lastly, keep the extremity elevated above heart level with pillows 06/05/2023 Idiopathic progressive neuropathy (ICD-10 - G60.3) Awaiting ENFD results 07/31/2023 Pain in right ankle and joints of right foot (ICD-10 - M25.571) Discussed with patient to rest the extremity and reduce activity, apply ice for 10 minutes every two hours, maintain the strapping and apply compression dressing over the area and lastly, keep the extremity elevated above heart level with pillows 08/28/2023 Pain in right ankle and joints of right foot (ICD-10 - M25.571) Discussed with patient to rest the extremity and reduce activity, apply ice for 10 minutes every two hours, maintain the strapping and apply compression dressing over the area and lastly, keep the extremity elevated above heart level with pillows 07/31/2023 Idiopathic progressive neuropathy (ICD-10 - G60.3) 09/07/2023 Idiopathic progressive neuropathy (ICD-10 - G60.3) 09/07/2023 Other synovitis and tenosynovitis, right ankle and foot (ICD-10 - M65.871) Discussed in detail with the patient the benefit of strapping to support and stabilize strained structures as well as immobilization to facilitate healing, decrease of inflammation and swelling 08/28/2023 Idiopathic progressive neuropathy (ICD-10 - G60.3) 08/28/2023 Other specified acquired deformities of right lower leg (ICD-10 - M21.861) 07/31/2023 Metatarsalgia, right foot (ICD-10 - M77.41) Discussed in detail with the patient the benefit of strapping to support and stabilize strained structures as well as immobilization to facilitate healing, decrease of inflammation and swelling 08/10/2023 Idiopathic progressive neuropathy (ICD-10 - G60.3) 08/10/2023 Other synovitis and tenosynovitis, right ankle and foot (ICD-10 - M65.871) Discussed in detail with the patient the benefit of strapping to support and stabilize strained structures as well as immobilization to facilitate healing, decrease of inflammation and swelling 07/17/2023 Idiopathic progressive neuropathy (ICD-10 - G60.3) ENFD results discussed in detail with patient. Discussed findings in detail. n. Patient understands and all questions and concerns have been addressed. 07/17/2023 Other synovitis and tenosynovitis, right ankle and foot (ICD-10 - M65.871) Discussed in detail with the patient the benefit of strapping to support and stabilize strained structures as well as immobilization to facilitate healing, decrease of inflammation and swelling 06/05/2023 Pain in left ankle and joints of left foot (ICD-10 - M25.572) 05/29/2023 Other benign neoplasm of skin of left lower limb, including hip (ICD-10 - D23.72) 05/29/2023 Other synovitis and tenosynovitis, right ankle and foot (ICD-10 - M65.871) 06/05/2023 Stiffness of right foot, not elsewhere classified (ICD-10 - M25.674) Radiographic findings were explained in detail to patient relating to the problem. Based on findings, see proposed treatment plan. 07/17/2023 Other enthesopathy of right foot and ankle (ICD-10 - M77.51) Advised the patient that capsulitis involves inflammatory changes of and around the joint. Capsular ligaments line your joint and are there to keep the bones aligned and joints working properly. Most people get foot capsulitis in the ball of their foot. Symptoms of capsulitis in the feet usually include swelling and pain. Rest, ice, anti inflammatories, and steroidal injections can all be beneficial in treating capsulitis. 08/10/2023 Other enthesopathy of right foot and ankle (ICD-10 - M77.51) Advised the patient that capsulitis involves inflammatory changes of and around the joint. Capsular ligaments line your joint and are there to keep the bones aligned and joints working properly. Most people get foot capsulitis in the ball of their foot. Symptoms of capsulitis in the feet usually include swelling and pain. Rest, ice, anti inflammatories, and steroidal injections can all be beneficial in treating capsulitis. 08/28/2023 Other synovitis and tenosynovitis, right ankle and foot (ICD-10 - M65.871) 09/07/2023 Other enthesopathy of right foot and ankle (ICD-10 - M77.51) Advised the patient that capsulitis involves inflammatory changes of and around the joint. Capsular ligaments line your joint and are there to keep the bones aligned and joints working properly. Most people get foot capsulitis in the ball of their foot. Symptoms of capsulitis in the feet usually include swelling and pain. Rest, ice, anti inflammatories, and steroidal injections can all be beneficial in treating capsulitis. 07/31/2023 Other synovitis and tenosynovitis, right ankle and foot (ICD-10 - M65.871) 08/10/2023 Other instability, right ankle (ICD-10 - M25.371) 09/07/2023 Other instability, right ankle (ICD-10 - M25.371) 08/28/2023 Other instability, right ankle (ICD-10 - M25.371) 07/17/2023 Other instability, right ankle (ICD-10 - M25.371) 07/31/2023 Other instability, right ankle (ICD-10 - M25.371) 05/29/2023 Other synovitis and tenosynovitis, left ankle and foot (ICD-10 - M65.872) 06/05/2023 Stiffness of left foot, not elsewhere classified (ICD-10 - M25.675) Radiographic findings were explained in detail to patient relating to the problem. Based on findings, see proposed treatment plan. 06/05/2023 Metatarsalgia, right foot (ICD-10 - M77.41) Discussed in detail with the patient the benefit of strapping to support and stabilize strained structures as well as immobilization to facilitate healing, decrease of inflammation and swelling 06/05/2023 Metatarsalgia, left foot (ICD-10 - M77.42) 05/29/2023 Other PLAN: Lab orde r for epidermal nerve fiber density performed to evaluate small fiber nerves. Purpose:Small fiber peripheral neuropathy leads to progressive degeneration and loss of epidermal nerve fibers. E.N.F.D allows the physician to detect and determine the extent of small fiber peripheral neuropathy by examining the number of epidermal nerve fibers in a small skin sample. Patient to follow post operative instructions as provided 06/05/2023 Other Patient is to use strappings with walking and weightbearing. Follow up 1 week. Will begin therapeutic injections at that time. 07/17/2023 Other ENFD results reviewed with patient. Theraupetic injection given to relief nerve pain and inflammation. Use compression strapping as directed. Follow up 1 week 07/31/2023 Other Therapeutic injection given to relief nerve pain and inflammation. Use strapping. Follow up 1 week 08/10/2023 Other Continue therapeutic injections to relief nerve pain and inflammation. Use compression stocking as directed. Follow up 1 week 08/28/2023 Other Therapeutic injection given to relief nerve pain and inflammation. Use strapping. Follow up 1 week Discussed in detail with the patient the benefit of strapping to support and stabilize strained structures as well as immobilization to facilitate healing, decrease of inflammation and swelling 09/07/2023 Other Patient was given therapeutic injections to relief continued nerve pain and inflammation. Use compression stocking as directed. Follow up as needed Plan Of Treatment Pending Test Test Name Order Date ENFD 05/29/2023 ANS - Autonomic Nervous System Function 05/09/2023 Future Test Test Name Order Date VASCULAR ANALYSIS 05/02/2023 Insurance Providers Payer Name Payer Address Payer Phone Subscriber Number Group Number Insured Name Patient Relationship to Insured Coverage Start Date Coverage End Date Medicare Part B [address] [place] [phone] [id number] Shayla Martins Self - patient is the insured For Life [address] [place] [id number] Shayla Martins Self - patient is the insured Medical (General) History Medical History History ICD Code Neuropathy Arthritis Surgical History Surgery Date(Month/Year) Lower back fusion 2021 Upper neck fusion 2020 Hospitalization History Reason Date(Month/Year) see surgical hx above
--- OUTSIDE RECORDS SUMMARY | 2024-05-14 13:44 | XMS_ITS ---
Author Organization [facility] Address [address] [place] [id number] Care Team Providers Care Perinatal Social Worker Name Role Phone José Antonio Villaseñor Iii, MD Primary Care Provider Evelyn dorothyzachary Rucker, Boheidi May [phone] Allergies Allergen (clinical drug ingredient) Drug/Non Drug Allergy documented on EMR Reaction Allergy Type Onset Date Status Penicillin Unknown Drug Allergy Active REASON FOR VISIT path report Medications Medication SIG (Take, Route, Frequency, Duration) Notes Start Date End Date Status Ondansetron HCl 4 MG 1 tablet Orally Onc e a day for 30 days prn 12/16/2021 Active Dicyclomine HCl 10 mg TAKE 1 CAPSULE SONI RY 12 HOURS Active Pantoprazole Sodium 40 MG 1 tablet Orall y every 12 hours for 90 days 08/15/2023 Active Flovent HFA 110 MCG/ACT 2 puffs Inhalati on Twice a day Active Simponi 50 MG/0.5ML as directed Subcutaneous Active Omeprazole 20 mg TAKE 1 CAPSULE EVERY 12 HOURS prn Active Famotidine 40 mg TAKE 1 TABLET EVERY 12 HOURS Active Albuterol Sulfate HFA 108 (90 Base) MCG/ACT 1 puff as needed Inhalation every 4 hrs prn Active Sucralfate 1 GM/10ML TAKE 10 MLS ON AN E MPTY STOMACH EVERY 6 HOURS Active Social History Sex Assigned At : Social History Observation Description Sex Assigned At Female Section Notes: Occasional alcohol use No illicit drug use Vital Signs Height 63 in 12/11/2023 Weight 101 lbs 12/11/2023 BMI 17.89 kg/m2 12/11/2023 Blood pressure systolic 116 mm Hg 12/11/19 24 Blood pressure diastolic 70 mm Hg 024 Heart Rate 70 /min 12/11/2023 Oximetry 99 % 12/11/2023 Weight-kg 45.81 kg 12/11/2023 Encounters Encounter Location Date Provider Diagnosis [facility] [address] [place] [address] 12/11/2023 Bo Rucker Gastric ulcer K25.9 and Dyspepsia K30 Assessments Encounter Date Diagnosis (ICD Code) Assessment Notes Treatment Notes Treatment Clinical Notes Section Notes 12/11/2023 Gastric ulcer (ICD-10 - K25.9) 03/22/2022 This ulcer seems to be chronic in nature as per patient DC pantoprazole and start on omeprazole Will follow up clinically in 3 month Hubert consider repeating EGD to asses for healing 06/19/2022 Will schedule her for EGD on the next appointment 08/22/2022 Will move forward with EGD to asses for healing of the PUD Continue on PPi bid and sucralfate. 09/03/2023 EGD performed on 08/15/23 showing gastric bypass characterized by ulceration. Patient continues on Sucralfate and Pantoprazole 40mg bid and will proceed with 8 week f/u EGD to monitor healing. Discussed possible differential diagnosis, and reviewed risks, alternatives and benefits of the procedure. 12/11/2023EGD findings biopsy results revised discussed with patient orthophoto tech/draftsman used to make clinical decisions. No HP in gastric biopsies. Ulcer most likely ischemic due to her surgery. Will continue on maximal acid suppressive therapy and follow-up clinical evaluation. No history of GI bleeding. 12/11/2023 Dyspepsia (ICD-10 - K30) 12/16/2021 Will increase [...] twice daily did not improve her symptomatology. 4Results of EGD revised discussed with patient.Patient continues with some dyspepsia symptoms although improved. She is on PPI twice daily as well as Carafate. She has not had to use H2 blockers at this point. She feels her symptoms are better. Some breakthrough heartburn symptoms. Will perform therapeutic trial with Voquezna 10 mg daily and follow clinical response. Samples given. Plan Of Treatment Next Appt Details Follow Up: 3 Months, Reason: Progress Notes * Shayla SUMNERDOB:[birth year] (48 yo F)Acc No.[id number]:12/11/2023 Progress Notes Patient:?FLOWERSShayla FAJARDO Provider:?Bo Rucker M.D. :1975???Age:48 Y???Sex:Female D ate:12/11/2023 Address:[address] [place], [place] [id number] Pcp:José Antonio Villaseñor Iii, MD Subjective: * Chief Complaints: * ???Path report * HPI: ???Today's Visit::?Case of a 48-year-old female patient that comes in today for follow-up s/p EGD showing gastric bypass characterized by ulceration. Biopsies negative for h.pylori or dysplasia. She continues on PPI bid and Sucralfate qid with moderate relief of?intermittent epigastric cramping severe abdominal pain. She continues with?famotidine bid as well. FU EGD still with ulceration. She comes in today for follow up. Patient refers she is doing better. She continues on pantoprazole twice daily as well as sucralfate twice daily. Dyspepsia symptoms controlled. She does have some heartburn symptoms sporadically intermittently. She denies nausea vomiting. She denies melena hemaotchezia heartburn dyspepsia hematemesis coffee-ground emesis. Refers her constipation symptoms are under control with Linzess 145 mcg daily. She comes in today for follow-up. * ROS:?General/Constitutional:?Denies?Fever.?Denies?Weight gain.?Denies?Weight loss (dieting).?Gastrointestinal:?Denies?Urinary Incontinence.?Denies?Fecal incontinence.?Respiratory:?Denies?Chronic [...] every 4 hrs , Notes to Pharmacist: prnSucralfate 1 GM/10ML Suspension TAKE 10 MLS ON AN EMPTY STOMACH EVERY 6 HOURS Flovent HFA 110 MCG/ACT Aerosol 2 puffs Inhalation Twice a day Simponi 50 MG/0.5ML Solution Auto-injector as directed Subcutaneous Ondansetron HCl 4 MG Tablet 1 tablet Orally Once a day , Notes to Pharmacist: prnDicyclomine HCl 10 mg Capsule TAKE 1 CAPSULE EVERY 12 HOURS Pantoprazole Sodium 40 MG Tablet Delayed Release 1 tablet Orally every 12 hours Taking Omeprazole 20 mg Capsule Delayed Release TAKE 1 CAPSULE EVERY 12 HOURS , Notes to Pharmacist: prnTaking Famotidine 40 mg Tablet TAKE 1 TABLET EVERY 12 HOURS Taking Albuterol Sulfate HFA 108 (90 Base) MCG/ACT Aerosol Solution 1 puff as needed Inhalation every 4 hrs , Notes to Pharmacist: prnTaking Sucralfate 1 GM/10ML Suspension TAKE 10 MLS ON AN EMPTY STOMACH EVERY 6 HOURS Taking Flovent HFA 110 MCG/ACT Aerosol 2 puffs Inhalation Twice a day Taking Simponi 50 MG/0.5ML Solution Auto-injector as directed Subcutaneous Taking Ondansetron HCl 4 MG Tablet 1 tablet Orally Once a day , Notes to Pharmacist: prnTaking Dicyclomine HCl 10 mg Capsule TAKE 1 CAPSULE EVERY 12 HOURS Taking Pantoprazole Sodium 40 MG Tablet Delayed Release 1 tablet Orally every 12 hours * Allergies:?Penicillinno[Ben rgies Verified] Objective: * Vitals:?Ht: 63 in, Wt: 101 l bs, BMI:17.89Index, BP:116/70mm Hg, HR:70/min, Oxygen sat %:99%, Wt-k.81 kg. Past Vitals:* 09/03/2023 Ht: 63 in, Wt: 101 lbs * [...] time , normal sensation , short and prison memory intact?.?PSYCH:?normal mood with appropriate affect?.? Assessment: * Assessment: 1.?Gastric ulcer - K25.9 (Pr ardenary)???Notes :03/22/2022This ulcer seems to be chronic in nature as per patientDC pantoprazole and start on omeprazoleWill follow up clinically in 3 monthWil consider repeating EGD to asses for healing06/19/2022Will schedule her for EGD on the next appointment08/22/2022Will move forward with EGD to asses for healing of the PUDContinue on PPi bid and sucralfate.09/03/2023 EGD performed on 08/15/23 showing gastric bypass characterized by ulceration. Patient continues on Sucralfate and Pantoprazole 40mg bid and will proceed with 8 week f/u EGD to monitor healing. Discussed possible differential diagnosis, and reviewed risks, alternatives and benefits of the procedure. 12/11/2023EGD findings biopsy results revised discussed with patient orthophoto tech/draftsman used to make clinical decisions.? No HP in gastric biopsies.? Ulcer most likely ischemic due to her surgery. Will continue on maximal acid suppressive therapy and follow-up clinical evaluation.? No history of GI bleeding.???2.?Dyspepsia - K30???Notes :12/16/2021Will increase PPI to bid. Results of recent CAT scan and ER visit revise and discuss with axwseny29/2/2022ontinue on PPi bidWill add sucralfate qidWill do EGD to asses for PUD [email or web address]/21/2022Will add H2 blockersContinue on sucralfate tid as [...] and biopy findings revise and discuss with [email or web address] 06/01/2022atient symptomatology is controlled with current management protocol. Nevertheless she continues with some breakthrough symptoms. She would like to reduce pill burden as well. Will discontinue omeprazole twice daily and transition her to lansoprazole daily. Pantoprazole twice daily did not improve her symptomatology. 12/11/2023esults of EGD revised discussed with patient.Patient continues with some dyspepsia symptoms although improved.? She is on PPI twice daily as well as Carafate.? She has not had to use H2 blockers at this point.? She feels her symptoms are better.? Some breakthrough heartburn symptoms.? Will perform therapeutic trial with Voquezna 10 mg daily and follow clinical response. Samples given.? Plan: * Treatment: * Procedure Codes:? * Follow Up:?3 Months * Images: Billing Information: * Visit Code:? 31475 Office or other outpatient visit for the evaluation and management of an established patient, which requires at least 2 of these 3 duckworth components: a. * Procedure Codes:? * Sign off status: Completed true * Provider:?Bo Rucker M.D. Date:?12/01 Generated for Vj lindsay/Nickolas/Lilaitting on:?05/14/2024 01:44 PM EST History and Physical Notes * HPI (History of Present Illness) Category Sub-Category Detail Notes Category Not es Today's Visit: Case of a 48- year-old female patient that comes in today for follow-up s/p EGD showing gastric bypass characterized by ulceration. Biopsies negative for h.pylori or dysplasia. She continues on PPI bid and Sucralfate qid with moderate relief of intermittent epigastric cramping severe abdominal pain. She continues with famotidine bid as well. FU EGD still with ulceration. She comes in today for follow up. Patient refers she is doing better. She continues on pantoprazole twice daily as well as sucralfate twice daily. Dyspepsia symptoms controlled. She does have some heartburn symptoms sporadically intermittently. She denies nausea vomiting. She denies melena hemaotchezia heartburn dyspepsia hematemesis coffee-ground emesis. Refers her constipation symptoms are under control with Linzess 145 mcg daily. She comes in today for follow-up. 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
--- OUTSIDE RECORDS SUMMARY | 2024-05-14 13:44 | XMS_ITS ---
Author Organization [facility] Address [address] [place] [address] Care Team Providers Care Whiskey Filterer Name Role Phone Ramon Woods Unavailable Patient, patient Unavailable Unavailable Allergies Allergen (clinical drug ingredient) Drug/Non Drug Allergy documented on EMR Reaction Allergy Type Onset Date Status Penicillins penicillins (uncoded) rash Allergy Active Results Component Value Reference Range Notes Ultrasound guided injection right Reviewed date:09/07/2023 11:12:01 AM Interpretation: Performing Lab: Notes/Report: REASON FOR VISIT Burning, Tingling and Numbness Bilateral feet, Right foot leg pain Medications Medication SIG (Take, Route, Fr equency, Duration) Notes Start Date End Date Status Simponi Active omeprazole 20 mg as directed orally once a day Active levocetirizine 5 mg 1 tab(s) orally once a day (in the evening) Active DULoxetine 30 mg 1 cap(s) orally 2 times a day Active amitriptyline 10 mg 1 tab(s) orally once a day (at bedtime) Active cyclobenzaprine 5 mg 1 tab(s) orally 3 times a day Active SUMAtriptan 100 mg 1 tab(s) orally once Active Linzess 145 mcg 1 cap(s) orally once a day Active Social History Tobacco Use: Social History [...] week (3 points) Points 3 Interpretation Positive Vital Signs Blood pressure systolic 97 mm Hg 09/07/19 24 Blood pressure diastolic 63 mm Hg 024 Heart Rate 81 /min 09/07/2023 Height 63 in 09/07/2023 Weight 106 lbs 09/07/2023 BMI 18.78 09/07/2023 Oximetry 99 09/07/2023 Procedures Procedure Date Ordered Date Performed Result Body Sit e Injection Joint/Bursa W/US, Small 09/07/2023 09/07/2023 RT Encounters Encounter Location Date Provider Diagnosis Ramon Woods [facility] [address] [id number] 09/07/2023 Ramon Woods 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 ; Other synovitis and tenosynovitis, right ankle and foot M65.871 ; Other enthesopathy of right foot and ankle M77.51 and Other instability, right ankle M25.371 Assessments Encounter Date Diagnosis (ICD Code) Assessment Notes Treatment Notes Treatment Clinical Notes Section Notes 09/07/2023 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 09/07/2023 Other instability, right ankle (ICD-10 - M25.371) 09/07/2023 Other Patient was given therapeutic injections to relief continued nerve pain and inflammation. Use compression stocking as directed. Follow up as needed Plan Of Treatment Treatment Notes Assessment Notes Other Patient was given th erapeutic injections to relief continued nerve pain and inflammation. Use compression stocking as directed. Follow up as needed Next Appt Details Follow Up: prn, Reason: Procedure Notes * Category Sub-Category Detail Notes (11494)Foot/Ankle Purpose Strapping of t he foot and [...] ankle Type of Strapping Modified Hurt Compr ession, to knee, Surgigrip size: E Patient Instructions Patient instructed to leave strapping intact for 24 hours, then may remove. Patient was advised to remove strapping sooner should become uncomfortable., Upon removal of strapping, patient to continue use of Surgi-picture engraver Materials Used Tubigrip/Coban Joint Injection Right small joint Medial Subtala r Joint .5cc 0.5% Marcaine and 1.5cc 4mg.ml Dexamethasone Procedure in detail: A #25 gauge 1.5 needle filled with the solution noted was introduced into the site using a guided ultrasound throughout the procedure to avoid vascular trauma and in order to evaluate accurate needle placement in structure. Following the injection, pressure was maintained. Patient tolerated the procedure well Trigger Point Injection Right Location : Posterior Tibial Tendon 1.0cc Lidocaine 2%, 1.0cc Vitamin B12, X-RAY & DIAGNOSTIC IMAGING: OBTAINED AND REVIEWED BY PHYSICIAN NEEDLE GUIDED ULTRASOUND Needle Guided Ultrasound was performed today during the patients examination. Please refer to report in Diagnostic Imaging. Permanently recorded images saved and available upon request Progress Notes * Garry TILLEY:[birth year] (48 yo F)Acc No.[id number]:09/07/2023 Patient:?Shayla TILLEY Provider:?Ramon Woods DPM :1975???Age:48 Y???Sex:Female D ate:09/07/2023 Address:[address] [place], [place] [id number] Subjective: * Chief Complaints: * ???Burning, Tingling [...] foot, on the bottom of the foot.?pain scale?,1/10.?parasthesia scale?,4/10.?Patient comes to office for continuation of b12 injections. Patient states mild pain, and moderate tingling sensation.? Patient states the B12 injections are helping, and she sees improvement at this time. ???Right foot:?Duration?3 years.?Symptoms?for?more than 6 months?numbness, burning [...] physical activity?, Relieved: nothing at this time?.?pain scale?,04/11.?parasthesia scale?07/10.?Bilateral feet:?pain?at rest, on both sides, on the [...] Objective: * Vitals:?Height:63, Weight:10 6, BMI:18.78, Blood Pressure:97/63, Heart Rate:81, O2 Sat: 99, Pain Scale:1, Shoe Size: 7.5-8. 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 Plan: * Treatment: 2.?Other enthesopathy of rig ht foot and ankle?Imaging: Ultrasound guided injection right (Performed Date - 09/07/2023)?Procedure: Injection Joint/Bursa W/US, Small (Performed Date - 09/07/2023)?RT Clinical Notes: Advised the patient that capsulitis involves inflammatory [...] injections can all be beneficial in treating capsulitis.?? 3.?Others? Notes: Patient was given therapeutic injections to relief continued nerve pain and inflammation. Use compression stocking as directed. Follow up as needed ?? * Procedures:?Trigger Point Injection:?Right?Location: Posterior Tibial Tendon 1.0cc Lidocaine 2%, 1.0cc Vitamin B12, .?Joint Injection:?Right small joint?Medial Subtalar Joint .5cc 0.5% Marcaine and 1.5cc 4mg.ml Dexamethasone Procedure in detail: A #25 gauge 1.5 needle filled with the solution noted was introduced into the site using a guided ultrasound throughout the procedure to avoid vascular trauma and in order to evaluate accurate needle placement in structure. Following the injection, pressure was maintained. Patient tolerated the procedure well.?(85730)Foot/Ankle:?Purpose?Strapping of the foot and ankle consisting of [...] of strapping, patient to continue use of Surgi-picture engraver .?X-RAY & DIAGNOSTIC IMAGING: OBTAINED AND REVIEWED BY PHYSICIAN:?NEEDLE GUIDED ULTRASOUND?Needle Guided Ultrasound was performed today during the patients examination. Please refer to report in Diagnostic Imaging.?Permanently recorded images saved and available upon request ?.? * Procedure Codes:?91980 STRAP PING OF ANKLE AND/OR FT, Modifiers: [place] 66993 DRAIN/INJ JOINT/BURSA W/US, Modifiers: [place] [address]50 ULTRASOUND GUIDANCE FOR NEEDLE PLACEMENT, Modifiers: 59 [...] concerns prior to next appointment. * Follow Up:?prn * Billing Information: * Visit Code:? 21263 OFFICE VISIT EST. Modifiers: 25 * Procedure Codes:? 28183 STRAPPING OF ANKLE AND/[place]. [place]: [place] 19039 DRAIN/INJ JOINT/BURSA W/US. Modifiers: [place] [address]360 ULTRASOUND GUIDANCE FOR NEEDLE PLACEMENT. Modifiers: 59 J1100 INJ DEXAMETHOSONE SODIM PHOSHATE 1 MG. * Sign off status: Completed true * Provider:?Ramon Woods DPM Date:?09/07/2023 Generated for Vj lindsay/Nickolas/Marycruz on:?05/14/2024 01:43 PM EST History and Physical Notes * [...] comes to office for continuation of b12 injections. Patient states mild pain, and moderate tingling sensation. Patient states the B12 injections are helping, and she sees improvement at this time. weakness throughout the foot, noticed when walking [...] Relieved: nothing at this time pain scale , 1/10 parasthesia scale , 4/10 ConservativeTreatment Denies prior treat ment Duration 3 [...] Relieved: nothing at this time pain scale , 1/10 parasthesia scale 4/10 Conservative Treatment Denies prior alvaro tment Duration [...] nerve Vibratory Bilateral great toe lesser digits [place] 5.07 Monofilament Bilat eral hallux lesser digits [...]
[2024-05-14 16:41] VITALS: BP 144/82; PULSE 76; RESP 20; TEMP 36.7; O2SAT 100
[2024-05-14] MEDS: Acetaminophen 325 MG TABLET 650 MG PO (16:44)
[2024-05-14 20:54] VITALS: BP 136/84; PULSE 80; RESP 16; TEMP 36.7; O2SAT 100
[2024-05-14] MEDS: Magnesium Hydrox/Alum Hydrox 30 ML ORAL.SUSP PO (23:55)
[2024-05-14] MEDS: Lidocaine HCl Viscous 2 % 15 ML SOLUTION MUCOUS MEM (23:55)
[2024-05-15 00:38] VITALS: BP 113/78; PULSE 83; RESP 20; TEMP 37.3; O2SAT 100
[2024-05-15 01:15] VITALS: BP 113/78; PULSE 83; RESP 20; TEMP 37.3; O2SAT 100
== END 2024-05-15 01:15 | disposition home or self-care (01) ==
PROVIDERS: Physician Assistant; Emergency Provider Emergency Medicine; PCP Internal Medicine
DX: K29.70 Gastritis, unspecified, without bleeding (principal); K59.00 Constipation, unspecified; R11.2 Nausea with vomiting, unspecified; R10.2 Pelvic and perineal pain; Z98.84 Bariatric surgery status; Z79.899 Other long term (current) drug therapy
CPT/HCPCS: 36415; 74018; 80048; 80076; 83690; 83735; 85025; 99283; 99284

== ENCOUNTER → 2024-05-14 11:37 | Outpatient (BNV) | payer MEDICARE, OTHER, SELFPAY | PROVIDERS: PCP Internal Medicine; Visit Provider Radiology Diagnostic Radiology | DX: K59.00 Constipation, unspecified (principal) | CPT/HCPCS: 74018 ==